=== PATIENT | female | born 1990 | race Hispanic/Latino ===

== ENCOUNTER 2018-07-15 08:18 | Emergency (ER) | payer OTHER ==
--- OUTSIDE RECORDS SUMMARY | 2018-07-15 08:21 | XMS REPORT ---
:1990 [facility] Address [address] [place] [address] Care Team Providers Name Role Phone EDWARD THAKKAR Unavailable Unavailable Problems This patient has no known problems. Allergies, Adverse Reactions, Alerts This patient has no known allergies or adverse reactions. Medications This patient has no known medications. Encounters Start End Encounter Admission Attending Care Care Encounter Date/Time Date/Time Type Type Clinicians Facility Department ID 2017-12-02 2017-12-02 Emergency E BRAYAN THAKKAR [facility] [id number] 11:36:00 12:06:00 EDWARD
[2018-07-15] MEDS ORDERED: NA CHLORIDE 0.9% 1,000 ML ONE (09:06)
[2018-07-15 09:32] LABS: Absolute Lymphocytes (CBC) 1.1 K/uL (0.7-4.9); Absolute Monocytes 0.4 K/uL (0.1-1.3); Absolute Neutrophil 2.2 K/uL (1.8-8.0); Basophils % 0.2 % (0-1.3); Eosinophils % 1.2 % (0-4.4); Hematocrit 37.5 % (36.0-45.0); Lymphocytes % 28.2 % (15.3-44.8); MCH 24.1 pg (27.0-35.0); MCV 72.9 fL (80-100); MPV 7.9 fL (7.6-11.3); Monocytes % 11.7 % (3.3-12.3); RBC Red Blood Cell Count 5.15 M/uL (3.86-4.86)
[2018-07-15 09:47] LABS: ALT/SGPT 55 U/L (12-78); AST/SGOT 36 U/L (15-37); Albumin 3.7 g/dL (3.4-5.0); Alkaline Phosphatase 78 U/L (45-117); BUN Blood Urea Nitrogen 13 mg/dL (7-18); Bicarbonate 24 mmol/L (21-32); Bilirubin Direct < 0.1 mg/dL (0-0.2); Bilirubin Total 0.2 mg/dL (0.2-1.0); Glucose Level 102 mg/dL (74-106); Lipase 117 U/L (73-393); Potassium 3.8 mmol/L (3.5-5.1); Protein, Total 8.5 g/dL (6.4-8.2); Sodium Level 139 mmol/L (136-145)
[2018-07-15 10:15] LABS: Urine Blood NEGATIVE (NEG); Urine Glucose NEGATIVE (NEG); Urine Protein NEGATIVE (NEG); Urine Specific Gravity 1.025 (1.005-1.030); Urine pH 5.5 (5.0-7.0)
--- NOTE | 2018-07-15 10:36 | RAD REPORT ---
EXAM DESCRIPTION: CT - Abdomen Pelvis W Contrast - 07/15/2018 10:13 am CLINICAL HISTORY: Abdominal pain, prior cholecystectomy, prior ectopic COMPARISON: None. TECHNIQUE: Biphasic, helical CT imaging of the abdomen and pelvis was performed following 100 ml non -ionic IV contrast. Oral contrast was given. All CT scans are performed using dose optimization technique as appropriate and may include automated exposure control or mA/KV adjustment according to patient size. FINDINGS: No suspicious findings in the lung bases. The liver, spleen, and pancreas show no suspicious findings. Cholecystectomy clips are present. No bi liary tree dilatation. Symmetric renal function is seen with no hydronephrosis or suspicious renal mass. No pyelonephritis o r acute renal parenchymal process. Contracted urinary bladder shows no suspicious finding. No uterine or ovarian suspicious finding. There is a 2.3 centimeter left ovarian or paraovarian cyst and a probable 15 millimeter right ovarian cyst. Trace free fluid in the cul-de-sac is within physiol ogic limits. No gastric dilatation or gastric wall thickening. No dilated small bowel loops. Colon is not dilated. There is no appendicitis. Patient has numerous central mesenteric lymph nodes. There is a mild congestion or edema of the mesen teric fat. No abnormal aortic lymphadenopathy. There are few nonspecific aortoiliac chain lymph nodes . No free air or pneumatosis. No hernia, mass or bulky lymphadenopathy. No adrenal abnormality. No suspicious bony findings. IMPRESSION: Moderately prominent mesenteric adenitis pattern. No appendicitis or emergent finding.
--- NOTE | 2018-07-15 10:39 | ER ---
Nurse's Notes [facility] Name: Lesly Carlin Age: 27 yrs Sex: Female : 1990 Arrival Date: 07/15/2018 Time: 08:22 Bed 20 Private MD: None, None Diagnosis: Nonspecific mesenteric lymphadenitis Presentation: 07/15 08:45 Presenting complaint: Patient states: has had mid abd pain since Friday, also has iw diarrhea and nausea, vomited once, son was diagnosed with stomach flu recently. Transition of care: patient was not received from another setting of care. Onset of symptoms was July 15, 2018. 08:45 Method Of Arrival: Ambulatory iw 08:45 Acuity: DI 3 iw 08:48 Risk Assessment: Do you want to hurt yourself or someone else? Patient reports no tw2 desire to harm self or others. Initial Sepsis Screen: Does the patient meet any 2 criteria? No. Patient's initial sepsis screen is negative. Does the patient have a suspected source of infection? No. Patient's initial sepsis screen is negative. Care prior to arrival: None. 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 tw2 Historical: - Allergies: 08:57 Morphine; iw - PMHx: 08:57 Anxiety; PTSD; Anemia; iw - PSHx: 08:57 Cholecystectomy; ectopic ; iw - Immunization history:: Adult Immunizations up to date. - Ebola Screening: : Patient denies travel to an Ebola-affected area in the 21 days before illness onset. - Social history:: Smoking status: Patient/guardian denies using tobacco. Screenin:48 Abuse screen: Denies threats or abuse. Nutritional screening: No deficits noted. tw2 Tuberculosis screening: No symptoms or risk factors identified. Fall Risk None identified. Assessment: 09:17 General: Appears in no apparent distress. obese, well groomed, Behavior is calm, tw2 cooperative, appropriate for age. Pain: Complains of pain in abdomen. Neuro: Level of Consciousness is awake, alert, obeys commands, Oriented to person, place, time, situation. Cardiovascular: Denies chest pain, shortness of breath, Heart tones S1 S2 Patient's skin is warm and dry. Respiratory: Airway is patent Respiratory effort is even, unlabored, Respiratory pattern is regular, symmetrical, Breath sounds are clear bilaterally. GI: Abdomen is round non-distended, Bowel sounds present X 4 quads. Abd is soft X 4 quads Reports diarrhea, nausea, vomiting. : No signs and/or symptoms were reported regarding the genitourinary system. EENT: No signs and/or symptoms were reported regarding the EENT system. Derm: No signs and/or symptoms reported regarding the dermatologic system. Skin is intact, is healthy with good turgor, Skin temperature is warm. Musculoskeletal: Range of motion: intact in all extremities. 10:10 Reassessment: Patient appears in no apparent distress at this time. No changes from tw2 previously documented assessment. Patient and/or family updated on plan of care and expected duration. Pain level reassessed. Patient is alert, oriented x 3, equal unlabored respirations, skin warm/dry/pink. 10:42 Reassessment: Patient appears in no apparent distress at this time. No changes from tw2 previously documented assessment. Patient and/or family updated on plan of care and expected duration. Pain level reassessed. Patient is alert, oriented x 3, equal unlabored respirations, skin warm/dry/pink. Vital Signs: 08:55 BP 125 / 72; Pulse 71; Resp 16; Temp 98.1(O); Pulse Ox 98% on R/A; Weight 120.2 kg; iw Height 5 ft. 9 in. (175.26 cm); 09:55 BP 91 / 52; Pulse 58; Resp 17; Pulse Ox 97% on R/A; tw2 10:09 BP 91 / 44; Pulse 61; Resp 17; Pulse Ox 98% on R/A; tw2 10:42 BP 90 / 64; Pulse 52; Resp 17; Pulse Ox 100% on R/A; tw2 08:55 Body Mass Index 39.13 (120.20 kg, 175.26 cm) iw ED Course: 08:22 Patient arrived in ED. mr 08:23 None, None is Private Physician. mr 08:24 Daniel Loera PA is PHCP. jr8 08:24 Saleem Gates MD is Attending Physician. jr8 08:46 Beth Avilez, DEVENDRA is Primary Nurse. tw2 08:48 Arm band placed on. tw2 08:48 Bed in low position. Call light in reach. Pulse ox on. NIBP on. tw2 08:55 Triage completed. iw 09:17 Missed attempt(s): 22 gauge in right antecubital area. Bleeding controlled, band aid tw2 applied, catheter tip intact. Inserted saline lock: 22 gauge in right antecubital area, using aseptic technique. Blood collected. 10:14 CT Abd/Pelvis - W/Contrast In Process Unspecified. EDND 10:19 CT completed. Patient tolerated procedure well. Patient moved to TN via wheelchair. Patient moved back from TN. 10:46 No provider procedures requiring assistance completed. IV discontinued, intact, tw2 bleeding controlled, No redness/swelling at site. Pressure dressing applied. Administered Medications: 09:16 Drug: NS 0.9% 1000 ml Route: IV; Rate: 1000 ml; Site: right antecubital; tw2 10:41 Follow up: IV Status: Completed infusion; IV Intake: 1000ml tw2 Intake: 10:41 IV: 1000ml; Total: 1000ml. tw2 Outcome: 10:38 Discharge ordered by . arya 10:46 Discharged to home ambulatory. tw2 10:46 Condition: stable 10:46 Discharge instructions given to patient, Instructed on discharge instructions, follow up and referral plans. no drinking with medication, no driving heavy equipment, medication usage, Demonstrated understanding of instructions, follow-up care, medications, Prescriptions given X 2. 10:47 Patient left the ED. tw2 Signatures: Dispatcher [employer] EDND Zulema Balderas Susan sj Williams, Irene, RN DEVENDRA Daniel Loera PA PA jr8 Wise, Tara, RN RN tw2
--- NOTE | 2018-07-15 10:39 | EDPHYS ---
Physician Documentation [facility] Name: Lesly Carlin Age: 27 yrs Sex: Female : 1990 Arrival Date: 07/15/2018 Time: 08: Bed 20 Private MD: None, None ED Physician Saleem Gates HPI: 07/15 08:58 This 27 yrs old Female presents to ER via Ambulatory with complaints of jr8 Abdominal Pain. 08:58 The patient presents with abdominal pain in the upper abdomen. Onset: The jr8 symptoms/episode began/occurred acutely, 1 week(s) ago. The symptoms do not radiate. Associated signs and symptoms: Pertinent positives: nausea, vomiting, and diarrhea. The symptoms are described as crampy. Modifying factors: The symptoms are alleviated by nothing, the symptoms are aggravated by nothing. Severity of pain: At its worst the pain was moderate in the emergency department the pain is unchanged. The patient has not experienced similar symptoms in the past. The patient has not recently seen a physician. 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 tw2 Historical: - Allergies: 08:57 Morphine; iw - PMHx: 08:57 Anxiety; PTSD; Anemia; iw - PSHx: 08:57 Cholecystectomy; ectopic ; iw - Immunization history:: Adult Immunizations up to date. - Ebola Screening: : Patient denies travel to an Ebola-affected area in the 21 days before illness onset. - Social history:: Smoking status: Patient/guardian denies using tobacco. ROS: 08:58 Eyes: Negative for injury, pain, redness, and discharge, ENT: Negative for injury, jr8 pain, and discharge, Neck: Negative for injury, pain, and swelling, Cardiovascular: Negative for chest pain, palpitations, and edema, Respiratory: Negative for shortness of breath, cough, wheezing, and pleuritic chest pain, Back: Negative for injury and pain, MS/Extremity: Negative for injury and deformity, Skin: Negative for injury, rash, and discoloration, Neuro: Negative for headache, weakness, numbness, tingling, and seizure. 08:58 Abdomen/GI: Positive for abdominal pain, nausea, vomiting, and diarrhea, Negative for abdominal cramps, abdominal distension, anorexia, dysphagia, hematemesis, black/tarry stool, rectal pain, rectal bleeding, bowel incontinence, flatulence. Exam: 08:58 Eyes: Pupils equal round and reactive to light, extra-ocular motions intact. Lids and jr8 lashes normal. Conjunctiva and sclera are non-icteric and not injected. Cornea within normal limits. Periorbital areas with no swelling, redness, or edema. ENT: Nares patent. No nasal discharge, no septal abnormalities noted. Tympanic membranes are normal and external auditory canals are clear. Oropharynx with no redness, swelling, or masses, exudates, or evidence of obstruction, uvula midline. Mucous membranes moist. Neck: Trachea midline, no thyromegaly or masses palpated, and no cervical lymphadenopathy. Supple, full range of motion without nuchal rigidity, or vertebral point tenderness. No Meningismus. Cardiovascular: Regular rate and rhythm with a normal S1 and S2. No gallops, murmurs, or rubs. Normal PMI, no JVD. No pulse deficits. Respiratory: Lungs have equal breath sounds bilaterally, clear to auscultation and percussion. No rales, rhonchi or wheezes noted. No increased work of breathing, no retractions or nasal flaring. Back: No spinal tenderness. No costovertebral tenderness. Full range of motion. Skin: Warm, dry with normal turgor. Normal color with no rashes, no lesions, and no evidence of cellulitis. MS/ Extremity: Pulses equal, no cyanosis. Neurovascular intact. Full, normal range of motion. Neuro: Awake and alert, GCS 15, oriented to person, place, time, and situation. Cranial nerves II-XII grossly intact. Motor strength 5/5 in all extremities. Sensory grossly intact. Cerebellar exam normal. Normal gait. 08:58 Abdomen/GI: Inspection: obese Bowel sounds: active, all quadrants, Palpation: soft, in all quadrants, mild abdominal tenderness, in the right upper quadrant, upper mid abdomen, mass, is not appreciated, rebound tenderness, is not appreciated, voluntary guarding, is not appreciated, involuntary guarding, is not appreciated, no appreciated organomegaly, Indicators: McBurney's point is not tender, Paz's sign is negative, Rovsing's sign is negative, Liver: tenderness, is not appreciated. Vital Signs: 08:55 BP 125 / 72; Pulse 71; Resp 16; Temp 98.1(O); Pulse Ox 98% on R/A; Weight 120.2 kg; iw Height 5 ft. 9 in. (175.26 cm); 09:55 BP 91 / 52; Pulse 58; Resp 17; Pulse Ox 97% on R/A; tw2 10:09 BP 91 / 44; Pulse 61; Resp 17; Pulse Ox 98% on R/A; tw2 10:42 BP 90 / 64; Pulse 52; Resp 17; Pulse Ox 100% on R/A; tw2 08:55 Body Mass Index 39.13 (120.20 kg, 175.26 cm) iw MDM: 08:47 Patient medically screened. jr8 10:38 Data reviewed: vital signs, nurses notes, lab test result(s), radiologic studies, CT jr8 scan, and as a result, I will discharge patient. Data interpreted: Pulse oximetry: on room air is 98 %. Interpretation: normal. Counseling: I had a detailed discussion with the patient and/or guardian regarding: the historical points, exam findings, and any diagnostic results supporting the discharge/admit diagnosis, lab results, radiology results, the need for outpatient follow up, a family practitioner, to return to the emergency department if symptoms worsen or persist or if there are any questions or concerns that arise at home. Response to treatment: the patient's symptoms have mildly improved after treatment, patient is well hydrated. 07/15 08:57 Order name: Basic Metabolic Panel; Complete Time: 07/15 08:57 Order name: CBC with Diff; Complete Time: :07/15 08:57 Order name: Creatinine for Radiology; Complete Time: 07/15 08:57 Order name: Hepatic Function; Complete Time: :07/15 08:57 Order name: Lipase; Complete Time: :07/15 09:23 Order name: Urine Dipstick--Ancillary (enter results); Complete Time: 10:25 07/15 08:57 Order name: Urine Test (obtain specimen); Complete Time: 09:16 07/15 08:57 Order name: IV Saline Lock; Complete Time: 09:17 07/15 08:57 Order name: Labs collected and sent; Complete Time: :07/15 08:57 Order name: Urine Dipstick-Ancillary (obtain specimen); Complete Time: 09:17 jr8 07/15 09:23 Order name: Urine --Ancillary (enter results); Complete Time: 10:25 bd 07/15 09:53 Order name: CT Abd/Pelvis - W/Contrast; Complete Time: 10:38 8 Administered Medications: 09:16 Drug: NS 0.9% 1000 ml Route: IV; Rate: 1000 ml; Site: right antecubital; tw2 10:41 Follow up: IV Status: Completed infusion; IV Intake: 1000ml tw2 Disposition: 12:39 Co-signature as Attending Physician, Saleem Gates MD. rn Disposition: 07/15/18 10:38 Discharged to Home. Impression: Nonspecific mesenteric lymphadenitis. - Condition is Stable. - Discharge Instructions: Abdominal Pain, Adult, Lymphadenopathy. - Prescriptions for Bentyl 20 mg Oral Tablet - take 1 tablet by ORAL route every 6 hours As needed; 20 tablet. Zofran 4 mg Oral Tablet - take 1 tablet by ORAL route every 12 hours As needed; 20 tablet. - Medication Reconciliation Form, Thank You Letter, Antibiotic Education, Prescription Opioid Use, Work release form form. - Follow up: Private Physician; When: As needed; Reason: Recheck today's complaints, Continuance of care, Re-evaluation by your physician. - Problem is new. - Symptoms have improved. Signatures: Dispatcher [employer] An Ocampo, RN Saleem Miranda MD MD rn Roszak, Josh, PA PA jr8 Beth Avilez RN RN tw2 Corrections: (The following items were deleted from the chart) 10:47 10:38 07/15/2018 10:38 Discharged to Home. Impression: Nonspecific mesenteric tw2 lymphadenitis. Condition is Stable. Forms are Medication Reconciliation Form, Thank You Letter, Antibiotic Education, Prescription Opioid Use. Follow up: Private Physician; When: As needed; Reason: Recheck today's complaints, Continuance of care, Re-evaluation by your physician. Problem is new. Symptoms have improved. jr8
== END 2018-07-15 10:47 | disposition home or self-care (01) ==
LOC: ER 08:18
DX: I88.0 Nonspecific mesenteric lymphadenitis (principal); Z88.5 Allergy status to narcotic agent
CPT/HCPCS: 36415; 74177; 80048; 80076; 81003; 81025; 83690; 85025; 96360; 99284; J7030; Q9967

== ENCOUNTER 2018-12-04 20:17 | Emergency (ER) | payer OTHER, SELFPAY ==
--- OUTSIDE RECORDS SUMMARY | 2018-12-04 20:20 | XMS REPORT ---
:1990 [facility] Address [address] [place] [address] [address] [place] [address] Care Team Providers Name Role Phone EDWARD THAKKAR Unavailable Unavailable Problems This patient has no known problems. Allergies, Adverse Reactions, Alerts This patient has no known allergies or adverse reactions. Medications This patient has no known medications. Encounters Start End Encounter Admission Attending Care Care Encounter Date/Time Date/Time Type Type Clinicians Facility Department ID 2017-12-02 2017-12-02 Emergency E BRAYAN THAKKAR [facility] [id number] 11:36:00 12:06:00 EDWARD
--- NOTE | 2018-12-04 21:41 | RAD REPORT ---
EXAM DESCRIPTION: CT - Head Brain Wo Cont - 12/04/2018 9:34 pm CLINICAL HISTORY: NUMBNESS Headache, drowsiness COMPARISON: No comparisons TECHNIQUE: All CT scans are performed using dose optimization technique as appropriate and may inclu de automated exposure control or mA/KV adjustment according to patient size. FINDINGS: No intracranial hemorrhage, hydrocephalus or extra-axial fluid collection.No areas of brai n edema or evidence of midline shift. Mild mucoperiosteal thickening is seen affecting the ethmoid air cells and sphenoid sinus. The calvar ium is intact. IMPRESSION: No acute intracranial abnormality. Mild paranasal sinus thickening.
[2018-12-04 21:57] LABS: Absolute Lymphocytes (CBC) 0.2 K/uL (0.7-4.9); Absolute Monocytes 0.5 K/uL (0.1-1.3); Basophils % 0.4 % (0-1.3); Hematocrit 33.5 % (36.0-45.0); Lymphocytes % 5.1 % (15.3-44.8); MPV 7.3 fL (7.6-11.3); RBC Red Blood Cell Count 4.58 M/uL (3.86-4.86)
[2018-12-04 22:08] LABS: Protime INR 1.1
[2018-12-04 22:16] LABS: ALT/SGPT 23 U/L (12-78); AST/SGOT 13 U/L (15-37); Albumin 3.6 g/dL (3.4-5.0); Alkaline Phosphatase 66 U/L (45-117); BUN Blood Urea Nitrogen 16 mg/dL (7-18); Bicarbonate 26 mmol/L (21-32); Bilirubin Direct < 0.1 mg/dL (0-0.2); Bilirubin Total 0.3 mg/dL (0.2-1.0); Glucose Level 87 mg/dL (74-106); NT PRO-BNP 55 pg/mL (<125); Potassium 3.6 mmol/L (3.5-5.1); Protein, Total 7.7 g/dL (6.4-8.2); Sodium Level 141 mmol/L (136-145); Troponin (Emerg Dept Use Only) < 0.02 ng/mL (0.0-0.045)
[2018-12-05] MEDS ORDERED: WATER FOR INJ,STERILE 10 ML ONE (01:05)
[2018-12-05] MEDS ORDERED: CEFTRIAXONE 1000 MG/VIAL ONE (01:05)
--- NOTE | 2018-12-05 01:23 | ER ---
Nurse's Notes [facility] Name: Lesly Cisneros Age: 28 yrs Sex: Female : 1990 Arrival Date: 12/04/2018 Time: 20:20 Bed 15 Private MD: Diagnosis: Acute sinusitis Presentation: 12/04 20:40 Presenting complaint: Patient states: I have been having fever and chills and have had jb4 nausea and vomiting. I have had numbness in the past but this is different, this time it is in my face. 20:40 Transition of care: patient was not received from another setting of care. Onset of jb4 symptoms was December 04, 2018. Risk Assessment: Do you want to hurt yourself or someone else? Patient reports no desire to harm self or others. Initial Sepsis Screen: Does the patient meet any 2 criteria? Does the patient have a suspected source of infection? No. Patient's initial sepsis screen is negative. Care prior to arrival: None. 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 - Social history:: Smoking status: Patient/guardian denies using tobacco. - Ebola Screening: : No symptoms or risks identified at this time. Screenin:40 Abuse screen: Denies threats or abuse. Nutritional screening: No deficits noted. jb4 Tuberculosis screening: No symptoms or risk factors identified. Fall Risk None identified. Assessment: 20:40 General: Appears in no apparent distress. comfortable, Behavior is calm, cooperative. jb4 Pain: Denies pain. Neuro: Level of Consciousness is awake, alert, obeys commands, Oriented to person, place, time, situation, Casing Cleaner are equal bilaterally Moves all extremities. Full function Gait is steady, Speech is normal, Facial symmetry appears normal, Pupils are PERRLA, Numbness in right cheek. Cardiovascular: Patient's skin is warm and dry. Respiratory: Airway is patent Respiratory effort is even, unlabored, Respiratory pattern is regular, symmetrical. GI: No signs and/or symptoms were reported involving the gastrointestinal system. : No signs and/or symptoms were reported regarding the genitourinary system. EENT: No signs and/or symptoms were reported regarding the EENT system. Derm: Skin is intact, Skin is pink, warm \T\ dry. Musculoskeletal: Circulation, motion, and sensation intact. 22:00 Reassessment: Patient appears in no apparent distress at this time. Patient and/or jb4 family updated on plan of care and expected duration. Pain level reassessed. Patient is alert, oriented x 3, equal unlabored respirations, skin warm/dry/pink. 23:15 Reassessment: Patient appears in no apparent distress at this time. Patient and/or aa1 family updated on plan of care and expected duration. Pain level reassessed. Patient is alert, oriented x 3, equal unlabored respirations, skin warm/dry/pink. 12/05 00:15 Reassessment: Patient appears in no apparent distress at this time. Patient and/or jb4 family updated on plan of care and expected duration. Pain level reassessed. Patient is alert, oriented x 3, equal unlabored respirations, skin warm/dry/pink. 01:15 Reassessment: Patient appears in no apparent distress at this time. Patient and/or jb4 family updated on plan of care and expected duration. Pain level reassessed. Patient is alert, oriented x 3, equal unlabored respirations, skin warm/dry/pink. 01:54 Reassessment: Patient appears in no apparent distress at this time. Patient and/or jb4 family updated on plan of care and expected duration. Pain level reassessed. Patient is alert, oriented x 3, equal unlabored respirations, skin warm/dry/pink. Discussed D/c,F/u with pt, denies questions or concerns. Vital Signs: 12/04 20:40 BP 147 / 74; Pulse 110; Resp 22; Temp 98.5; Pulse Ox 99% on R/A; Weight 113.4 kg (R); jb4 Height 5 ft. 9 in. (175.26 cm); 20:58 BP 121 / 83; Pulse 100; Resp 22; Pulse Ox 100% on R/A; mt 22:30 BP 122 / 70; Pulse 96; Resp 16; Pulse Ox 100% on R/A; aa1 23:45 BP 117 / 61; Pulse 89; Resp 18; Pulse Ox 99% on R/A; jb4 12/05 00:45 BP 116 / 51; Pulse 92; Resp 16; Pulse Ox 96% on R/A; jb4 01:45 BP 122 / 73; Pulse 101; Resp 16; Pulse Ox 100% on R/A; jb4 12/04 20:40 Body Mass Index 36.92 (113.40 kg, 175.26 cm) jb4 NIH Stroke Scale Scores: 12/04 20:40 NIHSS Score: 0 aa1 ED Course: 20:20 Patient arrived in ED. al2 20:40 Arm band placed on left wrist. jb4 20:40 Patient has correct armband on for positive identification. Bed in low position. Call [facility] light in reach. Side rails up X 1. threat monitoring analyst on. Pulse ox on. NIBP on. 20:46 Uli Healy, DEVENDRA is Primary Nurse. jb4 21:00 Klever Archer NP is PHCP. pm1 21:00 Carlos Ewing MD is Attending Physician. pm1 21:05 Triage completed. jb4 21:[address] vm2 21:35 CT Head Brain wo Cont In Process Unspecified. EDMS 21:41 XRAY Chest (1 view) In Process Unspecified. EDMS 12/05 00:09 Inserted saline lock: 20 gauge in right antecubital area, using aseptic technique. mt Blood collected. 01:53 Assist provider with bone marrow aspiration. Patient did not have IV access during this [facility] emergency room visit. Administered Medications: 00:54 CANCELLED (Physician Discretion): Rocephin 1 grams IV at calculated rate once; Given pm1 slow IV push per pharmacy instructions 01:03 Drug: Rocephin (cefTRIAXone) 1 grams Route: IM; Site: right gluteus; [facility] 01:56 Follow up: Response: No adverse reaction [facility] Outcome: 01:22 Discharge ordered by . pm1 01:53 Discharged to home ambulatory. jb4 01:53 Condition: stable 01:53 Discharge instructions given to patient, Instructed on discharge instructions, follow up and referral plans. medication usage, Demonstrated understanding of instructions, follow-up care, medications, Prescriptions given X 2. 01:56 Patient left the ED. jb4 NIH Stroke Scale - NIH Stroke Score Date: 12/04/2018 Time: 20:40 Total Score = 0 1a. Level of Consciousness (LOC) - 0(Alert) 1b. Level of Consciousness (LOC) (Year \T\ Age) - 0(Both) 1c. LOC Commands (Open \T\ Closes Eyes/Post Partum Nurse) - 0(Both) 2. Best Gaze (Lateral Gaze Paresis) - 0(Normal) 3. Visual Field Loss - 0(No visual loss) 4. Facial Palsy - 0(Normal) 5a. Left Arm: Motor (10-second hold) - 0(No drift) 5b. Right Arm: Motor (10-second hold) - 0(No drift) 6a. Left Leg: Motor (5-second hold - always test supine) - 0(No drift) 6b. Right Leg: Motor (5-second hold - always test supine) - 0(No drift) 7. Limb Ataxia (finger/nose \T\ heel/ramos - test with eyes open) - 0(Absent) 8. Sensory Loss (pinprick arms/legs/face) - 0(Normal) 9. Best Language: Aphasia (description/naming/reading) - 0(No aphasia) 10. Dysarthria (speech clarity - read or repeat words) - 0(Normal) 11. Extinction and Inattention (visual/tactile/auditory/spatial/personal) - 0(No abnormality) Initials: aa1 Signatures: Dispatcher [employer] EDWaleska Kang RN RN aa1 Klever Archer, TREVON TANK BUILDER AND ERECTOR [email or web address] Uli Healy RN RN jb4 Kelly White2 Maite Gary mt, Venita guerrero2
--- NOTE | 2018-12-05 01:23 | EDPHYS ---
Physician Documentation [facility] Name: Lesly Cisneros Age: 28 yrs Sex: Female : 1990 Arrival Date: 12/04/2018 Time: 20:20 Bed 15 Private MD: ED Physician Carlos Ewing HPI: 12/05 00:00 This 28 yrs old Female presents to ER via Ambulatory with complaints of Right pm1 sinus area numbness and Left sinus pain. 00:00 Onset: The symptoms/episode began/occurred 1 hour prior to arrival. Modifying factors: pm1 The symptoms are alleviated by nothing. the symptoms are aggravated by nothing. Associated signs and symptoms: Pertinent positives: fever, Pertinent negatives: cough, sore throat. Severity of symptoms:. The patient has not experienced similar symptoms in the past. The patient has not recently seen a physician. 00:00 Associated signs and symptoms: Pertinent positives: chills, nausea and vomiting. Has pm1 had numbness to bilateral hands and feet on and off for multiple years. 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 - Social history:: Smoking status: Patient/guardian denies using tobacco. - Ebola Screening: : No symptoms or risks identified at this time. ROS: 12/05 00:00 Constitutional: Negative for fever, chills, and weight loss, Eyes: Negative for injury, pm1 pain, redness, and discharge, ENT: Negative for injury, pain, and discharge, Neck: Negative for injury, pain, and swelling, Cardiovascular: Negative for chest pain, palpitations, and edema, Respiratory: Negative for shortness of breath, cough, wheezing, and pleuritic chest pain, Abdomen/GI: Negative for abdominal pain, nausea, vomiting, diarrhea, and constipation, Back: Negative for injury and pain, : Negative for injury, bleeding, discharge, and swelling, MS/Extremity: Negative for injury and deformity, Skin: Negative for injury, rash, and discoloration. Neuro: Positive for numbness to right bridge of nose and sinus. Tenderness to left bridge of nose and sinus. Exam: 00:00 Constitutional: This is a well developed, well nourished patient who is awake, alert, pm1 and in no acute distress. Eyes: Pupils equal round and reactive to light, extra-ocular motions intact. Lids and lashes normal. Conjunctiva and sclera are non-icteric and not injected. Cornea within normal limits. Periorbital areas with no swelling, redness, or edema. 00:00 ENT: Nares patent. No nasal discharge, no septal abnormalities noted. Tympanic membranes are normal and external auditory canals are clear. Oropharynx with no redness, swelling, or masses, exudates, or evidence of obstruction, uvula midline. Mucous membranes moist. Neck: Trachea midline, no thyromegaly or masses palpated, and no cervical lymphadenopathy. Supple, full range of motion without nuchal rigidity, or vertebral point tenderness. No Meningismus. Chest/axilla: Normal chest wall appearance and motion. Nontender with no deformity. No lesions are appreciated. Cardiovascular: Regular rate and rhythm with a normal S1 and S2. No gallops, murmurs, or rubs. Normal PMI, no JVD. No pulse deficits. Respiratory: Lungs have equal breath sounds bilaterally, clear to auscultation and percussion. No rales, rhonchi or wheezes noted. No increased work of breathing, no retractions or nasal flaring. Abdomen/GI: Soft, non-tender, with normal bowel sounds. No distension or tympany. No guarding or rebound. No evidence of tenderness throughout. Back: No spinal tenderness. No costovertebral tenderness. Full range of motion. Skin: Warm, dry with normal turgor. Normal color with no rashes, no lesions, and no evidence of cellulitis. MS/ Extremity: Pulses equal, no cyanosis. Neurovascular intact. Full, normal range of motion. 00:00 Head/face: Sinus tenderness, that is mild, is located over the right ethmoid sinus, left ethmoid sinus, right maxillary sinus and left maxillary sinus. 00:00 Neuro: Orientation: is normal, Mentation: is normal, Memory: is normal, Cranial nerves: CN II- XII are normal as tested, Cerebellar function: Romberg testing is negative, normal finger to nose testing, heel to ramos testing is normal, Motor: is normal, moves all fours, Sensation: is normal, no obvious gross deficits, Gait: is steady, at a normal pace, without difficulty. Vital Signs: 12/04 20:40 BP 147 / 74; Pulse 110; Resp 22; Temp 98.5; Pulse Ox 99% on R/A; Weight 113.4 kg (R); 4 Height 5 ft. 9 in. (175.26 cm); 20:58 BP 121 / 83; Pulse 100; Resp 22; Pulse Ox 100% on R/A; mt 22:30 BP 122 / 70; Pulse 96; Resp 16; Pulse Ox 100% on R/A; aa1 23:45 BP 117 / 61; Pulse 89; Resp 18; Pulse Ox 99% on R/A; [facility] 12/05 00:45 BP 116 / 51; Pulse 92; Resp 16; Pulse Ox 96% on R/A; [facility] 01:45 BP 122 / 73; Pulse 101; Resp 16; Pulse Ox 100% on R/A; [facility] 12/04 20:40 Body Mass Index 36.92 (113.40 kg, 175.26 cm) [facility] NIH Stroke Scale Scores: 12/04 20:40 NIHSS Score: 0 aa1 MDM: 21:07 Patient medically screened. [facility] 12/05 01:21 Data reviewed: vital signs. Data interpreted: Pulse oximetry: on room air is 99 %. pm1 Interpretation: normal. Counseling: I had a detailed discussion with the patient and/or guardian regarding: the historical points, exam findings, and any diagnostic results supporting the discharge/admit diagnosis, lab results, radiology results, the need for outpatient follow up, to return to the emergency department if symptoms worsen or persist or if there are any questions or concerns that arise at home. 12/04 21:08 Order name: Basic Metabolic Panel; Complete Time: 00:39 pm1 12/04 21:08 Order name: CBC with Diff; Complete Time: 00:39 pm1 12/04 21:08 Order name: LFT's; Complete Time: 00:39 pm1 12/04 21:08 Order name: Magnesium; Complete Time: 00:39 pm1 12/04 21:08 Order name: NT PRO-BNP; Complete Time: 00:39 pm1 12/04 21:08 Order name: PT-INR; Complete Time: 00:39 pm12/04 21:08 Order name: CT Head Brain wo Cont; Complete Time: 21:56 pm12/04 21:08 Order name: Troponin (emerg Dept Use Only); Complete Time: 00:39 pm12/04 21:08 Order name: XRAY Chest (1 view) 12/04 21:08 Order name: EKG; Complete Time: 21:09 pm12/04 21:08 Order name: Cardiac monitoring; Complete Time: 22:21 pm12/04 21:08 Order name: Flu; Complete Time: 00:39 pm12/04 21:08 Order name: EKG - Nurse/Tech; Complete Time: 22:21 pm12/04 21:08 Order name: IV Saline Lock; Complete Time: 22:21 pm12/04 21:08 Order name: Labs collected and sent; Complete Time: 21:55 pm12/04 21:08 Order name: O2 Per Protocol; Complete Time: 21:55 pm12/04 21:08 Order name: O2 Sat Monitoring; Complete Time: 21:55 pm1 Administered Medications: 00:54 CANCELLED (Physician Discretion): Rocephin 1 grams IV at calculated rate once; Given pm1 slow IV push per pharmacy instructions 01:03 Drug: Rocephin (cefTRIAXone) 1 grams Route: IM; Site: right gluteus; jb4 01:56 Follow up: Response: No adverse reaction jb4 Disposition: 12/05/18 01:22 Discharged to Home. Impression: Acute sinusitis. - Condition is Stable. - Discharge Instructions: Sinusitis, Adult. - Prescriptions for Amoxicillin 500 mg Oral Capsule - take 1 capsule by ORAL route every 8 hours for 10 days; 30 tablet. Zyrtec- D 5-120 mg Oral Tablet Sustained Release 12 hr - take 1 tablet by ORAL route every 12 hours As needed; 20 tablet. - Medication Reconciliation Form, Thank You Letter, Antibiotic Education form. - Follow up: Emergency Department; When: As needed; Reason: Worsening of condition. Follow up: Private Physician; When: 2 - 3 days; Reason: Recheck today's complaints, Continuance of care, Re-evaluation by your physician. - Problem is new. - Symptoms have improved. NIH Stroke Scale - NIH Stroke Score Date: 12/04/2018 Time: 20:40 Total Score = 0 1a. Level of Consciousness (LOC) - 0(Alert) 1b. Level of Consciousness (LOC) (Year \T\ Age) - 0(Both) 1c. LOC Commands (Open \T\ Closes Eyes/Tool Crib Attendant) - 0(Both) 2. Best Gaze (Lateral Gaze Paresis) - 0(Normal) 3. Visual Field Loss - 0(No visual loss) 4. Facial Palsy - 0(Normal) 5a. Left Arm: Motor (10-second hold) - 0(No drift) 5b. Right Arm: Motor (10-second hold) - 0(No drift) 6a. Left Leg: Motor (5-second hold - always test supine) - 0(No drift) 6b. Right Leg: Motor (5-second hold - always test supine) - 0(No drift) 7. Limb Ataxia (finger/nose \T\ heel/ramos - test with eyes open) - 0(Absent) 8. Sensory Loss (pinprick arms/legs/face) - 0(Normal) 9. Best Language: Aphasia (description/naming/reading) - 0(No aphasia) 10. Dysarthria (speech clarity - read or repeat words) - 0(Normal) 11. Extinction and Inattention (visual/tactile/auditory/spatial/personal) - 0(No abnormality) Initials: aa1 Addendum: 12/08/2018 06:53 Co-signature as Attending Physician, Carlos Ewing MD I agree with the [facility] assessment and plan of care. Signatures: Dispatcher [employer] EDCarlos Bowman MD MD [facility] Klever Archer NP KNIT TUBING DYER pm1 Uli Healy RN RN jb4 Corrections: (The following items were deleted from the chart) 12/05 00:54 00:40 Rocephin 1 grams IV at calculated rate once; Given slow IV push per pm1 pharmacy instructions ordered. pm1 01:56 01:22 12/05/2018 01:22 Discharged to Home. Impression: Acute sinusitis. jb4 Condition is Stable. Forms are Medication Reconciliation Form, Thank You Letter, Antibiotic Education, Prescription Opioid Use. Follow up: Emergency Department; When: As needed; Reason: Worsening of condition. Follow up: Private Physician; When: 2 - 3 days; Reason: Recheck today's complaints, Continuance of care, Re-evaluation by your physician. Problem is new. Symptoms have improved. pm1
--- NOTE | 2018-12-05 06:36 | EKG ---
Test Date: 2018-12-04 Test Time: 22:11:35 Rubber Belt Splicer: VADIM MEASUREMENT RESULTS: Intervals: Rate: 98 IN: 136 QRSD: 78 QT: 340 QTc: 434 [place]: P: 17 IN: 136 QRS: 41 T: 32 INTERPRETIVE STATEMENTS: Normal sinus rhythm with sinus arrhythmia Normal ECG No previous ECG available for comparison Electronically Signed On 12-05-18 06:36:06 NUTRITION REPRESENTATIVE by Darryl Adame
--- NOTE | 2018-12-05 08:35 | RAD REPORT ---
EXAM DESCRIPTION: RAD - Chest Single View - 12/04/2018 9:42 pm CLINICAL HISTORY: Fever and chills COMPARISON: None. TECHNIQUE: AP portable chest image was obtained 2141 hours . FINDINGS: No consolidations seen. Lung markings in the left base are slightly prominent; however, th ere is also motion. No convincing evidence for pneumonia at this time. Heart and vasculature are norm al. No measurable pleural effusion and no pneumothorax. No acute bony abnormality seen. No acute aort ic findings suspected. IMPRESSION: No acute cardiopulmonary process.
== END 2018-12-05 01:56 | disposition home or self-care (01) ==
LOC: ER 20:17
DX: J01.90 Acute sinusitis, unspecified (principal); Z88.5 Allergy status to narcotic agent; Z88.6 Allergy status to analgesic agent
CPT/HCPCS: 36415; 70450; 71045; 80048; 80076; 83735; 83880; 84484; 85025; 85610; 87804; 93005; 96372; 99285

== ENCOUNTER 2019-09-04 14:09 | Emergency (ER) | payer OTHER ==
[2019-09-04 15:25] LABS: Absolute Lymphocytes (CBC) 1.6 K/uL (0.7-4.9); Basophils % 0.7 % (0-1.3); Hematocrit 34.5 % (36.0-45.0); MPV 7.8 fL (7.6-11.3); RBC Red Blood Cell Count 4.79 M/uL (3.86-4.86)
[2019-09-04 15:40] LABS: Potassium 4.2 mmol/L (3.5-5.1)
--- NOTE | 2019-09-04 16:14 | RAD REPORT ---
EXAM DESCRIPTION: CT - Soft Tissue Neck W/Contr CLINICAL HISTORY: pain and swelling to dloor of mouth Pain and swelling COMPARISON: Chest Single View dated 12/04/[address] scans are performed using dose optimization technique as appropriate and may includ e automated exposure control or mA/KV adjustment according to patient size. FINDINGS: Multifocal paranasal sinus opacification is present including the ethmoid air cells, sphen oid sinus and both maxillary antra. No pathologic thickening in the nasopharynx although the adenoids are mildly thickened. No obstructing lesions affecting the fossa of Rosenmuller. Parapharyngeal fat triangles are symmetric. Both palatine tonsils appear mildly enlarged. There are numerous enlarged lymph nodes seen throughout the neck; including enlarged submandibular an d submental lymph nodes. Largest lymph node in the submandibular region measures 25 x 15 mm on the le ft. Submental lymphadenopathy measures 9 mm short axis. Level II bilateral lymphadenopathy is present largest on the left measuring 17 mm. Bilateral level III lymphadenopathy also noted, largest on the right measuring 8-9 mm in short axis. Multiple significant dental caries are present involving the maxillary molars. Small 2 mm periapical abscess is seen involving the left second maxillary molar. Salivary glands are symmetric. Vocal cords are symmetric. No prevertebral fluid or abscess. No evidence of vascular compromise. Thyroid gland is normal sized. IMPRESSION: Multiple enlarged lymph nodes are seen throughout the neck compatible with a nonspecific lymphadenitis. Recommend followup imaging in 3-6 months to ensure resolution. Poor dentition as described. Multifocal paranasal sinus disease.
--- NOTE | 2019-09-04 16:24 | ER ---
Nurse's Notes [facility] Name: Lesly Cisneros Age: 28 yrs Sex: Female : 1990 Arrival Date: 09/04/2019 Time: 14:11 Bed 18 Private MD: Unknown, Unknown Diagnosis: Acute lymphadenitis of face, head and neck;Nonspecific lymphadenitis, unspecified Presentation: 09/04 14:20 Presenting complaint: Patient states: I have ulcers in my mouth have had them in the la1 past and my pcp told me they would go away and usually they do in a few days but these have been there for 2 weeks and it is very painful. Transition of care: patient was not received from another setting of care. Onset of symptoms was September 04, 2019. Risk Assessment: Do you want to hurt yourself or someone else? Patient reports no desire to harm self or others. Initial Sepsis Screen: Does the patient meet any 2 criteria? No. Patient's initial sepsis screen is negative. Does the patient have a suspected source of infection? No. Patient's initial sepsis screen is negative. Care prior to arrival: None. 14:20 Method Of Arrival: Ambulatory la1 14:20 Acuity: DI 5 la1 14:46 Acuity: DI 3 iw Historical: - Allergies: 14:21 Morphine; la1 14:21 Tylenol-Codeine #3; la1 - PMHx: 14:21 Anemia; Anxiety; Diabetes - IDDM; PTSD; la1 - Immunization history:: Adult Immunizations up to date. - Social history:: Smoking status: Patient/guardian denies using tobacco. - Ebola Screening: : No symptoms or risks identified at this time. Screenin:22 Abuse screen: Denies threats or abuse. Nutritional screening: No deficits noted. la1 Tuberculosis screening: No symptoms or risk factors identified. Fall Risk None identified. Assessment: 14:22 Reassessment: Patient is alert, oriented x 3, equal unlabored respirations, skin la1 warm/dry/pink. General: Appears in no apparent distress. Behavior is calm. Pain: Complains of pain in mouth. EENT: Oral mucosa is moist. Multiple small ulcerations noted under toungue. 15:23 Reassessment: Patient appears in no apparent distress at this time. Patient and/or em family updated on plan of care and expected duration. Pain level reassessed. Patient is alert, oriented x 3, equal unlabored respirations, skin warm/dry/pink. 16:45 Reassessment: Patient appears in no apparent distress at this time. Patient and/or em family updated on plan of care and expected duration. Pain level reassessed. Patient is alert, oriented x 3, equal unlabored respirations, skin warm/dry/pink. Vital Signs: 14:21 BP 147 / 74; Pulse 62; Resp 16; Temp 97.6; Pulse Ox 100% on R/A; Weight 108.41 kg; la1 Height 5 ft. 9 in. (175.26 cm); 15:32 BP 116 / 83; Pulse 58; Resp 18; Pulse Ox 100% on R/A; Pain 4/10; em 14:21 Body Mass Index 35.29 (108.41 kg, 175.26 cm) la1 ED Course: 14:11 Patient arrived in ED. ag5 14:12 None, None is Private Physician. ag5 14:12 Unknown, Unknown is Private Physician. ag5 14:14 Victor Manuel Cochran MD is Attending Physician. kdr 14:21 Triage completed. la1 14:22 Arm band placed on right wrist. la1 14:22 Patient has correct armband on for positive identification. la1 14:23 Delonte Jones LVN is Primary Nurse. em 14:55 Inserted saline lock: 20 gauge in right antecubital area, using aseptic technique. em Blood collected. 14:55 Initial lab(s) drawn, by me, sent to lab. em 15:24 Radiology exam delayed due to lab results not completed at this time. (BUN/Creatinine). kw1 15:58 CT completed. Patient tolerated procedure well. Patient moved back from CT. bq 15:59 Soft Tissue Neck W/Contr In Process Unspecified. EDMS 16:44 No provider procedures requiring assistance completed. IV discontinued, intact, em bleeding controlled, No redness/swelling at site. Pressure dressing applied. Administered Medications: 16:40 Drug: SOLU-Medrol 125 mg Route: IVP; Site: right antecubital; iw 16:46 Follow up: Response: Medication administered at discharge. em 16:40 Drug: Augmentin 875 mg Route: PO; iw 16:46 Follow up: Response: Medication administered at discharge. em 16:40 Drug: Flagyl 500 mg Route: PO; iw 16:47 Follow up: Response: Medication administered at discharge. em Outcome: 16:23 Discharge ordered by . kdr 16:44 Discharged to home ambulatory. em 16:44 Condition: good 16:44 Discharge instructions given to patient, Instructed on discharge instructions, follow up and referral plans. medication usage, Demonstrated understanding of instructions, follow-up care, medications, Prescriptions given X 4. 16:48 Patient left the ED. em Signatures: Dispatcher [employer] EDMS Victor Manuel Cochran MD MD kdr Quilty, Betty bq Munoz, Edgar, PORTRAIT CONSULTANT PORTRAIT CONSULTANT em An Donato, RN RN Ant Blount RN RN la1 Kiana Connolly Ajare 5 Corrections: (The following items were deleted from the chart) 15:01 14:22 No provider procedures requiring assistance completed. la1 em 15:01 14:22 Patient did not have IV access during this emergency room visit. la1 em
--- NOTE | 2019-09-04 16:25 | EDPHYS ---
Physician Documentation [facility] Name: Lesly Cisneros Age: 28 yrs Sex: Female : 1990 Arrival Date: 09/04/2019 Time: 14:11 Bed 18 Private MD: Unknown, Unknown ED Physician Victor Manuel Cochran HPI: 09/04 14:48 This 28 yrs old Female presents to ER via Ambulatory with complaints of Mouth kdr Problem. 14:48 The patient presents with pain, swelling. The problem is located in the tongue. Onset: kdr The symptoms/episode began/occurred just prior to arrival, this morning, This has been an intermittent wax/wane problem that has become worse in the last three days. She has a mildly muffled voice and trismus., and improved. Duration: The symptoms are continuous, and are steadily getting worse, are intermittent, with no pattern. Modifying factors: The symptoms are alleviated by nothing. Associated signs and symptoms: Pertinent positives: fever, The patient states that she had a fever several days ago but none recently. Severity of symptoms: At their worst the symptoms were mild, moderate, in the emergency department the symptoms are unchanged. The patient has not experienced similar symptoms in the past. The patient has not recently seen a physician. Historical: - Allergies: 14:21 Morphine; la1 14:21 Tylenol-Codeine #3; la1 - PMHx: 14:21 Anemia; Anxiety; Diabetes - IDDM; PTSD; la1 - Immunization history:: Adult Immunizations up to date. - Social history:: Smoking status: Patient/guardian denies using tobacco. - Ebola Screening: : No symptoms or risks identified at this time. ROS: 14:48 Constitutional: Negative for fever, last two days but had a fever previously - no kdr chills, and weight loss, Eyes: Negative for injury, pain, redness, and discharge, Cardiovascular: Negative for chest pain, palpitations, and edema, Respiratory: Negative for shortness of breath, cough, wheezing, and pleuritic chest pain, Abdomen/GI: Negative for abdominal pain, nausea, vomiting, diarrhea, and constipation, Back: Negative for injury and pain, : Negative for injury, bleeding, discharge, and swelling, MS/Extremity: Negative for injury and deformity, Skin: Negative for injury, rash, and discoloration, Neuro: Negative for headache, weakness, numbness, tingling, and seizure activity. Psych: Negative for depression, anxiety, suicide ideation, homicidal ideation, and hallucinations, Allergy/Immunology: Negative for hives, rash, and allergies, Endocrine: Negative for neck swelling, polydipsia, polyuria, polyphagia, and marked weight changes, Hematologic/Lymphatic: Negative for swollen nodes, abnormal bleeding, and unusual bruising. Exam: 14:48 Constitutional: This is a well developed, well nourished patient who is awake, alert, kdr and in no acute distress. Head/Face: Normocephalic, atraumatic. Eyes: Pupils equal round and reactive to light, extra-ocular motions intact. Lids and lashes normal. Conjunctiva and sclera are non-icteric and not injected. Cornea within normal limits. Periorbital areas with no swelling, redness, or edema. Chest/axilla: Normal chest wall appearance and motion. Nontender with no deformity. No lesions are appreciated. 14:48 ENT: Mouth: The patient has a mildly muffled voice and mild trismus. Vital Signs: 14:21 BP 147 / 74; Pulse 62; Resp 16; Temp 97.6; Pulse Ox 100% on R/A; Weight 108.41 kg; la1 Height 5 ft. 9 in. (175.26 cm); 15:32 BP 116 / 83; Pulse 58; Resp 18; Pulse Ox 100% on R/A; Pain 4/10; em 14:21 Body Mass Index 35.29 (108.41 kg, 175.26 cm) la1 MDM: 14:48 Data reviewed: vital signs, nurses notes, lab test result(s), radiologic studies. kdr Counseling: I had a detailed discussion with the patient and/or guardian regarding: the historical points, exam findings, and any diagnostic results supporting the discharge/admit diagnosis, lab results, radiology results, the need for outpatient follow up. 16:23 Patient medically screened. kdr 09/04 14:44 Order name: CBC with Diff; Complete Time: 15:44 kdr 09/04 14:44 Order name: Chem 7; Complete Time: 15:44 kdr 09/04 14:59 Order name: Soft Tissue Neck W/Contr; Complete Time: 16:20 EDMS Administered Medications: 16:40 Drug: SOLU-Medrol 125 mg Route: IVP; Site: right antecubital; iw 16:46 Follow up: Response: Medication administered at discharge. em 16:40 Drug: Augmentin 875 mg Route: PO; iw 16:46 Follow up: Response: Medication administered at discharge. em 16:40 Drug: Flagyl 500 mg Route: PO; iw 16:47 Follow up: Response: Medication administered at discharge. em Disposition: 09/04/19 16:23 Discharged to Home. Impression: Acute lymphadenitis of face, head and neck, Nonspecific lymphadenitis, unspecified. - Condition is Stable. - Discharge Instructions: Lymphadenopathy. - Prescriptions for Augmentin 875- 125 mg Oral Tablet - take 1 tablet by ORAL route every 12 hours for 10 days; 20 tablet. Flagyl 500 mg Oral Tablet - take 1 tablet by ORAL route every 6 hours for 10 days; 40 tablet. Medrol (Barrett) 4 mg Oral Tablets, Dose Pack - take 1 tablet by ORAL route as directed - follow package instructions; 1 packet. Tramadol 50 mg Oral Tablet - take 1 tablet by ORAL route every 8 hours As needed as needed; 12 tablet. - Medication Reconciliation Form, Thank You Letter, Antibiotic Education, Prescription Opioid Use form. - Follow up: Private Physician; When: 2 - 3 days; Reason: If symptoms return, Further diagnostic work-up, Recheck today's complaints, Continuance of care, Re-evaluation by your physician. - Problem is new. - Symptoms have improved. - Notes: You will need to obtain a repeat CT scan of your neck and lower face in the next three (3) - to six (6) months. There were many enlarged lymphnodes in your neck and jaw. Should you have any trouble breathing you should return to the nearest Emergency Department immediately. Signatures: Dispatcher [employer] EDMS Victor Manuel Cochran MD MD [facility] Delonte Jones, PATROL SERGEANT [employer]IFF'S OFFICE PATROL SERGEANT [employer] An Donato, DEVENDRA RN iw Ant Blount RN RN la1 Corrections: (The following items were deleted from the chart) 15:11 15:06 Soft Tissue Neck W/Contr+CT.RAD.BRZ ordered. EDNM EDMS 15:21 15:15 Group A Streptococcus Rapid Sc+BA.LAB.BRZ ordered. EDNM EDMS 16:48 16:23 09/04/2019 16:23 Discharged to Home. Impression: Acute lymphadenitis of face, em head and neck; Nonspecific lymphadenitis, unspecified. Condition is Stable. Forms are Medication Reconciliation Form, Thank You Letter, Antibiotic Education, Prescription Opioid Use. Follow up: Private Physician; When: 2 - 3 days; Reason: If symptoms return, Further diagnostic work-up, Recheck today's complaints, Continuance of care, Re-evaluation by your physician. Problem is new. Symptoms have improved. kdr
[2019-09-04] MEDS ORDERED: AMOX/K CLAV 875 MG TAB ONE (16:31)
[2019-09-04] MEDS ORDERED: METHYLPREDNISOLONE 125 MG INJ ONE (16:31)
[2019-09-04] MEDS ORDERED: metroNIDAZOLE 500 MG TABLET ONE (16:31)
[2019-09-04 17:34] VITALS: TEMP 97.6; O2SAT 100
[2019-09-04 17:35] VITALS: BP 116/83
== END 2019-09-04 16:48 | disposition home or self-care (01) ==
LOC: ER 14:09
DX: L04.0 Acute lymphadenitis of face, head and neck (principal); Z88.6 Allergy status to analgesic agent; Z88.5 Allergy status to narcotic agent
CPT/HCPCS: 85025; 80048; 36415; 70491; 96374; 99284; Q9967; J2930

== ENCOUNTER 2020-05-18 19:53 | Emergency (ER) | payer SELFPAY ==
--- OUTSIDE RECORDS SUMMARY | 2020-05-18 19:55 | XMS REPORT | Continuity of Care Document ---
:1990 Author Organization [facility] t Address [address] [place] [address] Care Team Providers Name Role Phone Marcia THAKKAR Attending Clinician Unavailable BIJAN A Admitting Clinician Unavailable Problems This patient has no known problems. Allergies, Adverse Reactions, Alerts This patient has no known allergies or adverse reactions. Medications This patient has no known medications. Procedures This patient has no known procedures. Encounters Start End Encounter Admission Attending Care Care Encounter Source Date/Time Date/Time Type Type Clinicians Facility Department ID 2017-12-02 2017-12-02 Emergency E BIJAN [facility] [id number] [facility] 11:36:00 12:06:00 [facility] Results This patient has no known results.
--- NOTE | 2020-05-18 20:59 | EDPHYS ---
Physician Documentation [facility] Name: Lesly Cisneros Age: 29 yrs Sex: Female : 1990 Arrival Date: 05/18/2020 Time: 19:55 Bed 8 Private MD: ED Physician Fabricio Diaz HPI: 05/18 20:56 This 29 yrs old Female presents to ER via Ambulatory with complaints of Fever, kb Vomiting. 20:56 The patient or guardian reports cough, that is intermittent, described as moderate, kb with no sputum, flu symptoms, low-grade fever, myalgias. Onset: The symptoms/episode began/occurred 1 week(s) ago. Severity of symptoms: At their worst the symptoms were moderate, in the emergency department the symptoms are unchanged. Modifying factors: The symptoms are alleviated by nothing, the symptoms are aggravated by nothing. Associated signs and symptoms: Pertinent positives: diarrhea, fever, vomiting. The patient has not experienced similar symptoms in the past. The patient has not recently seen a physician. Pt reports cough for a week, fever and vomiting for a few days, diarrhea started today. Found out 's coworker is COVID positive so she came to get tested. Historical: - Allergies: 20:01 Morphine; ll1 20:01 Tylenol-Codeine #3; ll1 - PMHx: 20:01 PTSD; Diabetes - IDDM; Anxiety; Anemia; ll1 - Immunization history:: Flu vaccine is not up to date. - Social history:: Smoking status: Reported history of juuling and/or vaping. Patient/guardian denies using alcohol, street drugs. ROS: 20:55 ENT: Negative for injury, pain, and discharge, Neck: Negative for injury, pain, and kb swelling, Cardiovascular: Negative for chest pain, palpitations, and edema, Back: Negative for injury and pain, MS/Extremity: Negative for injury and deformity, Skin: Negative for injury, rash, and discoloration, Neuro: Negative for headache, weakness, numbness, tingling, and seizure. 20:55 Constitutional: Positive for body aches, fever, malaise. 20:55 Respiratory: Positive for cough, Negative for dyspnea on exertion, hemoptysis, orthopnea, pleurisy, shortness of breath, sputum production, wheezing. 20:55 Abdomen/GI: Positive for nausea, vomiting, and diarrhea, Negative for abdominal pain. Exam: 20:55 Constitutional: This is a well developed, well nourished patient who is awake, alert, kb and in no acute distress. Head/Face: Normocephalic, atraumatic. Chest/axilla: Normal chest wall appearance and motion. Nontender with no deformity. No lesions are appreciated. Cardiovascular: Regular rate and rhythm with a normal S1 and S2. No gallops, murmurs, or rubs. Normal PMI, no JVD. No pulse deficits. Respiratory: Lungs have equal breath sounds bilaterally, clear to auscultation and percussion. No rales, rhonchi or wheezes noted. No increased work of breathing, no retractions or nasal flaring. Abdomen/GI: Soft, non-tender, with normal bowel sounds. No distension or tympany. No guarding or rebound. No evidence of tenderness throughout. Skin: Warm, dry with normal turgor. Normal color with no rashes, no lesions, and no evidence of cellulitis. MS/ Extremity: Pulses equal, no cyanosis. Neurovascular intact. Full, normal range of motion. Neuro: Awake and alert, GCS 15, oriented to person, place, time, and situation. Cranial nerves II-XII grossly intact. Motor strength 5/5 in all extremities. Sensory grossly intact. Cerebellar exam normal. Normal gait. Vital Signs: 19:59 BP 138 / 74; Pulse 74; Resp 18; Temp 98.5; Pulse Ox 99% ; Pain 6/10; ll1 21:00 BP 125 / 65; Pulse 70; Resp 17; Temp 97.9; Pulse Ox 99% ; rr5 MDM: 20:03 Patient medically screened. kb 20:55 Data reviewed: vital signs, nurses notes. Data interpreted: Pulse oximetry: on room air kb is 99 %. Interpretation: normal. Counseling: I had a detailed discussion with the patient and/or guardian regarding: the historical points, exam findings, and any diagnostic results supporting the discharge/admit diagnosis, the need for outpatient follow up, a family practitioner, to return to the emergency department if symptoms worsen or persist or if there are any questions or concerns that arise at home. ED course: Pt tolerating PO intake. Vital signs stable. . 05/18 20:11 Order name: COVID-19; Complete Time: 08:47 kb 05/18 20:04 Order name: PO challenge; Complete Time: 20:38 kb Administered Medications: No medications were administered Disposition: 05/19 03:53 Co-signature as Attending Physician, Fabricio Diaz MD I agree with the assessment and 4 plan of care. Disposition: 05/18/20 20:58 Discharged to Home. Impression: Viral infection, unspecified. - Condition is Stable. - Discharge Instructions: Viral Respiratory Infection, COVID-19. - Prescriptions for Zofran 4 mg Oral Tablet - take 1 tablet by ORAL route every 6 hours As needed; 20 tablet. - Medication Reconciliation Form, Thank You Letter, Antibiotic Education, Prescription Opioid Use, Work release form form. - Follow up: Emergency Department; When: As needed; Reason: Worsening of condition. Follow up: Private Physician; When: 2 - 3 days; Reason: Recheck today's complaints, Continuance of care, Re-evaluation by your physician. Addendum: 05/21/2020 09:50 Addendum: Called twice today to notify of COVID results, no answer, left voicemail to r n call back. . 11:25 Addendum: Contacted pt at 1135, notified of positive COVID test, answered questions, r n told health department will contact them with further instructions, patient feeling better. . Signatures: Dispatcher [employer] EDBarbara Hernandez, AUTOMOBILE TAILLIGHT ASSEMBLER-C AUTOMOBILE TAILLIGHT ASSEMBLER-Ckb Saleem Gates MD MD rn Wadley, Terrence, MD MD tw4 Dawit Malin RN RN rr5 Maggie Blair RN RN ll1 Corrections: (The following items were deleted from the chart) 05/18 21:10 20:58 05/18/2020 20:58 Discharged to Home. Impression: Viral infection, unspecified. rr5 Condition is Stable. Forms are Medication Reconciliation Form, Thank You Letter, Antibiotic Education, Prescription Opioid Use. Follow up: Emergency Department; When: As needed; Reason: Worsening of condition. Follow up: Private Physician; When: 2 - 3 days; Reason: Recheck today's complaints, Continuance of care, Re-evaluation by your physician. kb
--- NOTE | 2020-05-18 20:59 | ER ---
Nurse's Notes [facility] Name: Lesly Cisneros Age: 29 yrs Sex: Female : 1990 Arrival Date: 05/18/2020 Time: 19:55 Bed 8 Private MD: Diagnosis: Viral infection, unspecified Presentation: 05/18 19:59 Chief complaint: Patient states: Cough off/on for 1 month. N/V for 3 days. Diarrhea and ll1 fever started today. Husbands co-worker tested positive for [place], she would like to be tested also. Coronavirus screen: Surgical mask placed on patient. Patient moved to private room, placed in contact and droplet isolation with eye protection until further assessment. Patient reports a cough. Patient reports shortness of breath or difficulty breathing. Patient denies measured and/or subjective temperature greater than 100.4F prior to today's visit. Patient denies travel on a cruise ship or to a country the [facility] currently lists as an affected area. Patient reports contact with known and/or suspected case of COVID-19. Ebola Screen: Patient denies travel to an Ebola-affected area in the 21 days before illness onset. Initial Sepsis Screen: Does the patient meet any 2 criteria? No. Patient's initial sepsis screen is negative. Risk Assessment: Do you want to hurt yourself or someone else? Patient reports no desire to harm self or others. Onset of symptoms was May 15, 2020. 19:59 Method Of Arrival: Ambulatory ll1 19:59 Acuity: DI 3 ll1 20:45 Initial Sepsis Screen: Does the patient have a suspected source of infection? Yes: rv Productive cough/pneumonia. Historical: - Allergies: 20:01 Morphine; ll1 20:01 Tylenol-Codeine #3; ll1 - PMHx: 20:01 PTSD; Diabetes - IDDM; Anxiety; Anemia; ll1 - Immunization history:: Flu vaccine is not up to date. - Social history:: Smoking status: Reported history of juuling and/or vaping. Patient/guardian denies using alcohol, street drugs. Screenin:44 Abuse screen: Denies threats or abuse. Denies injuries from another. Nutritional rv screening: No deficits noted. Tuberculosis screening: No symptoms or risk factors identified. Fall Risk None identified. Assessment: 20:30 General: Appears comfortable, Behavior is calm, cooperative. rv 20:30 Pain: Denies pain. Neuro: Level of Consciousness is awake, alert, obeys commands, rv Oriented to person, place, time, situation. Cardiovascular: Patient's skin is warm and dry. Respiratory: Airway is patent Respiratory effort is even, unlabored, Respiratory pattern is regular, symmetrical, Breath sounds are clear bilaterally. GI: Abdomen is round non-distended, Reports diarrhea, nausea, vomiting, since last night. Derm: Skin is intact. Musculoskeletal: Reports muscle aches. 20:45 Reassessment: patient tolerated PO challenge. rv 21:05 Reassessment: Patient appears in no apparent distress at this time. Patient is alert, rr5 oriented x 3, equal unlabored respirations, skin warm/dry/pink. discharge instruction given and explained without complaints made. Vital Signs: 19:59 BP 138 / 74; Pulse 74; Resp 18; Temp 98.5; Pulse Ox 99% ; Pain 6/10; ll1 21:00 BP 125 / 65; Pulse 70; Resp 17; Temp 97.9; Pulse Ox 99% ; rr5 ED Course: 19:55 Patient arrived in ED. cl3 19:56 Barbara Hoover FNP-C is [facility]. kb 19:56 Fabricio Diaz MD is Attending Physician. kb 20:01 Triage completed. ll1 20:01 Arm band placed on Patient placed in an exam room, on a stretcher. ll1 20:02 Caleb Judd, RN is Primary Nurse. rv 20:44 Patient has correct armband on for positive identification. Pulse ox on. NIBP on. rv 20:44 No provider procedures requiring assistance completed. Patient did not have IV access rv during this emergency room visit. 05/19 14:48 Health Dept notified/ PUI # [id number] / Meryl from lab notified. eb Administered Medications: No medications were administered Outcome: 05/18 20:58 Discharge ordered by . kb 21:09 Discharged to home ambulatory. rr5 21:09 Condition: stable 21:09 Discharge instructions given to patient, Instructed on discharge instructions, follow up and referral plans. medication usage, Demonstrated understanding of instructions, follow-up care, medications, Prescriptions given X 1. 21:10 Patient left the ED. rr5 Addendum: 05/21/2020 08:49 Addendum: Other Dr. Gates attempted to contact pt regarding COVID-19 swab results. d m5 09:17 Addendum: Other Dr. Gates attempted to contact pt regarding COVID-19 swab results. d m5 11:26 Addendum: Other Dr. Gates spoke with patient regarding positve COVID-19 swab results. d m5 Signatures: Barbara Hoover, CABLE TELEVISION LINE TECHNICIAN-C CABLE TELEVISION LINE TECHNICIAN-Leanne Jama, RN RN dm5 Elvi Caal Ronaldo, RN RN rv Dawit Malin, RN RN rr5 Minda Blair cl3 Maggie Blair RN RN ll1
[2020-05-18 21:15] VITALS: BP 138/74; TEMP 98.5; O2SAT 99
== END 2020-05-18 21:10 | disposition home or self-care (01) ==
LOC: ER 19:53
DX: U07.1 COVID-19 (principal); B34.9 Viral infection, unspecified; Z88.5 Allergy status to narcotic agent
CPT/HCPCS: 99283; U0001

== ENCOUNTER 2020-06-18 17:09 | Emergency (ER) | payer SELFPAY, OTHER ==
--- OUTSIDE RECORDS SUMMARY | 2020-06-18 17:12 | XMS REPORT | Continuity of Care Document ---
:1990 Author Organization [facility] t Address [address] [place] [address] Care Team Providers Name Role Phone Marcia [...] Department ID 2017-12-02 2017-12-02 Emergency E BIJAN [facility] [id number] [facility] 11:36:00 12:06:00 [facility] Results This patient has no known results.
--- NOTE | 2020-06-18 17:42 | EDPHYS ---
Physician Documentation [facility] Name: Lesly Cisneros Age: 29 yrs Sex: Female : 1990 Arrival Date: 06/18/2020 Time: 17:11 Bed 15 Private MD: ED Physician Carlos Ewing HPI: 06/18 17:39 This 29 yrs old Female presents to ER via Ambulatory with complaints of jmm Breathing Difficulty, COVID +. 17:39 The patient has shortness of breath with light activity. Onset: The symptoms/episode jmm began/occurred gradually, 1 month(s) ago. Duration: The symptoms are continuous. The patient's shortness of breath is aggravated by light activity. Associated signs and symptoms: Pertinent positives: non-productive cough, fever. This is a 29 year old female with a history of anemia, DM, that presents to the ED with complaints of cough, fever, shortness of breath. Diagnosed with COVID -19 approx 1 month ago. Patient concerned due to ongoing symptoms. . 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 - Social history:: Smoking status: Reported history of juuling and/or vaping. ROS: 17:39 Abdomen/GI: Negative for abdominal pain, nausea, vomiting, diarrhea, and constipation. jmm 17:39 Constitutional: Positive for fever. 17:39 Respiratory: Positive for cough, shortness of breath. 17:39 All other systems are negative. Exam: 17:39 Constitutional: This is a well developed, well nourished patient who is awake, alert, jmm and in no acute distress. Head/Face: atraumatic. Eyes: EOMI, no conjunctival erythema appreciated ENT: Moist Mucus Membranes Neck: Trachea midline, Supple Chest/axilla: Normal chest wall appearance and motion. Cardiovascular: Regular rate and rhythm. No edema appreciated Respiratory: Normal respirations, no respiratory distress appreciated Abdomen/GI: Non distended, soft Back: Normal ROM Skin: General appearance color normal MS/ Extremity: Moves all extremities, no obvious deformities appreciated, no edema noted to the lower extremities Neuro: Awake and alert, normal gait Psych: Behavior is normal, Mood is normal, Patient is cooperative and pleasant Vital Signs: 17:18 BP 138 / 83; Pulse 88; Resp 16; Temp 98.2; Pulse Ox 99% on R/A; Weight 113.4 kg; Height hb 5 ft. 9 in. (175.26 cm); Pain 5/10; 17:39 Pulse 67; Resp 18; Pulse Ox 98% on R/A; ks7 17:18 Body Mass Index 36.92 (113.40 kg, 175.26 cm) hb MDM: 17:29 Patient medically screened. [facility] 17:39 Data reviewed: vital signs, nurses notes. Counseling: I had a detailed discussion with dominique the patient and/or guardian regarding: the historical points, exam findings, and any diagnostic results supporting the discharge/admit diagnosis, the need for outpatient follow up, to return to the emergency department if symptoms worsen or persist or if there are any questions or concerns that arise at home. ED course: Patient is alert and non toxic in appearance in the ED. SaO2 99%. VS WNL. Patient is given strict return precautions. Patient understood and agrees with the plan of care. . Administered Medications: 17:47 Drug: Decadron 10 mg Route: IM; Site: left deltoid; ca1 17:53 Follow up: Response: No adverse reaction ca1 Disposition: 06/19 05:34 Co-signature as Attending Physician, Carlos Ewing MD I agree with the assessment and isabel plan of care. Disposition: 06/18/20 17:41 Discharged to Home. Impression: Acute upper respiratory infection, unspecified. - Condition is Stable. - Discharge Instructions: COVID-19. - Medication Reconciliation Form, Thank You Letter, Antibiotic Education, Prescription Opioid Use form. - Follow up: Private Physician; When: 2 - 3 days; Reason: Recheck today's complaints, Continuance of care, Re-evaluation by your physician. - Notes: Please take 2500 IU of Vitamin D, 15 to 40 mg of zinc daily. Please return to the ED if you develop worsening symptoms. Signatures: Carlos Ewing MD MD cha Mickail, Joel, PA PA Erin Baptiste RN RN AcobAlice RN RN ca1 Corrections: (The following items were deleted from the chart) 06/18 17:53 17:41 06/18/2020 17:41 Discharged to Home. Impression: Acute upper respiratory ca1 infection, unspecified. Condition is Stable. Forms are Medication Reconciliation Form, Thank You Letter, Antibiotic Education, Prescription Opioid Use. Follow up: Private Physician; When: 2 - 3 days; Reason: Recheck today's complaints, Continuance of care, Re-evaluation by your physician. dominique
--- NOTE | 2020-06-18 17:42 | ER ---
Nurse's Notes [facility] Name: Lesly Cisneros Age: 29 yrs Sex: Female : 1990 Arrival Date: 06/18/2020 Time: 17:11 Bed 15 Private MD: Diagnosis: Acute upper respiratory infection, unspecified Presentation: 06/18 17:18 Chief complaint: Tested COVID + in April, still reports cough, SOB, N/V, fatigue, hb headache, chills, and diffuse abdominal pain. Reports worsening SOB over last few days. Coronavirus screen: Patient reports shortness of breath or difficulty breathing. Patient reports a measured and/or subjective temperature greater than 100.4F. Patient denies travel on a cruise ship or to a country [facility] currently lists as an affected area. Patient reports contact with known and/or suspected case of COVID-19. Patient instructed to continue to wear a mask when interacting with others. Patient moved to private room, placed in contact and droplet isolation with eye protection until further assessment. Ebola Screen: No symptoms or risks identified at this time. Initial Sepsis Screen: Does the patient meet any 2 criteria? No. Patient's initial sepsis screen is negative. Does the patient have a suspected source of infection? No. Patient's initial sepsis screen is negative. Risk Assessment: Do you want to hurt yourself or someone else? Patient reports no desire to harm self or others. Onset of symptoms was April 2020. 17:18 Method Of Arrival: Ambulatory hb 17:18 Acuity: DI 3 hb Triage Assessment: 17:39 General: Appears in no apparent distress. obese, Behavior is cooperative. Pain: Denies ks7 pain. Respiratory: Reports shortness of breath on exertion cough that is non-productive, Breath sounds are clear bilaterally. in left posterior upper lobe and right posterior upper lobe Breath sounds are diminished bilaterally. in left posterior lower lobe and right posterior lower lobe Onset: The symptoms/episode began/occurred 3 weeks, the patient has moderate shortness of breath. 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 - Social history:: Smoking status: Reported history of juuling and/or vaping. Screenin:42 Abuse screen: Denies threats or abuse. Denies injuries from another. Nutritional ks7 screening: No deficits noted. Tuberculosis screening: No symptoms or risk factors identified. Fall Risk None identified. Assessment: 17:42 Cardiovascular: Rhythm is regular. Respiratory: Airway is patent Respiratory effort is ks7 unlabored, shallow. Vital Signs: 17:18 BP 138 / 83; Pulse 88; Resp 16; Temp 98.2; Pulse Ox 99% on R/A; Weight 113.4 kg; Height hb 5 ft. 9 in. (175.26 cm); Pain 5/10; 17:39 Pulse 67; Resp 18; Pulse Ox 98% on R/A; ks7 17:18 Body Mass Index 36.92 (113.40 kg, 175.26 cm) hb ED Course: 17:11 Patient arrived in ED. ag5 17:20 Triage completed. hb 17:21 Arm band placed on. hb 17:22 Alice Terry, RN is Primary Nurse. ca1 17:23 Seb Hernandez PA is PHCP. [facility] 17:23 Carlos Ewing MD is Attending Physician. [facility] 17:42 Patient has correct armband on for positive identification. Bed in low position. Call ks7 light in reach. Side rails up X 1. 17:42 No provider procedures requiring assistance completed. Patient did not have IV access ks7 during this emergency room visit. Administered Medications: 17:47 Drug: Decadron 10 mg Route: IM; Site: left deltoid; ca1 17:53 Follow up: Response: No adverse reaction ca1 Outcome: 17:41 Discharge ordered by . [facility] 17:48 Discharged to home ambulatory. ca1 17:48 Condition: stable 17:48 Discharge instructions given to patient, Instructed on discharge instructions, follow up and referral plans. Demonstrated understanding of instructions, follow-up care. 17:53 Patient left the ED. ca1 Signatures: Seb Hernandez PA PA jmm Baxter, Heather, RN RN Alice Terry RN RN ca1 Greg Cooney ag5 Malina Michaud RN RN ks7
[2020-06-18] MEDS ORDERED: dexAMETHasone 10 MG/ML VIAL ONE (17:55)
[2020-06-18 17:57] VITALS: BP 138/83; TEMP 98.2
[2020-06-18 17:58] VITALS: O2SAT 98
== END 2020-06-18 17:53 | disposition home or self-care (01) ==
LOC: ER 17:09
DX: J06.9 Acute upper respiratory infection, unspecified (principal); Z88.5 Allergy status to narcotic agent; Z88.6 Allergy status to analgesic agent; Z72.0 Tobacco use
CPT/HCPCS: 96372; 99283; J1100

== ENCOUNTER 2021-03-17 23:23 | Emergency (ER) | payer OTHER, SELFPAY ==
--- OUTSIDE RECORDS SUMMARY | 2021-03-17 23:25 | XMS REPORT | Continuity of Care Document ---
:1990 Author Organization [facility] t Address [address] [place] [address] Care Team Providers Name Role Phone Brook Patricia MD Attending Clinician Doctor Unassigned, Name Attending Clinician Unavailable BIJAN, Marcia Attending Clinician Unavailable Marcia THAKKAR Admitting Clinician Unavailable Problems This patient has no known problems. Allergies, Adverse Reactions, Alerts This patient has no known allergies or adverse reactions. Medications This patient has no known medications. Procedures This patient has no known procedures. Encounters Start End Encounter Admission Attending Care Care Encounter Source Date/Time Date/Time Type Type Clinicians Facility Department ID 2021-03-02 2021-03-02 [facility] Delilah Patricia [facility] [id number] 09:00:00 23:59:00 Encounter Brook Waller [id number] [place] [id number] [place] [id number] 2021-03-02 2021-03-02 Orders Doctor ASTUDILLO [id number] 00:00:00 00:00:00 Only UnassignedCEDRIC [id number] Young [facility] [id number] 2018-07-01 2018-07-01 [id number] Access 00:00:00 00:00:00 H, PROVIDER Ryan alaniz 2018-04-02 2018-04-02 [facility] [id number] Access 00:00:00 00:00:00 H, PROVIDER Ryan alaniz 2018-04-01 2018-04-01 [facility] [id number] Access 00:00:00 00:00:00 H, PROVIDER Ryan alaniz 2017-12-02 2017-12-02 Emergency E BIJAN [facility] [id number] [facility] 11:36:00 12:06:00 [facility] Results This patient has no known results.
[2021-03-18 02:29] LABS: ALT/SGPT 18 U/L (12-78); AST/SGOT 9 U/L (15-37); Albumin 3.6 g/dL (3.4-5.0); Alkaline Phosphatase 80 U/L (45-117); BUN Blood Urea Nitrogen 18 mg/dL (7-18); Bicarbonate 29 mmol/L (21-32); Bilirubin Direct < 0.1 mg/dL (0-0.2); Bilirubin Total 0.3 mg/dL (0.2-1.0); Glucose Level 90 mg/dL (74-106); Lipase 118 U/L (73-393); Potassium 3.7 mmol/L (3.5-5.1); Protein, Total 7.7 g/dL (6.4-8.2); Sodium Level 143 mmol/L (136-145)
[2021-03-18 02:41] LABS: Absolute Lymphocytes (CBC) 2.4 K/uL (0.7-4.9); Basophils % 0.9 % (0-1.3); Hematocrit 35.6 % (36.0-45.0); Lymphocytes % 36.4 % (15.3-44.8); MPV 7.6 fL (7.6-11.3); RBC Red Blood Cell Count 4.93 M/uL (3.86-4.86)
[2021-03-18 04:21] LABS: Urine Blood 1+ (Negative); Urine Glucose Negative (Negative); Urine Protein Negative (Negative); Urine Specific Gravity >=1.030 (1.005-1.030)
[2021-03-18 04:24] LABS: Urine Specific Gravity/Preg >1.030 (1.005-1.030)
--- NOTE | 2021-03-18 06:32 | EDPHYS ---
Physician Documentation [facility] Name: Lesly Cisneros Age: 30 yrs Sex: Female : 1990 Arrival Date: 03/17/2021 Time: : Bed 5 Private MD: ED Physician Sushil Talamantes HPI: 03/18 04:42 This 30 yrs old Female presents to ER via Ambulatory with complaints of Rectal mh7 Bleeding. 04:42 The patient presents with abdominal pain that is diffuse. Onset: The symptoms/episode mh7 began/occurred 2 day(s) ago. The symptoms do not radiate. Associated signs and symptoms: Pertinent positives: blood in stools. 04:43 Associated signs and symptoms: Pertinent negatives: nausea, vomiting, and diarrhea, mh7 nausea and vomiting, anorexia, chest pain, constipation, diarrhea, dysuria, fever, headache, hematuria, nausea, palpitations, shortness of breath, vaginal discharge, vomiting, vomiting blood. The symptoms are described as intermittent, vague, waxing/waning. Modifying factors: The symptoms are alleviated by nothing, the symptoms are aggravated by nothing. Severity of pain: At its worst the pain was moderate 2 day(s) ago, in the emergency department the pain has improved markedly. The patient has experienced similar episodes in the past, multiple times. 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 - Social history:: Smoking status: Reported history of juuling and/or vaping. ROS: 04:43 Constitutional: Negative for fever, chills, and weight loss, Eyes: Negative for injury, mh7 pain, redness, and discharge, ENT: Negative for injury, pain, and discharge, Neck: Negative for injury, pain, and swelling, Cardiovascular: Negative for chest pain, palpitations, and edema, Respiratory: Negative for shortness of breath, cough, wheezing, and pleuritic chest pain, Back: Negative for injury and pain, : Negative for injury, bleeding, discharge, and swelling, MS/Extremity: Negative for injury and deformity, Skin: Negative for injury, rash, and discoloration, Neuro: Negative for headache, weakness, numbness, tingling, and seizure, Psych: Negative for depression, anxiety, suicide ideation, homicidal ideation, and hallucinations, Allergy/Immunology: Negative for hives, rash, and allergies, Endocrine: Negative for neck swelling, polydipsia, polyuria, polyphagia, and marked weight changes, Hematologic/Lymphatic: Negative for swollen nodes, abnormal bleeding, and unusual bruising. Exam: 04:43 Constitutional: This is a well developed, well nourished patient who is awake, alert, mh7 and in no acute distress. Head/Face: Normocephalic, atraumatic. Eyes: Pupils equal round and reactive to light, extra-ocular motions intact. Lids and lashes normal. Conjunctiva and sclera are non-icteric and not injected. Cornea within normal limits. Periorbital areas with no swelling, redness, or edema. Neck: Trachea midline, no thyromegaly or masses palpated, and no cervical lymphadenopathy. Supple, full range of motion without nuchal rigidity, or vertebral point tenderness. No Meningismus. Chest/axilla: Normal chest wall appearance and motion. Nontender with no deformity. No lesions are appreciated. Cardiovascular: Regular rate and rhythm with a normal S1 and S2. No gallops, murmurs, or rubs. Normal PMI, no JVD. No pulse deficits. Respiratory: Lungs have equal breath sounds bilaterally, clear to auscultation and percussion. No rales, rhonchi or wheezes noted. No increased work of breathing, no retractions or nasal flaring. 04:43 Back: No spinal tenderness. No costovertebral tenderness. Full range of motion. Skin: Warm, dry with normal turgor. Normal color with no rashes, no lesions, and no evidence of cellulitis. MS/ Extremity: Pulses equal, no cyanosis. Neurovascular intact. Full, normal range of motion. Neuro: Awake and alert, GCS 15, oriented to person, place, time, and situation. Cranial nerves II-XII grossly intact. Motor strength 5/5 in all extremities. Sensory grossly intact. Cerebellar exam normal. Normal gait. Psych: Awake, alert, with orientation to person, place and time. Behavior, mood, and affect are within normal limits. 04:43 Abdomen/GI: Inspection: obese Bowel sounds: normal, in all quadrants, Palpation: moderate abdominal tenderness, in all quadrants, mass, is not appreciated, rebound tenderness, is not appreciated, voluntary guarding, is not appreciated, involuntary guarding, is not appreciated, no appreciated organomegaly, Rectal exam: rectal tone normal, Stool: brown, guaiac negative, hemorrhoid(s), are not appreciated, mass, is not appreciated, swelling, is not appreciated, tenderness, is not appreciated, fecal impaction, is not appreciated, the exam is chaperoned by the nurse, Indicators: McBurney's point is not tender, Paz's sign is negative, Rovsing's sign is negative, Obturator sign is negative, Psoas sign is negative, Liver: no appreciated palpable abnormalities, Hernia: not appreciated. Vital Signs: 00:01 BP 138 / 84; Pulse 65; Resp 16 S; Temp 98.6(O); Pulse Ox 99% on R/A; Weight 113.85 kg bb (R); Height 5 ft. 9 in. (175.26 cm) (R); Pain 0/10; 02:02 BP 104 / 70; Pulse 72; Resp 18; Pulse Ox 99% on R/A; wh 03:16 BP 111 / 73; Pulse 70; Resp 18; Pulse Ox 98% on R/A; mg2 06:00 BP 116 / 74; Pulse 70; Resp 18; Pulse Ox 99% on R/A; wh 00:01 Body Mass Index 37.07 (113.85 kg, 175.26 cm) bb MDM: 06:28 Differential diagnosis: bowel obstruction, diverticulitis, gastroesophageal reflux mh7 disease, GI Bleed, non-specific abd pain, Ureterolithiasis, urinary tract infection. Data reviewed: vital signs, nurses notes, lab test result(s), CBC, electrolytes, urinalysis, radiologic studies, CT scan. Data interpreted: Pulse oximetry: on room air is 98 %. Interpretation: normal. 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 Response to treatment: the patient's symptoms have markedly improved after treatment. 06:31 Patient medically screened. [facility] 03/18 01:51 Order name: Basic Metabolic Panel 03/18 01:51 Order name: CBC with Diff 03/18 01:51 Order name: Hepatic Function 03/18 01:51 Order name: Lipase 03/18 01:52 Order name: Basic Metabolic Panel; Complete Time: 03:32 EDND 03/18 01:52 Order name: CBC with Automated Diff; Complete Time: 03:32 EDND 03/18 01:51 Order name: IV Saline Lock; Complete Time: 02:02 03/18 01:51 Order name: Labs collected and sent; Complete Time: 02:02 03/18 01:52 Order name: Liver (Hepatic) Function; Complete Time: 03:32 EDND 03/18 01:52 Order name: Lipase; Complete Time: 03:32 EDND 03/18 04:08 Order name: CT Abd/Pelvis - IV Contrast Only [facility] 03/18 04:20 Order name: Urine Dipstick-Ancillary; Complete Time: 05:46 EDND 03/18 04:22 Order name: Urine --Ancillary (enter results) [facility] 03/18 04:22 Order name: Urine --Ancillary; Complete Time: 05:46 EDND 03/18 04:06 Order name: Urine Dipstick-Ancillary (obtain specimen); Complete Time: 04:20 [facility] 03/18 04:06 Order name: Urine Test (obtain specimen); Complete Time: 04:20 [facility] Administered Medications: No medications were administered Point of Care Testing: Guaiac: 04:20 Stool Guaiac: Positive; Stool Hemoccult Control: Pass; mg2 Disposition: 03/18/21 06:31 Discharged to Home. Impression: Generalized abdominal pain - Chronic, Rectal Bleeding. - Condition is Stable. - Discharge Instructions: Abdominal Pain, Adult, [id number]-[id number], Rectal Bleeding, Kfxi-uk-Anko. - Medication Reconciliation Form, Thank You Letter, Antibiotic Education, Prescription Opioid Use form. - Follow up: Private Physician; When: 1 - 2 days; Reason: Worsening of condition, Recheck today's complaints, Continuance of care, Re-evaluation by your physician. Follow up: Delilah Patricia MD; When: 1 - 2 days; Reason: Worsening of condition, Recheck today's complaints, Continuance of care, Re-evaluation by your physician. - Problem is new. - Symptoms have improved. Signatures: Dispatcher [employer] Josette Lezama RN RN Ricardo Mix RN RN Sushil Talamantes MD MD mh7 Corrections: (The following items were deleted from the chart) 06:46 06:31 03/18/2021 06:31 Discharged to Home. Impression: Generalized abdominal pain - wh Chronic; Rectal Bleeding. Condition is Stable. Forms are Medication Reconciliation Form, Thank You Letter, Antibiotic Education, Prescription Opioid Use. Follow up: Private Physician; When: 1 - 2 days; Reason: Worsening of condition, Recheck today's complaints, Continuance of care, Re-evaluation by your physician. Follow up: Delilah Patricia; When: 1 - 2 days; Reason: Worsening of condition, Recheck today's complaints, Continuance of care, Re-evaluation by your physician. Problem is new. Symptoms have improved. mh7
--- NOTE | 2021-03-18 06:32 | ER ---
Nurse's Notes [facility] Name: Lesly Cisneros Age: 30 yrs Sex: Female : 1990 Arrival Date: 03/17/2021 Time: 23:25 Bed 5 Private MD: Diagnosis: Generalized abdominal pain-Chronic;Rectal Bleeding Presentation: 03/18 00:01 Chief complaint: Patient states: she is having a rectal bleed since yesterday only has bb bleeding in the toilet. Coronavirus screen: At this time, the client does not indicate any symptoms associated with coronavirus-19. Ebola Screen: No symptoms or risks identified at this time. Initial Sepsis Screen: Does the patient meet any 2 criteria? No. Patient's initial sepsis screen is negative. Does the patient have a suspected source of infection? No. Patient's initial sepsis screen is negative. Risk Assessment: Do you want to hurt yourself or someone else? Patient reports no desire to harm self or others. Onset of symptoms was March 16, 2021. 00:01 Method Of Arrival: Ambulatory bb 00:01 Acuity: DI 3 bb Triage Assessment: 00:03 General: Appears in no apparent distress. Behavior is calm, cooperative. Pain: Denies bb pain. Neuro: Level of Consciousness is awake, alert, obeys commands, Oriented to person, place, time, situation. Cardiovascular: No deficits noted. Respiratory: Respiratory effort is even, unlabored, Respiratory pattern is regular. GI: No signs and/or symptoms were reported involving the gastrointestinal system. Derm: Skin is pink, warm \T\ dry. Musculoskeletal: Circulation, motion, and sensation intact. 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 - Social history:: Smoking status: Reported history of juuling and/or vaping. Screenin:02 Abuse screen: Denies threats or abuse. Denies injuries from another. Nutritional wh screening: No deficits noted. Tuberculosis screening: No symptoms or risk factors identified. Fall Risk None identified. Assessment: 02:01 General: Appears in no apparent distress. Behavior is calm, cooperative, appropriate wh for age. Neuro: Level of Consciousness is awake, alert, obeys commands, Oriented to person, place, time, situation, Appropriate for age. Cardiovascular: Capillary refill < 3 seconds. Respiratory: Airway is patent Respiratory effort is even, unlabored, Respiratory pattern is regular, symmetrical. GI: Abdomen is non-distended, Reports rectal bleeding. : No signs and/or symptoms were reported regarding the genitourinary system. EENT: No signs and/or symptoms were reported regarding the EENT system. Derm: Skin is intact, is healthy with good turgor, Skin is pink, warm \T\ dry. normal. Musculoskeletal: Circulation, motion, and sensation intact. 03:39 Reassessment: Patient appears in no apparent distress at this time. No changes from previously documented assessment. Patient and/or family updated on plan of care and expected duration. Pain level reassessed. Patient is alert, oriented x 3, equal unlabored respirations, skin warm/dry/pink. 05:00 Reassessment: Patient appears in no apparent distress at this time. Patient and/or family updated on plan of care and expected duration. Pain level reassessed. Patient is alert, oriented x 3, equal unlabored respirations, skin warm/dry/pink. 06:30 Reassessment: Patient appears in no apparent distress at this time. Patient and/or family updated on plan of care and expected duration. Pain level reassessed. Patient is alert, oriented x 3, equal unlabored respirations, skin warm/dry/pink. Vital Signs: 00:01 BP 138 / 84; Pulse 65; Resp 16 S; Temp 98.6(O); Pulse Ox 99% on R/A; Weight 113.85 kg bb (R); Height 5 ft. 9 in. (175.26 cm) (R); Pain 0/10; 02:02 BP 104 / 70; Pulse 72; Resp 18; Pulse Ox 99% on R/A; wh 03:16 BP 111 / 73; Pulse 70; Resp 18; Pulse Ox 98% on R/A; mg2 06:00 BP 116 / 74; Pulse 70; Resp 18; Pulse Ox 99% on R/A; wh 00:01 Body Mass Index 37.07 (113.85 kg, 175.26 cm) bb ED Course: 03/17 23:25 Patient arrived in ED. bp1 03/18 00:03 Triage completed. bb 00:03 Arm band placed on Patient placed in waiting room, Patient notified of wait time. bb 02:00 Ricardo Sagastume, RN is Primary Nurse. 02:01 Inserted saline lock: 20 gauge in right antecubital area, using aseptic technique. Blood collected. 02:02 Patient has correct armband on for positive identification. Bed in low position. Call light in reach. Side rails up X 1. Pulse ox on. NIBP on. 02:30 Sushil Talamantes MD is Attending Physician. mh7 04:20 Served as a family practice nurse practitioner during rectal exam. mg2 04:45 CT Abd/Pelvis - IV Contrast Only In Process Unspecified. EDMS 06:30 Delilah Patricia MD is Referral Physician. [facility] 06:46 IV discontinued, intact, bleeding controlled, No redness/swelling at site. Administered Medications: No medications were administered Point of Care Testing: Guaiac: 04:20 Stool Guaiac: Positive; Stool Hemoccult Control: Pass; mg2 Outcome: 06:31 Discharge ordered by . [facility] 06:46 Discharged to home ambulatory. 06:46 Condition: stable 06:46 Discharge instructions given to patient, Instructed on discharge instructions, follow up and referral plans. POC Demonstrated understanding of instructions, follow-up care, POC 06:46 Patient left the ED. Signatures: Dispatcher [employer] EDMS Josette Kingsley RN RN bb Habalo, Winsy, RN RN Joselo Greene RN RN [facility] Sushil Talamantes MD MD [facility]
[2021-03-18 06:54] VITALS: TEMP 98.6
[2021-03-18 06:58] VITALS: BP 116/74; O2SAT 99
--- NOTE | 2021-03-18 12:06 | RAD REPORT ---
EXAM DESCRIPTION: CT - Abdomen Pelvis W Contrast - 03/18/2021 6:13 am CLINICAL HISTORY: The patient is 30 years old and is Female; rectal bleeding;Abd pain TECHNIQUE: Axial computed tomography images of the abdomen and pelvis with intravenous contrast. S agittal and coronal reformatted images were created and reviewed. This CT exam was performed using one or more of the following dose reduction techniques: automated exposure control, adjustment of t he mA and/or kV according to patient size, and/or use of iterative reconstruction technique. COMPARISON: No relevant prior studies available. FINDINGS: Lung bases: 2 cm subpleural lesion in the right lower lobe. ABDOMEN: Liver: Unremarkable. No mass. Gallbladder and bile ducts: Gallbladder is surgically absent. No ductal dilation. Pancreas: Unremarkable. No mass. No ductal dilation. Spleen: Spleen is borderline enlarged. Adrenals: Unremarkable. No mass. Kidneys and ureters: Unremarkable. No solid mass. No hydronephrosis. Stomach and bowel: Stool within the rectum. No obstruction. No mucosal thickening. PELVIS: Appendix: No findings to suggest acute appendicitis. Bladder: The bladder is decompressed. Reproductive: Unremarkable as visualized. ABDOMEN and PELVIS: Intraperitoneal space: Small amount of free fluid in the pelvis which may be physiologic. No free air. Bones/joints: No acute fracture. No dislocation. Soft tissues: Unremarkable. Vasculature: Unremarkable. No abdominal aortic aneurysm. Lymph nodes: There are scattered non-enlarged mesenteric lymph nodes. There is mild mesenteric st randing/edema. IMPRESSION: 1. 2 cm subpleural lesion in the right lower lobe. Finding is nonspecific, but the d ifferential includes infectious, inflammatory or posttraumatic, and neoplastic etiologies. 2. Gallbladder is surgically absent. 3. There are scattered non-enlarged mesenteric lymph nodes. There is mild mesenteric stranding/brunilda a. 4. Small amount of free fluid in the pelvis which may be physiologic. Electronically signed by: Gage Murrieta MD 03/18/2021 5:29 AM CDT Due to temporary technical issues with the PACS/Fluency reporting system, reports are being signed by the in house radiologists without review as a courtesy to insure prompt reporting. The interpreting radiologist is fully responsible for the content of the report
== END 2021-03-18 06:46 | disposition home or self-care (01) ==
LOC: ER 23:23
DX: R10.84 Generalized abdominal pain (principal); Z88.5 Allergy status to narcotic agent
CPT/HCPCS: 36415; 74177; 80048; 80076; 81003; 81025; 83690; 85025; 99284

== ENCOUNTER 2021-10-19 12:39 | Emergency (ER) | payer BC, OTHER, SELFPAY ==
--- OUTSIDE RECORDS SUMMARY | 2021-10-19 12:42 | XMS REPORT | Continuity of Care Document ---
:1990 Author Organization [facility] t Address [address] [place] [address] Care Team Providers Name Role Phone Joseph MEDICAL LEADER Primary Care Physician DIAMOND Attending Clinician Unavailable Only, Db Test Attending Clinician Unavailable Diamond MEDICAL LEADER Attending Clinician Brook Eldridge MD Attending Clinician Brook ELDRIDGE Attending Clinician Unavailable Doctor Unassigned, Name Attending Clinician Unavailable [facility] Attending Clinician Unavailable POLI Attending Clinician [phone] Marcia THAKKAR Attending Clinician Unavailable Marcia THAKKAR Admitting Clinician Unavailable Payers Payer Name Policy Type Policy Number Effective Date Expiration Date S [facility] - [id number] 2020 00:00:00 OUT OF STATE Problems This patient has no known problems. Allergies, Adverse Reactions, Alerts Allergy Allergy Status Severity Reaction(s) Onset Inactive Treating Comm ents Source Name Type Date Date Clinician NO KNOWN Drug Active Univers ALLERGIE Class [facility] [place] Social History Social Habit Start Date Stop Date Quantity Comments Source Exposure to SARS-CoV-2 Not sure [facility] [place] [facility] [place] Sex Assigned At Female [facility] Smoking Status Start Date Stop Date Source Unknown if ever smoked Access He alth Medications Ordered Filled Start Stop Current Ordering Indication Dosage Frequency Signature Comments Components Source Medication Medication Date Date Medication? Clinician (SIG) Name Name barium 2020- No [id number] 680g 680 g, Univ ers sulfate 4-09 04-09 Oral, ity of (LIQUID E-Z 20:30: 16:15 ONCE, 1 Te sisi OLIVERA) 60 % 00 :00 dose, Fri Med ical (w/v) oral 03/02/21 at [facility] suspension 1530, 680 g Routine ferrous No take 1 Access sulfate 325 5-10 tablet Health mg (65 mg 00:00: (325 mg) iron) 00 by oral tablet route once daily diclofenac No take 1 Acces s sodium 50 5-09 tablet by Healt h mg 00:00: Oral route tablet,jenaro 00 1 time per yed release day PRN pain fluoxetine No take 1 Acces s 20 mg -09 capsule by Health capsule 00:00: Oral route 00 1 time per day Vital Signs Vital Name Observation Time Observation Value Comments Source Body height 2018-04-01 13:06:00 66.00 [in_us] [facility] Patient Body Weight 2018-04-01 13:06:00 259.40 [lb_av] [facility] Systolic 2018-04-01 13:06:00 121 mm[Hg] [facility] Diastolic 2018-04-01 13:06:00 53 mm[Hg] [facility] Heart Beat 2018-04-01 13:06:00 72 /min [facility] ealt Body Temperature 2018-04-01 13:06:00 98.60 [degF] [facility] Respiratory Rate 2018-04-01 13:06:00 18 /min [facility] Body mass index 2018-04-01 13:06:00 41.90 kg/m2 [facility] [place] [facility] Procedures Procedure Date / Time Performed Performing Clinician Laura HAWIKNS SMALL BOWEL SERIES 2021-03-02 20:22:35 Delilah Eldridge [facility] ASSIGNMENT OF BENEFITS 2021-03-02 14:58:10 Doctor Unassigned, No [facility] Encounters Start End Encounter Admission Attending Care Care Encounter Source Date/Time Date/Time Type Type Clinicians Facility Department ID 2021-07-28 2021-07-28 Outpatient [facility] [id number] Univers 15:25:00 15:25:00 [id number] [facility] 2021-07-28 2021-07-28 Outpatient R DIAMOND [facility] [id number] Univers 15:25:00 15:25:00 NAZ ity o f [facility] 2021-07-28 2021-07-28 Laboratory Only, Ang Db Test [facility] [id number] Univers 15:09:49 15:24:49 Only Naz Brito [facility] [id number] ity of [place] [id number] Lanre as Asif?Blea [id number] [address] [facility] 2021-03-02 2021-03-02 [facility] [id number] 09:00:00 23:59:00 Encounter M [place] [id number] [place] [id number] [place] [id number] 2021-03-02 2021-03-02 [facility] [id number] Univers 09:00:00 23:59:00 Encounter M [place] [id number] ity of [place] [id number] [facility] [address] [place] 2021-03-02 2021-03-02 Outpatient R [facility] [id number] Univers 00:00:00 00:00:00 ity of [facility] 2021-03-02 2021-03-02 Orders Doctor ASTUDILLO [id number] 00:00:00 00:00:00 Only Unassigned, CEDRIC [id number] [place] [facility] [id number] [id number] 2021-03-02 2021-03-02 Orders Doctor BAUDILIO [id number] Univers 00:00:00 00:00:00 Only Unassigned, CEDRIC [id number] ity of [place] [facility] 4.2.7.2.686 [place] as [id number] [facility] [address] [place] 2018-07-01 2018-07-01 Outpatient [facility] [id number] Access 00:00:00 00:00:00 H, PROVIDER Ryan alaniz 2018-07-01 2018-07-01 Outpatient [facility] [id number] Access 00:00:00 00:00:00 H, PROVIDER juan [id number] Health [id number] 2018-04-02 2018-04-02 Outpatient [facility] [id number] Access 00:00:00 00:00:00 H, PROVIDER Ryan alaniz 2018-04-02 2018-04-02 Outpatient [facility] [id number] Access 00:00:00 00:00:00 H, PROVIDER juan [id number] Health [id number] 2018-04-02 2018-04-02 Outpatient SARITA ASHTON [facility] [id number] Access 00:00:00 00:00:00 [id number] 2018-04-02 2018-04-02 Outpatient SARITA ASHTON [facility] [id number] Access 00:00:00 00:00:00 [id number] Health [id number] 2018-04-01 Outpatient [facility] [id number] Access 00:00:00 00:00:00 H, PROVIDER Ryan alaniz 2018-04-01 2018-04-01 Outpatient SARITA ASHTON [facility] [id number] Access 00:00:00 00:00:00 [id number] Health [id number] 2018-04-01 2018-04-01 Outpatient [facility] [id number] Access 00:00:00 00:00:00 H, PROVIDER [id number] [facility] [id number] 2017-12-02 2017-12-02 Emergency E BIJAN, [facility] [id number] [facility] 11:36:00 12:06:00 [facility] Results Test Description Test Time Test Results Result Source Comments Comments [place] SMALL BOWEL Unremarkable small U niversity of SERIES 9 [facility]ell [facility] 20:43:42 follow-through.FL Branch SMALL BOWEL SERIES HISTORY: 30 years-old woman with diarrhea, unspecified type COMPARISON: None available TECHNIQUE AND FINDINGS: The office support associate image of the abdomen demonstrates moderate stool burden withinascending and transverse colon. Cholecystectomy clips in the right upperquadrant. Barium was administered for the patient to ingest. Fluoroscopy and serialfilms were obtained as the barium traversed the small bowel into the cecumand ascending colon. Normal transition time at about 4 hours. No mucosal orfunctional abnormalities were observed. No dilatation or stricture. [facility], Radiant Results Inft - 03/02/2021 3:44 PM CDTFL SMALL BOWEL SERIESHISTORY: 30 years-old woman with diarrhea, unspecified type COMPARISON: None availableTECHNIQUE AND FINDINGS:The office support associate image of the abdomen demonstrates moderate stool burden withinascending and transverse colon. Cholecystectomy clips in the right upperquadrant.Barium was administered for the patient to ingest. Fluoroscopy and serialfilms were obtained as the barium traversed the small bowel into the cecumand ascending colon. Normal transition time at about 4 hours. No mucosal orfunctional abnormalities were observed. No dilatation or stricture.IMPRESSIONUn remarkable small bowell follow-through.
[2021-10-19 13:39] LABS: Urine Blood Negative (Negative); Urine Glucose Negative (Negative); Urine Protein Negative (Negative); Urine Specific Gravity 1.025 (1.005-1.030)
[2021-10-19 14:24] LABS: Urine Specific Gravity/Preg 1.025 (1.005-1.030)
[2021-10-19] MEDS ORDERED: ONDANSETRON 4 MG/2 ML VIAL ONE (15:40)
[2021-10-19] MEDS ORDERED: KETOROLAC 30 MG/ML INJ ONE (15:40)
[2021-10-19] MEDS ORDERED: NA CHLORIDE 0.9% 1,000 ML ONE (15:40)
[2021-10-19 16:03] LABS: Basophils % 0.6 % (0-1.3); Hematocrit 35.6 % (36.0-45.0); Lymphocytes % 24.9 % (15.3-44.8); MPV 7.3 fL (7.6-11.3); RBC Red Blood Cell Count 4.94 M/uL (3.86-4.86)
--- NOTE | 2021-10-19 16:12 | RAD REPORT ---
EXAM DESCRIPTION: CT - Abdomen Pelvis W Contrast - 10/19/2021 3:53 pm CLINICAL HISTORY: Abdominal pain COMPARISON: February 2021 TECHNIQUE: Computed axial tomography of the abdomen pelvis was obtained. 100 cc Isovue-300 was admin istered intravenously. Oral contrast was not requested which limits evaluation of bowel. All CT scans are performed using dose optimization technique as appropriate and may include automated exposure control or mA/KV adjustment according to patient size. FINDINGS: Cholecystectomy. The liver, spleen, pancreas, adrenal and kidneys appear unremarkable. There is no evidence of diverticulitis. A normal appendix Tiny umbilical hernia IMPRESSION: No acute abnormality is displayed.
[2021-10-19 16:24] LABS: ALT/SGPT 21 U/L (12-78); AST/SGOT 9 U/L (15-37); Albumin 3.3 g/dL (3.4-5.0); Alkaline Phosphatase 80 U/L (45-117); BUN Blood Urea Nitrogen 15 mg/dL (7-18); Bicarbonate 26 mmol/L (21-32); Bilirubin Direct < 0.1 mg/dL (0-0.2); Bilirubin Total 0.2 mg/dL (0.2-1.0); Glucose Level 97 mg/dL (74-106); Lipase 128 U/L (73-393); Potassium 4.3 mmol/L (3.5-5.1); Protein, Total 7.7 g/dL (6.4-8.2); Sodium Level 141 mmol/L (136-145); Troponin (Emerg Dept Use Only) < 0.02 ng/mL (0.0-0.045)
--- NOTE | 2021-10-19 17:13 | ER ---
Nurse's Notes [facility] Name: Lesly Cisneros Age: 30 yrs Sex: Female : 1990 Arrival Date: 10/19/2021 Time: 12:40 Bed 17 Private MD: Diagnosis: Upper abdominal pain, unspecified Presentation: 10/19 13:18 Chief complaint: Patient states: abd pain that began yesterday. Pt states that abd pain ss comes and goes and on the way up here her chest started to hurt. Coronavirus screen: Client denies travel out of the [place] in the last 14 days. Ebola Screen: Patient denies exposure to infectious person. Patient denies travel to an Ebola-affected area in the 21 days before illness onset. Initial Sepsis Screen: Does the patient meet any 2 criteria? No. Patient's initial sepsis screen is negative. Does the patient have a suspected source of infection? No. Patient's initial sepsis screen is negative. Risk Assessment: Do you want to hurt yourself or someone else? Patient reports no desire to harm self or others. Onset of symptoms was October 18, 2021. 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 - Social history:: Smoking status: Patient denies any tobacco usage or history of. Assessment: 13:24 Reassessment: EKG reviewed by AMAN Block during triage. Vital Signs: 13:18 BP 127 / 82; Pulse 67; Resp 15; Temp 97.1(TE); Pulse Ox 96% on R/A; Weight 113.4 kg; ss Height 5 ft. 9 in. (175.26 cm); Pain 8/10; 16:54 BP 105 / 58; Pulse 66; Resp 16; Pulse Ox 99% on R/A; mh5 13:18 Body Mass Index 36.92 (113.40 kg, 175.26 cm) ED Course: 12:40 Patient arrived in ED. 5 13:20 Triage completed. ss 13:20 Arm band placed on right wrist. ss 14:42 [facility] Hoover [facility]-C [facility]. kb 14:43 Victor Manuel Cochran MD is Attending Physician. kb 15:28 EKG done, by ED staff, reviewed by Victor Manuel Cochran MD. 5 15:53 CT Abd/Pelvis - IV Contrast Only In Process Unspecified. EDMS 16:55 Patient has correct armband on for positive identification. Bed in low position. Call [facility] light in reach. Side rails up X 1. Pulse ox on. NIBP on. Administered Medications: 13:18 CANCELLED (Inappropriate at this time): Ondansetron 4 mg PO once ss 15:47 Drug: NS 0.9% 1000 ml Route: IV; Rate: 1000 ml; Site: right antecubital; kb 15:47 Drug: Zofran (Ondansetron) 4 mg Route: IVP; Site: right antecubital; kb 15:47 Drug: Ketorolac 30 mg Route: IVP; Site: right antecubital; kb Outcome: 17:13 Discharge ordered by . kb 17:21 Patient left the ED. kb Signatures: Dispatcher [employer] EDMS Barbara Hoover FNP-C FNP-Ckb Smirch, Shelby, RN RN Zulema Bolivar [facility] Germaine Castro [facility]
--- NOTE | 2021-10-19 17:13 | EDPHYS ---
Physician Documentation [facility] Name: Lesly Cisneros Age: 30 yrs Sex: Female : 1990 Arrival Date: 10/19/2021 Time: 12:40 Bed 17 Private MD: ED Physician Victor Manuel Cochran HPI: 10/19 20:43 This 30 yrs old Female presents to ER via Ambulatory with complaints of Chest kb Pain, Abdominal Pain. 20:43 The patient presents with abdominal pain in the left upper quadrant. Onset: The kb symptoms/episode began/occurred this morning. The symptoms radiate to chest. Associated signs and symptoms: Pertinent positives: nausea, Pertinent negatives: fever, vomiting. The symptoms are described as constant. Modifying factors: The symptoms are alleviated by nothing, the symptoms are aggravated by nothing. Severity of pain: At its worst the pain was moderate in the emergency department the pain is unchanged. The patient has not experienced similar symptoms in the past. The patient has not recently seen a physician. 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 - Social history:: Smoking status: Patient denies any tobacco usage or history of. ROS: 20:43 Constitutional: Negative for fever, chills, and weight loss. kb 20:43 Abdomen/GI: Positive for abdominal pain, nausea, Negative for vomiting, diarrhea. 20:43 All other systems are negative. Exam: 20:43 Constitutional: This is a well developed, well nourished patient who is awake, alert, kb and in no acute distress. Head/Face: Normocephalic, atraumatic. ENT: Moist Mucous membranes Cardiovascular: Regular rate and rhythm with a normal S1 and S2. No gallops, murmurs, or rubs. No pulse deficits. Respiratory: Respirations even and unlabored. No increased work of breathing, no retractions or nasal flaring. Skin: Warm, dry with normal turgor. Normal color. MS/ Extremity: Pulses equal, no cyanosis. Neurovascular intact. Full, normal range of motion. Neuro: Awake and alert, GCS 15, oriented to person, place, time, and situation. Moves all extremities. Normal gait. Psych: Awake, alert, with orientation to person, place and time. Behavior, mood, and affect are within normal limits. 20:43 Abdomen/GI: Inspection: abdomen appears normal, Bowel sounds: normal, in all quadrants, Palpation: soft, in all quadrants, mild abdominal tenderness, in the right upper quadrant and left upper quadrant. Vital Signs: 13:18 BP 127 / 82; Pulse 67; Resp 15; Temp 97.1(TE); Pulse Ox 96% on R/A; Weight 113.4 kg; ss Height 5 ft. 9 in. (175.26 cm); Pain 8/10; 16:54 BP 105 / 58; Pulse 66; Resp 16; Pulse Ox 99% on R/A; mh5 13:18 Body Mass Index 36.92 (113.40 kg, 175.26 cm) ss MDM: 15:24 Patient medically screened. kb 17:13 Data reviewed: vital signs, nurses notes. Data interpreted: Pulse oximetry: on room air kb is 99 %. Interpretation: normal. Counseling: I had a detailed discussion with the patient and/or guardian regarding: the historical points, exam findings, and any diagnostic results supporting the discharge/admit diagnosis, lab results, radiology results, the need for outpatient follow up, a family practitioner, to return to the emergency department if symptoms worsen or persist or if there are any questions or concerns that arise at home. 10/19 13:39 Order name: Urine Dipstick-Ancillary; Complete Time: 14:43 EDMS 10/19 14:06 Order name: Urine --Ancillary (enter results) em1 10/19 14:06 Order name: Urine --Ancillary; Complete Time: 14:43 EDMS 10/19 15:28 Order name: Basic Metabolic Panel; Complete Time: 16:27 kb 10/19 15:28 Order name: CBC with Diff; Complete Time: 16:10 kb 10/19 15:28 Order name: Hepatic Function; Complete Time: 16:27 kb 10/19 13:20 Order name: EKG; Complete Time: 13:21 ss 10/19 15:28 Order name: Lipase; Complete Time: 16:27 kb 10/19 15:28 Order name: Troponin (emerg Dept Use Only); Complete Time: 16:27 kb 10/19 15:39 Order name: CT Abd/Pelvis - IV Contrast Only; Complete Time: 16:13 kb 10/19 13:20 Order name: EKG - Nurse/Tech; Complete Time: 13:23 ss 10/19 15:28 Order name: IV Saline Lock kb 10/19 15:28 Order name: Labs collected and sent; Complete Time: 16:55 kb Administered Medications: 13:18 CANCELLED (Inappropriate at this time): Ondansetron 4 mg PO once ss 15:47 Drug: NS 0.9% 1000 ml Route: IV; Rate: 1000 ml; Site: right antecubital; kb 15:47 Drug: Zofran (Ondansetron) 4 mg Route: IVP; Site: right antecubital; kb 15:47 Drug: Ketorolac 30 mg Route: IVP; Site: right antecubital; kb Disposition: 17:24 Co-signature as Attending Physician, Victor Manuel Cochran MD I agree with the assessment and kdr plan of care. Disposition Summary: 10/19/21 17:13 Discharge Ordered Location: Home kb Condition: Stable kb Diagnosis - Upper abdominal pain, unspecified kb Followup: kb - With: Emergency Department - When: As needed - Reason: Worsening of condition Followup: kb - With: Private Physician - When: 2 - 3 days - Reason: Recheck today's complaints, Continuance of care, Re-evaluation by your physician Discharge Instructions: - Discharge Summary Sheet kb - Abdominal Pain, Adult, [id number] kb Forms: - Medication Reconciliation Form kb - Thank You Letter kb - Antibiotic Education kb - Prescription Opioid Use kb Prescriptions: - Zofran 4 mg Oral Tablet - take 1 tablet by ORAL route every 6 hours As needed; 20 tablet; Refills: 0, kb Product Selection Permitted - dicyclomine 20 mg Oral Tablet - take 1 tablet by ORAL route 4 times per day As needed; 20 tablet; Refills: 0, kb Product Selection Permitted Signatures: Dispatcher [employer] EDBarbara Hernandez, Victor Manuel Chavez MD MD kdr Smirch, Shelby, RN RN ss Corrections: (The following items were deleted from the chart) 13:18 13:18 Ondansetron 4 mg PO once ordered. ss ss
[2021-10-19 17:32] VITALS: TEMP 97.1
[2021-10-19 17:37] VITALS: BP 105/58; O2SAT 99
== END 2021-10-19 17:21 | disposition home or self-care (01) ==
LOC: ER 12:39
DX: R10.12 Left upper quadrant pain (principal); Z88.5 Allergy status to narcotic agent; Z88.6 Allergy status to analgesic agent
CPT/HCPCS: 93005; 85025; 80048; 36415; 81025; 82565; 80076; 81003; 84484; 83690; 74177; 96375; 96374; 99284; Q9967; J7030; J2405

== ENCOUNTER 2025-01-04 16:03 | Emergency (ER) | payer OTHER ==
--- OUTSIDE RECORDS SUMMARY | 2025-01-04 16:11 | XMS REPORT | Continuity of Care Document ---
Author Name Unknown Address [address] [facility] [address] [place] [address] [facility] thconnect Address [address] [facility] [address] [place] [address] Care Team Providers Care Field Laboratory Operator Name Role Phone Pcp, Patient Does Not Have A Primary Care Physic jason KAYLI QUINTANILLA Attending Clinician Unav KAYLI Yin Attending Clinician Unav ailKayli Kaur MD Attending Clinician + MARTÍN RUIZ Attending Clinician Unav ailable Doctor Unassigned, [place] Attending Clinician U navailable Martín Christopher Attending Clinician Lab, Lcc Attending Clinician Unavailable Pob, Adc Lab Main Attending Clinician Unavailabl e [email or web address] Attending Clinician Unavaila ble RADIOLOGY Attending Clinician Unavailable Radiology Attending Clinician Unavailable NAZ FIELDS Attending Clinician Unavailabl e Only, Ang Db Test Attending Clinician Unavailabl e Naz Mayes Attending Clinician [phone] ROSALBA ELDRIDGE Attending Clinician Unavailable Rsoalba Eldridge MD Attending Clinician [facility], PROVIDER Attending Clinician Lili ASHTON, SON Attending Clinician [phone] EDWARD THAKKAR Attending Clinician Bri fine [email or web address] Admitting Clinician PAWAN Nicole Admitting Clinician ROSALBA Perkins Admitting Clinician Unavailable EDWARD THAKKAR Admitting Clinician Bri fine Payers Payer Name Policy Type Policy Number Effective Date Expirati on Date Source [facility] [id number] 2022 00:00:00 Problems Condition Name Condition Details Condition Category Status Onset Date Resolution Date Last Treatment Date Treating Clinician Comments Source Dysphagia, unspecifie d type Dysphagia, unspecifie d type Disease Active 02-12 00:00: 00 [facility] Esophagiti s Esophagiti s Disease Active 02-12 00:00: 00 [facility] Gastritis without bleeding, unspecifie d chronicity , unspecifie d gastritis type Gastritis without bleeding, unspecifie d chronicity , unspecifie d gastritis type Disease Active 02-12 00:00: 00 [facility] Erosive gastritis Erosive gastritis Disease Active 02-12 00:00: 00 [facility] Abdominal pain, epigastric Abdominal pain, epigastric Disease Active 02-12 00:00: 00 [facility] History of esophagiti s History of esophagiti s Disease Active 02-12 00:00: 00 [facility] NSAID long-term use NSAID long-term use Disease Active 12-31 00:00: 00 [facility] Diarrhea, unspecifie d type Diarrhea, unspecifie d type Disease Active 12-31 00:00: 00 [facility] Constipati on, unspecifie d constipati on type Constipati on, unspecifie d constipati on type Disease Active 12-31 00:00: 00 [facility] Generalize d abdominal pain Generalize d abdominal pain Disease Active 2- 00:00: 00 [facility] Rectal bleeding Rectal bleeding Disease Active 2- 00:00: 00 [facility] Fecal urgency Fecal urgency Disease Active 2- 00:00: 00 [facility] Oral ulcer Oral ulcer Disease Active 2- 00:00: 00 [facility] Rectal pain Rectal pain Disease Active 2- 00:00: 00 [facility] Nausea Nausea Disease Active 2 00:00: 00 [facility] NSAID long-term use NSAID long-term use Disease Active 12-31 00:00: 00 [facility] Allergies, Adverse Reactions, Alerts Allergy Name Allergy Type Status Severity Reaction(s) Onset Date Inactive Date Treating Clinician Comments Source morphine Propensi ty to adverse reaction to drug Active 2023-11 00:00: 00 [facility] Morphine and Related - CLASS Propensi ty to adverse reaction to drug Active 12-18 00:00: 00 [facility] Rankin Tylenol - Oral Propensi ty to adverse reaction to drug Active 12-16 00:00: 00 [facility] Rankin tylenol 3 (Not Checked) Propensi ty to adverse reaction to drug Inactiv e 04-12 00:00: 00 [facility] Rankin TYLENOL- CODEINE #2 DRUG Active Other-Cmnt 06-04 00:00: 00 [facility] Tylenol- Codeine #2 Propensi ty to adverse reaction s Active Other - See comments 06-04 00:00: 00 [facility] MORPHINE DRUG INGREDI Active Swelling 01-13 00:00: 00 [facility] Morphine Propensi ty to adverse reaction s Active Swelling 01-13 00:00: 00 [facility] NO KNOWN ALLERGIE S Drug Class Active [facility] Social History Social Habit Start Date Stop Date Quantity Comments Source [facility] to SARS-CoV-2 (event) Not sure [facility] Sex Assigned At Female [facility] Tobacco use and exposure 2024-02-13 00:00:00 2024-02-13 00:00:00 Smokeless tobacco non-user [facility] Alcohol intake 2024-02-13 00:00:00 2024-02-13 00:00:00 Ex-drinker (finding) [facility] History of Social function 2024-02-13 00:00:00 2024-02-13 00:00:00 [facility] Alcoholic beverage intake 2024-02-13 00:00:00 2024-02-13 00:00:00 Ex-drinker (finding) [facility] Smoking Status Start Date Stop Date Source Unknown if ever smoked [facility] Never smoked tobacco [facility] Medications Ordered Medication Name Filled Medication Name Start Date Stop Date Current Medication? Ordering Clinician Indication Dosage Frequency Signature (SIG) Comments Components Source azithromyci n 250 mg tablet 12-25 00:00: 00 Yes mg [facility] albuterol sulfate HFA 90 mcg/actuati on aerosol inhaler 12-25 00:00: 00 Yes 2mcg/ac tuation [facility] Rank[facility] Bromfed DM 2 mg-30 mg-10 mg/5 mL oral syrup 12-25 00:00: 00 Yes 10mg/5 mL Colby Dimas Chucho ondansetron (ZOFRAN-ODT ) disintegrat ing tablet 4 mg 2023-11 20:15: 00 10-10 19:51 :00 No 4mg 4 mg, Oral, ONCE, 1 dose, On 10/10/24 at 1415, Routine [facility] ondansetron 4 mg disintegrat ing tablet 2023-11 00:00: 00 Yes [id number] 4mg Take 1 tablet by mouth every 8 (eight) hours as needed for Nausea and Vomiting (N/V). [facility] metronidazo le 500 mg tablet 2023-11 0-04 00:00: 00 Yes 1mg [facility] Lidocaine Viscous 2 % mucosal solution - 00:00: 00 Yes 15% [facility] Rankin valacyclovi r 1 gram tablet 2024-0 9-07 00:00: 00 Yes 1gram [facility] Rankin naproxen 500 mg tablet - 00:00: 00 Yes 1mg [facility] Mucinex DM 30 mg-600 mg tablet,exte nded release 12 hr 07-16 00:00: 00 Yes 1mg [facility] Rankin prednisone 10 mg tablet 04-19 00:00: 00 Yes 1mg [facility] Rankin azithromyci n 250 mg tablet 04-19 00:00: 00 Yes mg [facility] Rankin vitamin D3-vitamin K2, MK4, 1,000-100 unit-mcg Tab 12-22 00:00: 00 Yes [facility] lidocaine HCl (LIDOCAINE 1 % 4.5 ML + SOD BICARB 0.5 ML) Soln injection 12-15 00:00: 00 Yes [facility] 24 MG PO ON DAY 1 THEN DECREASE BY 4 MG PER DAY PER DOSE PACK INSTRUCTION S 2022-11 00:00: 00 03-12 00:00 :00 No 4 [facility] Rankin SWISH, GARGLE, AND SPIT ONE TO TWO TEASPOONFUL S EVERY FOUR TO SIX HOURS NEEDED. SHAKE WELL BEFORE USING. 2022-11 00:00: 00 03-12 00:00 :00 No 2 [facility] LIDOCAINE VISCOUS 2% 5 ML DIRECTED Q8H SWISH AROUND IN MOUTH FOR 30 SECS AND SPIT 2022-1114 00:00: 00 03-12 00:00 :00 No 2 [facility] Rankin TAKE 1 CAPSULE 3 TIMES DAILY UNTIL GONE. 06-25 00:00: 00 03-12 00:00 :00 No 400 [facility] Rankin TAKE 1 TABLET TWICE DAILY WITH FOOD. 06-07 00:00: 00 03-12 00:00 :00 No [id number] [facility] Rankin TAKE 2 TABLETS DAILY THE FIRST 5 DAYS,THEN 1 TAB DAILY THE LAST 5 DAYS 06-07 00:00: 00 03-12 00:00 :00 No 20 [facility] Rankin APPLY SPARINGLY 4 TIMES DAY 06-07 00:00: 00 03-12 00:00 :00 No 1 Colby F Chucho APPLY SPARINGLY TO AFFECTED AREA(S) TWICE DAILY 06-07 00:00: 00 03-12 00:00 :00 No 2 Colby F Chucho TAKE 1 TABLET DAILY. 06-07 00:00: 00 03-12 00:00 :00 No 250 Colby F Chucho APPLY SPARINGLY 4 TIMES DAY 12-18 00:00: 00 03-12 00:00 :00 No 1 Colby F Chucho DISSOLVED ONE CAPSULE IN 180 ML OF WATER, RINSE WITH THIS SUSPENSION FOUR TIMES DAILY 12-18 00:00: 00 03-12 00:00 :00 No 250 Colby F Chucho TAKE 2 TABLETS DAILY. 12-07 00:00: 00 03-12 00:00 :00 No 20 Colby F Chucho TAKE 1 TABLET EVERY 12 HOURS DAILY. 12-07 00:00: 00 03-12 00:00 :00 No 875 Colby F Chucho &lt 7-05 00:00: 00 Yes Col[facility] F Chucho CYCLOBENZAP RINE HYDROCHLORI DE 10 MG TABS 7- 00:00: 00 03-12 00:00 :00 No Col[facility] F Chucho Dose Unknown 4-04 00:00: 00 Yes Col[facility] F Chucho Dose Unknown 4-04 00:00: 00 Yes Col[facility] F Chucho Dose Unknown 4-04 00:00: 00 Yes Col[facility] F Chucho Dose Unknown 0 4-04 00:00: 00 Yes Col[facility] F Chucho Dose Unknown 0 4-04 00:00: 00 Yes Col[facility] F Chucho Dose Unknown 0 4-04 00:00: 00 Yes Col[facility] F Chucho Dose Unknown 0 3-16 00:00: 00 Yes Col[facility] F Chucho Dose Unknown 0 3-16 00:00: 00 Yes Col[facility] F Chucho Dose Unknown 0 3-16 00:00: 00 Yes Col[facility] F Chucho Dose Unknown 0 3-16 00:00: 00 Yes Col[facility] F Chucho Dose Unknown 0 3-16 00:00: 00 Yes Col[facility] F Chucho Dose Unknown 2022-0 3-16 00:00: 00 Yes [facility] F Chucho Dose Unknown 2022-0 3-16 00:00: 00 Yes Col[facility] F Chucho Dose Unknown 2022-0 3-16 00:00: 00 Yes [facility] F Chucho Dose Unknown 2022-0 3-16 00:00: 00 Yes [facility] F Chucho Dose Unknown 2022-0 3-16 00:00: 00 Yes [facility] F Chucho Dose Unknown 2022-0 3-16 00:00: 00 Yes [facility] F Chucho Dose Unknown 2022-0 3-16 00:00: 00 Yes [facility] F Chucho Dose Unknown 2022-0 3-16 00:00: 00 Yes [facility] F Chucho Dose Unknown 2022-0 3-16 00:00: 00 Yes [facility] F Chucho Dose Unknown 2022-0 3-16 00:00: 00 Yes [facility] F Chucho Dose Unknown 2022-0 3-16 00:00: 00 Yes [facility] F Chucho Dose Unknown 2022-0 1-29 00:00: 00 Yes [facility] F Chucho Dose Unknown 2022-0 1-29 00:00: 00 Yes [facility] F Chucho Dose Unknown 2022-0 1-11 00:00: 00 Yes [facility] F Chucho Dose Unknown 2022-0 1-11 00:00: 00 Yes [facility] F Chucho Dose Unknown 2021-1 2-18 00:00: 00 Yes [facility] Flovent HFA 110 mcg/actuati on aerosol inhaler 1-0 9-24 00:00: 00 Yes 12mcg/a ctuatio n [facility] F Chucho Dose Unknown 2021-0 9-03 00:00: 00 Yes Col[facility] F Chucho Dose Unknown 2021-0 8-23 00:00: 00 Yes [facility] F Chucho Dose Unknown 2021-0 8-23 00:00: 00 Yes Col[facility] F Chucho Dose Unknown 2021-0 8-23 00:00: 00 Yes [facility] F Chucho Dose Unknown 2021-0 8-23 00:00: 00 Yes [facility] F Chucho Dose Unknown 2021-0 5-21 00:00: 00 Yes [facility] F Chucho Dose Unknown 2021-0 5-21 00:00: 00 Yes [facility] F Chucho Dose Unknown 2021-0 5-20 00:00: 00 Yes [facility] Rankin Dose Unknown 04-12 00:00: 00 Yes [facility] Rankin Dose Unknown 04-12 00:00: 00 Yes [facility] Dose Unknown 03-21 00:00: 00 Yes [facility] Dose Unknown 03-21 00:00: 00 Yes [facility] Rankin barium sulfate (LIQUID E-Z PAQUE) 60 % (w/v) oral suspension 680 g 03-02 20:30: 00 03-02 16:15 :00 No [id number] 680g 680 g, Oral, ONCE, 1 dose, 03/02/21 at 1530, [facility] prometh[facility] 25 mg tablet 02-16 00:00: 00 Yes 1mg [facility]in Dose Unknown 01-26 00:00: 00 Yes [facility] Rankin Singulair 10 mg tablet 01-24 00:00: 00 Yes 1mg [facility]in Dose Unknown 01-24 00:00: 00 Yes [facility] Rankin benzonatate 200 mg capsule 01-24 00:00: 00 Yes 1mg [facility] Rankin ProAir HFA 90 mcg/actuati on aerosol inhaler 06-12 00:00: 00 Yes 2mcg/ac tuation [facility] Rankin amoxicillin 125 mg chewable tablet 1- 00:00: 00 Yes 1mg [facility] Rankin ferrous sulfate 325 mg (65 mg iron) tablet 04-02 00:00: 00 No take 1 tablet (325 mg) by oral route once daily [facility] diclofenac sodium 50 mg tablet,jenaro yed release 04-01 00:00: 00 No take 1 tablet by Oral route 1 time per day PRN pain [facility] fluoxetine 20 mg capsule 04-01 00:00: 00 No take 1 capsule by Oral route 1 time per day [facility] Vital Signs Vital Name Observation Time Observation Value Comments S xavier Systolic blood pressure 2024-10-10 21:28:19 128 mm[Hg] [facility] Diastolic blood pressure 2024-10-10 21:28:19 82 mm[Hg] [facility] Heart rate 2024-10-10 21:28:19 68 /min [facility] Respiratory rate 2024-10-10 21:28:19 18 /min [facility] Oxygen saturation in Arterial blood by Pulse oximetry 2024-10-10 21:28:19 98 /min [facility] Body temperature 2024-10-10 18:15:00 36.78 Jerrica [facility] Body height 2024-10-10 18:15:00 165.1 cm [facility] Body weight 2024-10-10 18:15:00 122.471 kg [facility] BMI 2024-10-10 18:15:00 44.93 kg/m2 [facility] Systolic blood pressure 2024-02-13 14:53:00 125 mm[Hg] [facility] Diastolic blood pressure 2024-02-13 14:53:00 80 mm[Hg] [facility] Heart rate 2024-02-13 14:53:00 73 /min [facility] Body temperature 2024-02-13 14:53:00 36.11 Jerirca [facility] Respiratory rate 2024-02-13 14:53:00 20 /min [facility] Body height 2024-02-13 14:53:00 172.7 cm [facility] Body weight 2024-02-13 14:53:00 120.657 kg [facility] BMI 2024-02-13 14:53:00 40.45 kg/m2 [facility] Oxygen saturation in Arterial blood by Pulse oximetry 2024-02-13 14:53:00 97 /min [facility] Systolic blood pressure 2023-12-31 16:37:00 139 mm[Hg] [facility] Diastolic blood pressure 2023-12-31 16:37:00 80 mm[Hg] [facility] Heart rate 2023-12-31 16:37:00 58 /min [facility] Body temperature 2023-12-31 16:37:00 36.17 Jerrica [facility] Respiratory rate 2023-12-31 16:37:00 18 /min [facility] Body height 2023-12-31 16:37:00 167.6 cm [facility] Body weight 2023-12-31 16:37:00 119.069 kg [facility] BMI 2023-12-31 16:37:00 42.37 kg/m2 [facility] Oxygen saturation in Arterial blood by Pulse oximetry 2023-12-31 16:37:00 97 /min [facility] BP Systolic 2024-12-25 14:36:00 126 mm[Hg] [facility] BP Diastolic 2024-12-25 14:36:00 88 mm[Hg] [facility] Weight Measured 2024-12-25 14:36:00 260.00 pounds [facility] Height Measured 2024-12-25 14:36:00 68.00 inches [facility] Body Temperature 2024-12-25 14:36:00 98.60 degrees [facility] Heart Rate 2024-12-25 14:36:00 86.00 /min [facility] Respiratory Rate 2024-12-25 14:36:00 18.00 /min [facility] BP Systolic 2024 09:54:00 156 mm[Hg] [facility] BP Diastolic 2024 09:54:00 77 mm[Hg] [facility] Weight Measured 2024 09:54:00 268.60 pounds [facility] Rank[facility] Height Measured 2024 09:54:00 68.00 inches [facility] Body Temperature 2024 09:54:00 98.10 degrees [facility]in Heart Rate 2024 09:54:00 68.00 /min [facility] Respiratory Rate 2024 09:54:00 18.00 /min [facility] BP Systolic 2024-08-16 08:48:00 149 mm[Hg] Colbyheriberto Rankin BP Diastolic 2024-08-16 08:48:00 81 mm[Hg] [facility] Weight Measured 2024-08-16 08:48:00 272.20 pounds [facility] Rankin Height Measured 2024-08-16 08:48:00 68.00 inches Colby Rnakin Body Temperature 2024-08-16 08:48:00 98.20 degrees Colby F Chucho Heart Rate 2024-08-16 08:48:00 94.00 /min [facility] F Chucho Respiratory Rate 2024-08-16 08:48:00 16.00 /min [facility] F Chucho BP Systolic 2024-08-13 08:55:00 119 mm[Hg] [facility] F Chucho BP Diastolic 2024-08-13 08:55:00 81 mm[Hg] [facility] F Chucho Weight Measured 2024-08-13 08:55:00 274.00 pounds [facility] F Chucho Height Measured 2024-08-13 08:55:00 68.00 inches [facility] F Chucho Body Temperature 2024-08-13 08:55:00 98.20 degrees Colby F Chucho Heart Rate 2024-08-13 08:55:00 60.00 /min [facility] F Chucho Respiratory Rate 2024-08-13 08:55:00 16.00 /min [facility] F Chucho BP Systolic 2024-07-31 11:03:00 145 mm[Hg] [facility] F Chucho BP Diastolic 2024-07-31 11:03:00 88 mm[Hg] [facility] F Chucho Weight Measured 2024-07-31 11:03:00 270.00 pounds [facility] F Chucho Height Measured 2024-07-31 11:03:00 68.00 inches [facility] F Chucho Body Temperature 2024-07-31 11:03:00 98.00 degrees Col[facility] F Chucho Heart Rate 2024-07-31 11:03:00 73.00 /min [facility] F Chucho Respiratory Rate 2024-07-31 11:03:00 18.00 /min [facility] F [facility]ucho BP Systolic 2024-07-16 09:06:00 127 mm[Hg] [facility] F Chucho BP Diastolic 2024-07-16 09:06:00 83 mm[Hg] [facility] F Chucho Weight Measured 2024-07-16 09:06:00 267.00 pounds [facility] F Chucho Height Measured 2024-07-16 09:06:00 68.00 inches [facility] F Chucho Body Temperature 2024-07-16 09:06:00 98.30 degrees Colby F Chucho Heart Rate 2024-07-16 09:06:00 77.00 /min [facility] F Chucho Respiratory Rate 2024-07-16 09:06:00 18.00 /min [facility] F Chucho BP Systolic 2024-04-19 10:45:00 138 mm[Hg] [facility] F Chucho BP Diastolic 2024-04-19 10:45:00 80 mm[Hg] [facility] F Chucho Weight Measured 2024-04-19 10:45:00 267.20 pounds [facility] F Chucho Height Measured 2024-04-19 10:45:00 68.00 inches Colby F Chucho Body Temperature 2024-04-19 10:45:00 97.10 degrees Colby F Chucho Heart Rate 2024-04-19 10:45:00 65.00 /min [facility] F Chucho Respiratory Rate 2024-04-19 10:45:00 18.00 /min [facility] F Chucho BP Systolic 2023-12-25 16:53:00 Colby F Chucho BP Diastolic 2023-12-25 16:53:00 Colby F Chucho Weight Measured 2023-12-25 16:53:00 265.00 pounds [facility] F Chucho Height Measured 2023-12-25 16:53:00 68.00 inches [facility] F Chucho Body Temperature 2023-12-25 16:53:00 Colby F Chucho Heart Rate 2023-12-25 16:53:00 Colby F Chucho Respiratory Rate 2023-12-25 16:53:00 Colby F Chucho BP Systolic 2023-12-16 08:08:00 131 mm[Hg] [facility] F Chucho BP Diastolic 2023-12-16 08:08:00 75 mm[Hg] [facility] F Chucho Weight Measured 2023-12-16 08:08:00 267.60 pounds Colby F Chucho Height Measured 2023-12-16 08:08:00 66.70 inches [facility]by F Chucho Body Temperature 2023-12-16 08:08:00 Colby F Chucho Heart Rate 2023-12-16 08:08:00 78.00 /min [facility] F Chucho Respiratory Rate 2023-12-16 08:08:00 Colby F Chucho BP Systolic 2023-10-31 08:44:00 133 mm[Hg] [facility] F Chucho BP Diastolic 2023-10-31 08:44:00 80 mm[Hg] [facility] F Chucho Weight Measured 2023-10-31 08:44:00 258.60 pounds Colby F Chucho Height Measured 2023-10-31 08:44:00 66.70 inches [facility]by F Chucho Body Temperature 2023-10-31 08:44:00 98.20 degrees Colby F Chucho Heart Rate 2023-10-31 08:44:00 84.00 /min [facility] F Chucho Respiratory Rate 2023-10-31 08:44:00 Colby F Chucho BP Systolic 2023-10-07 09:27:00 129 mm[Hg] [facility] F Chucho BP Diastolic 2023-10-07 09:27:00 65 mm[Hg] [facility] F Chucho Weight Measured 2023-10-07 09:27:00 261.20 pounds [facility] F Chucho Height Measured 2023-10-07 09:27:00 66.70 inches [facility] F Chucho Body Temperature 2023-10-07 09:27:00 97.40 degrees Colby F Chucho Heart Rate 2023-10-07 09:27:00 66.00 /min [facility] F Chucho Respiratory Rate 2023-10-07 09:27:00 Colby F Chucho BP Systolic 2023-10-05 10:07:00 Colby F Chucho BP Diastolic 2023-10-05 10:07:00 Colby F Chucho Weight Measured 2023-10-05 10:07:00 Colby F Chucho Height Measured 2023-10-05 10:07:00 Colby F Chucho Body Temperature 2023-10-05 10:07:00 Colby F Chucho Heart Rate 2023-10-05 10:07:00 Colby F Chucho Respiratory Rate 2023-10-05 10:07:00 Colby F Chucho BP Systolic 2023-06-18 10:27:00 121 mm[Hg] [facility] F Chucho BP Diastolic 2023-06-18 10:27:00 86 mm[Hg] [facility] F Chucho Weight Measured 2023-06-18 10:27:00 258.20 pounds Colby F Chucho Height Measured 2023-06-18 10:27:00 66.70 inches Colby F Chucho Body Temperature 2023-06-18 10:27:00 98.20 degrees Colby F Chucho Heart Rate 2023-06-18 10:27:00 63.00 /min [facility] F Chucho Respiratory Rate 2023-06-18 10:27:00 16.00 /min [facility] F Chucho BP Systolic 2023-06-07 14:04:00 129 mm[Hg] [facility] F Chucho BP Diastolic 2023-06-07 14:04:00 83 mm[Hg] [facility] F Chucho Weight Measured 2023-06-07 14:04:00 257.60 pounds Colby F Chucho Height Measured 2023-06-07 14:04:00 66.70 inches Colby F Chucho Body Temperature 2023-06-07 14:04:00 98.20 degrees Colby F Chucho Heart Rate 2023-06-07 14:04:00 63.00 /min [facility] F Chucho Respiratory Rate 2023-06-07 14:04:00 19.00 /min [facility] F Chucho BP Systolic 2022-12-18 16:29:00 146 mm[Hg] [facility] F Chucho BP Diastolic 2022-12-18 16:29:00 84 mm[Hg] [facility] F Chucho Weight Measured 2022-12-18 16:29:00 256.20 pounds [facility] F Chucho Height Measured 2022-12-18 16:29:00 66.70 inches Colby F Chucho Body Temperature 2022-12-18 16:29:00 98.60 degrees Colby F Chucho Heart Rate 2022-12-18 16:29:00 85.00 /min [facility] F Chucho Respiratory Rate 2022-12-18 16:29:00 18.00 /min [facility] F Chucho BP Systolic 2022-12-13 17:38:00 115 mm[Hg] [facility] F Chucho BP Diastolic 2022-12-13 17:38:00 78 mm[Hg] [facility] F Chucho Weight Measured 2022-12-13 17:38:00 259.80 pounds [facility] F Chucho Height Measured 2022-12-13 17:38:00 66.70 inches [facility]by F Chucho Body Temperature 2022-12-13 17:38:00 98.60 degrees Colby F Chucho Heart Rate 2022-12-13 17:38:00 70.00 /min [facility] F Chucho Respiratory Rate 2022-12-13 17:38:00 18.00 /min [facility] F Chucho Body height 2018-04-01 13:06:00 66.00 [in_us] [facility] Patient Body Weight 2018-04-01 13:06:00 259.40 [lb_av] [facility] Systolic 2018-04-01 13:06:00 121 mm[Hg] [facility] Diastolic 2018-04-01 13:06:00 53 mm[Hg] [facility] Heart Beat 2018-04-01 13:06:00 72 /min [facility] Body Temperature 2018-04-01 13:06:00 98.60 [degF] [facility] Respiratory Rate 2018-04-01 13:06:00 18 /min [facility] Body mass index 2018-04-01 13:06:00 41.90 kg/m2 [facility] Procedures Procedure Date / Time Performed Performing Clinicia n Source RAPID STREP SCREEN FOR GROUP A 2024-10-10 19:50:00 Kayli Quintanilla [facility] INFLUENZA A/B RSV COVID NAAT 2024-10-10 19:50:00 Kayli Quintanilla [facility] EXTERNAL PROVIDER RECORDS 2024-01-12 06:01:00 Doctor Unassigned, [place] [facility] ASSIGNMENT OF BENEFITS 2023-12-31 22:47:02 Docto r Unassigned, [place] [facility] REFERRAL- REQUEST/RESPONSE 2023-10-31 06:01:00 Doctor Unassigned, [place] [facility] REFERRAL- REQUEST/RESPONSE 2022-01-07 06:01:00 Doctor Unassigned, [place] [facility] XR CHEST 2 VW 2021-11-12 14:34:00 Requisition, Paper U [facility] [place] SMALL BOWEL SERIES 2021-03-02 20:22:35 Rosalba Eldridge [facility] ASSIGNMENT OF BENEFITS 2021-03-02 14:58:10 Docto r Unassigned, [place] [facility] Encounters Start Date/Time End Date/Time Encounter Type Admission Type Attending Clinicians Care Facility Care Department Encounter ID Source 2024-12-25 14:30:09 2024-12-25 14:30:09 Outpatient [facility] [id number] Colby Cochran Chucho 2024-12-25 00:00:00 2024-12-25 00:00:00 Outpatient Visit [facility] [id number] [facility] Rankin 2024-12-15 07:56:05 2024-12-15 07:56:05 Outpatient [facility] [id number] Colby Rankin 2024-12-15 00:00:00 2024-12-15 00:00:00 Outpatient Visit [facility] [id number] Col[facility] Rankin 2024 09:48:12 2024 09:48:12 Outpatient [facility] [id number] Colby Rankin 2024 00:00:00 2024 00:00:00 Outpatient Visit [facility] [id number] Col[facility] Rankin 2024-10-10 12:16:00 2024-10-10 15:30:00 Emergency X KAYLI QUINTANILLA [facility] ERT [id number] [facility] 2024-10-10 12:16:00 2024-10-10 15:30:00 Emergency Kayli Quintanilla [facility] [id number] [facility] 2024-08-16 08:44:57 2024-08-16 08:44:57 Outpatient [facility] [id number] Colby Rankin 2024-08-13 08:46:00 2024-08-13 08:46:00 Outpatient [facility] [id number] Colby Rankin 2024-07-31 10:51:38 2024-07-31 10:51:38 Outpatient SFA SFA [id number] Col[facility] Rankin 2024-07-31 00:00:00 2024-07-31 00:00:00 Outpatient Visit SFA [id number] [facility] Rank[facility] 2024-07-16 09:00:03 2024-07-16 09:00:03 Outpatient SFA [facility] [id number] Colby Rankin 2024-07-16 00:00:00 2024-07-16 00:00:00 Outpatient Visit SFA [id number] [facility] Rank[facility] 2024-04-22 13:30:50 2024-04-22 13:30:50 Outpatient SFA SFA [id number] [facility] Rankin 2024-04-22 00:00:00 2024-04-22 00:00:00 Outpatient Visit SFA [id number] Colby Rankin 2024-04-19 10:34:55 2024-04-19 10:34:55 Outpatient S[facility] [id number] Colby Rankin 2024-04-19 00:00:00 2024-04-19 00:00:00 Outpatient Visit SFA [id number] Colby Rankin 2024-03-03 00:00:00 2024-04-03 18:05:54 Patient Secure Msg Doctor Unassigned, [place] [facility] .840.114 350.1.13.10 4.2.7.2.686 [id number] [facility] 2024-03-29 09:00:00 2024-03-29 09:00:00 Outpatient R [facility] [id number] [facility] 2024-03-12 00:00:00 2024-03-12 00:00:00 Telephone Martín Lemus [facility] [place] 840.114 350.1.13.10 4.2.7.2.686 [id number] [facility] 2024-02-13 11:45:00 2024-02-13 12:00:00 Graphics Specialist Visit Lab, c Bandar valentin [facility] 1.2840.114 350.1.13.10 4.2.7.2.686 [id number] [facility] 2024-02-13 10:15:00 2024-02-13 10:31:00 Office Visit MelinaAlexandria valentin [facility] 1.0.114 350.1.13.10 4.2.7.2.686 [id number] [facility] 2024-02-13 10:15:00 2024-02-13 10:31:00 Outpatient [facility] [id number] [facility] 2024-01-12 00:00:00 2024-01-12 00:00:00 Telephone BeaversAlexandria valentin [facility] [place] [facility] 1.840.114 350.1.13.10 4.2.7.2.686 [id number] [facility] 2024-01-12 00:00:00 2024-01-12 00:00:00 Orders Only Doctor Unassigned, [place] [facility] 1.840.114 350.1.13.10 4.2.7.2.686 [id number] [facility] 2023-12-31 16:30:00 2023-12-31 16:45:00 Graphics Specialist Visit Pob, Adc Lab Main MelinaAlexandria valentin [facility] 1.2840.114 350.1.13.10 4.2.7.2.686 [id number] [facility] 2023-12-31 11:30:00 2023-12-31 11:45:00 Graphics Specialist Visit Lab, [facility] MelinaAlexandria valentin [facility] 1.840.114 350.1.13.10 4.2.7.2.686 [id number] [facility] 2023-12-31 11:00:00 2023-12-31 11:15:48 Outpatient R [facility] [id number] [facility] 2023-12-31 11:00:00 2023-12-31 11:15:48 [facility] 1.2840.114 350.1.13.10 4.2.7.2.686 [id number] [facility] 2023-12-31 00:00:00 2023-12-31 00:00:00 Orders Only Doctor Unassigned, [place] [facility] 1.0.114 350.1.13.10 4.2.7.2.686 [id number] [facility] 2023-12-16 08:02:50 2023-12-16 08:02:50 Outpatient [facility] [id number] Colby Rankin 2023-11-03 00:00:00 2023-11-03 00:00:00 Telephone [facility] 1.840.114 350.1.13.10 4.2.7.2.686 [id number] [facility] 2023-10-31 08:38:01 2023-10-31 08:38:01 Outpatient [facility] [id number] Colby Rankin 2023-10-31 00:00:00 2023-10-31 00:00:00 Orders Only Doctor Unassigned, [place] [facility] 1.0.114 350.1.13.10 4.2.7.2.686 [id number] [facility] 2023-10-07 09:11:55 2023-10-07 09:11:55 Outpatient [facility] [place] [id number] Colby Rankin 2023-10-06 09:35:28 2023-10-06 09:35:28 Outpatient [facility] [id number] Colby Rankin 2023-09-23 00:00:00 2023-09-23 00:00:00 Outpatient GC_GCBZW_Ka diyala_S [facility] [id number] [facility] 2023-06-18 10:16:53 2023-06-18 10:16:53 Outpatient [place] [id number] Colby Rankin 2023-06-09 13:11:49 2023-06-09 13:11:49 Outpatient [place] [id number] Colby Rankin 2023-06-07 13:53:30 2023-06-07 13:53:30 Outpatient [place] [id number] Colby Cochran Chucho 2022-12-18 16:24:42 2022-12-18 16:24:42 Outpatient [place] [id number] Colby Cochran Chucho 2022-12-13 17:22:38 2022-12-13 17:22:38 Outpatient [place] [id number] Colby Cochran Chucho 2022-12-07 12:23:13 2022-12-07 12:23:13 Outpatient [place] [id number] Colby Rankin 2022-01-07 00:00:00 2022-01-07 00:00:00 Orders Only Doctor Unassigned, [place] [facility] 1.2.840.114 350.1.13.10 4.2.7.2.686 [id number] [facility] 2021-11-12 08:08:27 2021-11-12 23:59:00 Outpatient R RADIOLOGY [facility] [id number] [facility] 2021-11-12 08:08:27 2021-11-12 23:59:00 Hospital Encounter Radiology [facility] 1.2840.114 350.1.13.10 4.2.7.2.686 [id number] [facility] 2021-07-28 15:25:00 2021-07-28 15:25:00 Outpatient nEma [facility] [id number] [facility] 2021-07-28 15:09:49 2021-07-28 15:24:49 Laboratory Only Only, Ang Db Test Alisha, [facility] 1.20.114 350.1.13.10 4.2.7.2.686 [id number] [facility] 2021-03-02 09:59:20 2021-03-02 23:59:00 [id number] 2021-03-02 09:00:00 2021-03-02 23:59:00 Hospital Encounter Rosalba Eldridge [facility] 1.2840.114 350.1.13.10 4.2.7.2.686 [id number] [facility] 2021-03-02 09:00:00 2021-03-02 23:59:00 Hospital Encounter Rosalba Eldridge [facility] 1.2840.114 350.1.13.10 4.2.7.2.686 [id number] 2021-03-02 00:00:00 2021-03-02 00:00:00 [facility] [id number] 2021-03-02 00:00:00 2021-03-02 00:00:00 Orders Only Doctor Unassigned, [place] [facility] 1.0.114 350.1.13.10 4.2.7.2.686 [id number] [facility] 2021-03-02 00:00:00 2021-03-02 00:00:00 Orders Only Doctor Unassigned, [place] [facility] 1.2.840.114 350.1.13.10 4.2.7.2.686 [id number] 2018-07-01 00:00:00 2018-07-01 00:00:00 Outpatient ACCESSHEALT H, PROVIDER [facility] [id number] [facility] 2018-07-01 00:00:00 2018-07-01 00:00:00 Outpatient ACCESSHEALT H, PROVIDER [facility] [id number] [facility] 2018-04-02 00:00:00 2018-04-02 00:00:00 Outpatient ACCESSHEALT H, PROVIDER [facility] [id number] [facility] 2018-04-02 00:00:00 2018-04-02 00:00:00 Outpatient ACCESSHEALT H, PROVIDER [facility] [id number] [facility] 2018-04-02 00:00:00 2018-04-02 00:00:00 Outpatient SARITA ASHTON [facility] [id number] [facility] 2018-04-02 00:00:00 2018-04-02 00:00:00 Outpatient SARITA ASHTON [facility] [id number] [facility] 2018-04-01 00:00:00 2018-04-01 00:00:00 Outpatient ACCESSHEALT H, PROVIDER [facility] [id number] [facility] 2018-04-01 00:00:00 2018-04-01 00:00:00 Outpatient SARITA ASHTON [facility] [id number] [facility] 2018-04-01 00:00:00 2018-04-01 00:00:00 Outpatient ACCESSHEALT H, PROVIDER [facility] [id number] [facility] 2017-12-02 11:36:00 2017-12-02 12:06:00 Emergency E EDWARD THAKKAR [facility] [id number] [facility] Results Test Description Test Time Test Comments Results Result Co mments Source Colby Robles AUTOIMMUNE [id number] 00:00:00* Test Item Value Reference Range Interpretation Comme nts ANTI-NUCLEAR ANTIBODIES (laina t code = 3506) NEGATIVE ESHA PATTERN (REPORTED TITER) (test code = 01209) SEE BELOW HOMOGENEOUS (test code = 07620) NEGATIVE TITER SPECKLED (test code = 471417) NEGATIVE TITER DENSE FINE SPECKLED (test co de = 71338) NEGATIVE TITER CENTROMERE (test code = 561260) NEGATIVE TITER COARSE SPECKLED (test code = 859428) NEGATIVE TITER DISCRETE NUCLEAR DOTS (test code = 257099) NEGATIVE TITER NUCLEOLAR (test code = 763614) NEGATIVE TITER NUCLEAR MEMBRANE (test code = 089000) NEGATIVE TITER CYTO. RETICULAR (MARGARET) (test code = 670104) NEGATIVE COMMENTS (test code = 169284) NONE METHOD (test code = 98397) (NOTE) SJOGREN'S SS-A ANTIBODY (laina t code = 85853) <0.2 AI SJOGREN'S SS-B ANTIBODY (laina t code = 73585) <0.2 AI DUBON (Sm) ANTIBODY (test co de = 03737) <0.2 AI COMMUNITY SUPPORT ASSOCIATE ANTIBODY (test code = 81525) <0.2 AI SCL-70 ANTIBODY (test code = 4606) <0.2 AI Divya-1 ANTIBODY (test code = 4680) <0.2 AI CENTROMERE B ANTIBODY (test code = 4630) <0.2 AI RIBOSOMAL P ANTIBODY (test code = 10716) <0.2 AI CHROMATIN ANTIBODY (test cod e = 81193) <0.2 AI THYROID PEROXIDASE AB (test code = 07696) <9 IU/ML COMPLEMENT C3 (test code = 3509) 162 MG/DL COMPLEMENT C4 (test code = 3510) 28 MG/DL RHEUMATOID FACTOR, QUANT (te st code = 3502) <10 IU/ML dsDNA ANTIBODY (test code = 4287) 2.0 IU/ML CCP IgG (test code = 38466) <0.5 U/ML [facility] [id number] 00:00:00* Test Item Value Reference Range Interpretation Comme nts SEDIMENTATION RATE (test cod e = 1017) 25 MM/HOUR [facility]REACT[facility] [id number] 00:00:00* Test Item Value Reference Range Interpretation Comme nts C-REACTIVE PROTEIN (test cod e = 3513) 2.2 MG/DL [facility]eville[facility]PREH[facility] METABOLIC [id number] 00:00:00* Test Item Value Reference Range Interpretation Comme nts GLUCOSE (test code = 2217) 91 MG/DL BUN (test code = 2208) 12 MG/DL CREATININE (test code = 2214) 0.64 MG/DL eGFR (2020 CKD-EPI) (test code = 05163) 118 ML/MIN/1.73 CALC BUN/CREAT (test code = 2235) 19 RATIO SODIUM (test code = 2231) 139 MEQ/L POTASSIUM (test code = 2228) 4.3 MEQ/L CHLORIDE (test code = 2215) 102 MEQ/L CARBON DIOXIDE (test code = 2206) 24 MEQ/L CALCIUM (test code = 2209) 9.5 MG/DL PROTEIN, TOTAL (test code = 2229) 6.9 G/DL ALBUMIN (test code = 2201) 4.2 G/DL CALC GLOBULIN (test code = 2240) 2.7 G/DL CALC A/G RATIO (test code = 2234) 1.6 RATIO BILIRUBIN, TOTAL (test code = 2207) 0.2 MG/DL ALKALINE PHOSPHATASE (test code = 2204) 83 U/L AST (test code = 2218) 16 U/L ALT (test code = 2219) 22 U/L Colby RankinCBC W/AUTO [id number] 00:00:00* Test Item Value Reference Range Interpretation Comme nts WBC (test code = 1001) 6.1 K/UL RBC (test code = 1002) 4.56 M/UL HEMOGLOBIN (test code = 1003) 10.4 G/DL HEMATOCRIT (test code = 1004) 35.6 % MCV (test code = 1005) 78.1 fL MCH (test code = 1006) 22.8 PG MCHC (test code = 1007) 29.2 G/DL RDW (test code = 1038) 15.6 % NEUTROPHILS (test code = 1008) 49.7 % LYMPHOCYTES (test code = 1010) 40.1 % MONOCYTES (test code = 1011) 6.4 % EOSINOPHILS (test code = 1012) 3.0 % BASOPHILS (test code = 1013) 0.5 % IMMATURE GRANULOCYTES (test code = 1036) 0.3 % NUCLEATED RBCS (test code = 1065) 0.0 /100WBC'S PLATELET COUNT (test code = 1015) 240 K/UL ABSOLUTE NEUTROPHILS (test c ode = 1066) 3.01 K/UL ABSOLUTE LYMPHOCYTES (test c ode = 1067) 2.43 K/UL ABSOLUTE MONOCYTES (test cod e = 1068) 0.39 K/UL ABSOLUTE EOSINOPHILS (test c ode = 1040) 0.18 K/UL ABSOLUTE BASOPHILS (test cod e = 1069) 0.03 K/UL ABS IMMATURE GRANULOCYTES (t est code = 1020) 0.02 K/UL ABS NUCLEATED RBCS (test cod e = 40850) 0.00 K/UL Colby RankinVITAMIN D, 25 [id number] 00:00:00* Test Item Value Reference Range Interpretation Comme [facility] VITAMIN D, 25 OH (test code = 4958) 19 NG/ML Colby RankinVITAMIN [id number] 00:00:00* Test Item Value Reference Range Interpretation Comme claude VITAMIN B-12 (test code = 2840) 664 PG/ML Colby RankinSEDIMENTATION [id number] 00:00:00* Test Item Value Reference Range Interpretation Comme claude SEDIMENTATION RATE (test cod e = 1017) 25 MM/HOUR Colby RankinC-REACTIVE [id number] 00:00:00* Test Item Value Reference Range Interpretation Comme claude C-REACTIVE PROTEIN (test cod e = 3513) 2.2 MG/DL Colby RankinCOMPREHENSIVE METABOLIC [id number] 00:00:00* Test Item Value Reference Range Interpretation Comme nts GLUCOSE (test code = 2217) 91 MG/DL BUN (test code = 2208) 12 MG/DL CREATININE (test code = 2214) 0.64 MG/DL eGFR (2020 CKD-EPI) (test code = 09501) 118 ML/MIN/1.73 CALC BUN/CREAT (test code = 2235) 19 RATIO SODIUM (test code = 2231) 139 MEQ/L POTASSIUM (test code = 2228) 4.3 MEQ/L CHLORIDE (test code = 2215) 102 MEQ/L CARBON DIOXIDE (test code = 2206) 24 MEQ/L CALCIUM (test code = 2209) 9.5 MG/DL PROTEIN, TOTAL (test code = 2229) 6.9 G/DL ALBUMIN (test code = 2201) 4.2 G/DL CALC GLOBULIN (test code = 2240) 2.7 G/DL CALC A/G RATIO (test code = 2234) 1.6 RATIO BILIRUBIN, TOTAL (test code = 2207) 0.2 MG/DL ALKALINE PHOSPHATASE (test code = 2204) 83 U/L AST (test code = 2218) 16 U/L ALT (test code = 2219) 22 U/L Colby RankinCBC W/AUTO [id number] 00:00:00* Test Item Value Reference Range Interpretation Comme claude WBC (test code = 1001) 6.1 K/UL RBC (test code = 1002) 4.56 M/UL HEMOGLOBIN (test code = 1003) 10.4 G/DL HEMATOCRIT (test code = 1004) 35.6 % MCV (test code = 1005) 78.1 fL MCH (test code = 1006) 22.8 PG MCHC (test code = 1007) 29.2 G/DL RDW (test code = 1038) 15.6 % NEUTROPHILS (test code = 1008) 49.7 % LYMPHOCYTES (test code = 1010) 40.1 % MONOCYTES (test code = 1011) 6.4 % EOSINOPHILS (test code = 1012) 3.0 % BASOPHILS (test code = 1013) 0.5 % IMMATURE GRANULOCYTES (test code = 1036) 0.3 % NUCLEATED RBCS (test code = 1065) 0.0 /100WBC'S PLATELET COUNT (test code = 1015) 240 K/UL ABSOLUTE NEUTROPHILS (test c ode = 1066) 3.01 K/UL ABSOLUTE LYMPHOCYTES (test c ode = 1067) 2.43 K/UL ABSOLUTE MONOCYTES (test cod e = 1068) 0.39 K/UL ABSOLUTE EOSINOPHILS (test c ode = 1040) 0.18 K/UL ABSOLUTE BASOPHILS (test cod e = 1069) 0.03 K/UL ABS IMMATURE GRANULOCYTES (t est code = 1020) 0.02 K/UL ABS NUCLEATED RBCS (test cod e = 76249) 0.00 K/UL [facility] 25 [id number] 00:00:00* Test Item Value Reference Range Interpretation Comme [facility] VITAMIN D, 25 OH (test code = 4958) 19 NG/ML [facility] [id number] 00:00:00* Test Item Value Reference Range Interpretation Comme [facility] VITAMIN B-12 (test code = 2840) 664 PG/ML [facility]evilleVAGINAL PATHOGENS DNA [id number] 00:00:00* Test Item Value Reference Range Interpretation Comme [facility] BOUBACAR SPECIES (test code = 55853) NEGATIVE G. VAGINALIS (test code = 54093) POSITIVE T. VAGINALIS (test code = 43900) NEGATIVE Colby Dimas ChuchoPAP TEST, THINPREP, IMAGED + HPV HIGH RISK + GC AND CHLAMYDIA A [id number] 00:00:00* Test Item Value Reference Range Interpretation Comme nts SOURCE: (test code = 8001) Unspecified SLIDES: (test code = 8011) 1 LMP: (test code = 8021) NOT GIVEN SPECIMEN ADEQUACY: (test code = 39195) (NOTE) INTERPRETATION: (test code = 58553) NILM/NO EPITH. ABNORMALITY;SEE BELOW OPERATIONAL METEOROLOGIST: (test code = 8101) NICOLE Hopson (ASCP) LOCATION: (test code = 25122) (NOTE) CPT: (test code = 8140) 13213 HPV HIGH RISK INTERP (test code = 35230) NEGATIVE HPV 16 (test code = 97081) NEGATIVE HPV 18 (test code = 04813) NEGATIVE HPV, HR, OTHER GENOTYPES (test code = 08874) NEGATIVE GONORRHEA, NAAT, THINPREP (test code = 22298) NEGATIVE CHLAMYDIA, NAAT, THINPREP (test code = 77490) NEGATIVE PDFE (test code = PDFReport) PDF Colby Cochran AustinHIV 1/2 4TH GEN, RFLX [id number] 00:00:00* Test Item Value Reference Range Interpretation Comme nts HIV 1/2 4TH GEN, RFLX CONF ( test code = 3514) NON-REACTIVE Colby RankinHEPATITIS PROFILE (A,B,C)[id number] 00:00:00* Test Item Value Reference Range Interpretation Comme nts HEPATITIS A TOTAL AB (test c ode = 2725) NON-REACTIVE HEPATITIS B SURF AG (test co de = 2739) NON-REACTIVE HEP B CORE TOTAL AB (test co de = 2729) NON-REACTIVE HEPATITIS B SURFACE AB (test code = 2737) REACTIVE HEPATITIS C ANTIBODY (test c ode = 4675) NON-REACTIVE INTERPRETATION HEPATITIS A: (test code = 2552) (NOTE) INTERPRETATION HEPATITIS B: (test code = 02660) (NOTE) INTERPRETATION HEPATITIS C: (test code = 50725) (NOTE) Colby Cochran AustinRPR REFLEX TO T. PALLIDUM - [id number] 00:00:00* Test Item Value Reference Range Interpretation Comme nts RPR (test code = 14742) NON-REACTIVE RPR TITER (test code = 3500) NOT INDIC. TITER Colby RankinHERPES SIMPLEX AB, [id number] 00:00:00* Test Item Value Reference Range Interpretation Comme nts HERPES SIMPLEX AB, IgM (test code = 56291) 0.93 INDEX Colby RankinHERPES SIMPLEX 1/2 ANTIBODY, [id number] 00:00:00* Test Item Value Reference Range Interpretation Comme nts HERPES SIMPLEX 1 AB, IgG (te st code = 47486) 13.200 INDEX HERPES SIMPLEX 2 AB, IgG (te st code = 51939) 0.087 INDEX Colby Cochran AustinPAP TEST, THINPREP, IMAGED + HPV HIGH RISK + GC AND CHLAMYDIA A 2024-08-17 00:00:00* Test Item Value Reference Range Interpretation Comme nts SOURCE: (test code = 8001) Unspecified SLIDES: (test code = 8011) 1 LMP: (test code = 8021) NOT GIVEN SPECIMEN ADEQUACY: (test code = 20185) (NOTE) INTERPRETATION: (test code = 82965) NILM/NO EPITH. ABNORMALITY;SEE BELOW OPERATIONAL METEOROLOGIST: (test code = 8101) NICOLE Hopson (ASCP) LOCATION: (test code = 89142) (NOTE) CPT: (test code = 8140) 57881 HPV HIGH RISK INTERP (test code = 07796) NEGATIVE HPV 16 (test code = 81878) NEGATIVE HPV 18 (test code = 44364) NEGATIVE HPV, HR, OTHER GENOTYPES (test code = 89472) NEGATIVE GONORRHEA, NAAT, THINPREP (test code = 21149) NEGATIVE CHLAMYDIA, NAAT, THINPREP (test code = 89537) NEGATIVE PDFE (test code = PDFReport) PDF Colby Cochran AustinVAGINAL PATHOGENS DNA [id number] 00:00:00* Test Item Value Reference Range Interpretation Comme nts BOUBACAR SPECIES (test code = 74517) NEGATIVE G. VAGINALIS (test code = 62142) POSITIVE T. VAGINALIS (test code = 77500) NEGATIVE Colby Cochran AustinHIV 1/2 4TH GEN, RFLX [id number] 00:00:00* Test Item Value Reference Range Interpretation Comme nts HIV 1/2 4TH GEN, RFLX CONF ( test code = 3514) NON-REACTIVE Colby Cochran AustinHEPATITIS PROFILE (A,B,C)2024-08-17 00:00:00* Test Item Value Reference Range Interpretation Comme nts HEPATITIS A TOTAL AB (test c ode = 2725) NON-REACTIVE HEPATITIS B SURF AG (test co de = 2739) NON-REACTIVE HEP B CORE TOTAL AB (test co de = 2729) NON-REACTIVE HEPATITIS B SURFACE AB (test code = 2737) REACTIVE HEPATITIS C ANTIBODY (test c ode = 4675) NON-REACTIVE INTERPRETATION HEPATITIS A: (test code = 2552) (NOTE) INTERPRETATION HEPATITIS B: (test code = 54784) (NOTE) INTERPRETATION HEPATITIS C: (test code = 52447) (NOTE) Colby RankinRPR REFLEX TO T. PALLIDUM - [id number] 00:00:00* Test Item Value Reference Range Interpretation Comme nts RPR (test code = 87794) NON-REACTIVE RPR TITER (test code = 3500) NOT INDIC. TITER Colby RankinHERPES SIMPLEX AB, [id number] 00:00:00* Test Item Value Reference Range Interpretation Comme claude HERPES SIMPLEX AB, IgM (test code = 86470) 0.93 INDEX Colby RankinHERPES SIMPLEX 1/2 ANTIBODY, [id number] 00:00:00* Test Item Value Reference Range Interpretation Comme nts HERPES SIMPLEX 1 AB, IgG (te st code = 21120) 13.200 INDEX HERPES SIMPLEX 2 AB, IgG (te st code = 98222) 0.087 INDEX Colby Cochran AustinVAGINAL PATHOGENS DNA [id number] 00:00:00* Test Item Value Reference Range Interpretation Comme nts BOUBACAR SPECIES (test code = 93662) NEGATIVE G. VAGINALIS (test code = 99953) POSITIVE T. VAGINALIS (test code = 83202) NEGATIVE Colby RankinPAP TEST, THINPREP, IMAGED + HPV HIGH RISK + GC AND CHLAMYDIA A 2024-08-17 00:00:00* Test Item Value Reference Range Interpretation Comme nts SOURCE: (test code = 8001) Unspecified SLIDES: (test code = 8011) 1 LMP: (test code = 8021) NOT GIVEN SPECIMEN ADEQUACY: (test code = 70808) (NOTE) INTERPRETATION: (test code = 89925) NILM/NO EPITH. ABNORMALITY;SEE BELOW OPERATIONAL METEOROLOGIST: (test code = 8101) NICOLE Hopson (ASCP) LOCATION: (test code = 07323) (NOTE) CPT: (test code = 8140) 39040 HPV HIGH RISK INTERP (test code = 59718) NEGATIVE HPV 16 (test code = 13242) NEGATIVE HPV 18 (test code = 00495) NEGATIVE HPV, HR, OTHER GENOTYPES (test code = 60531) NEGATIVE GONORRHEA, NAAT, THINPREP (test code = 92928) NEGATIVE CHLAMYDIA, NAAT, THINPREP (test code = 90079) NEGATIVE PDFE (test code = PDFReport) PDF Col[facility] RankinHIV 1/2 4TH GEN, RFLX [id number] 00:00:00* Test Item Value Reference Range Interpretation Comme nts HIV 1/2 4TH GEN, RFLX CONF ( test code = 3514) NON-REACTIVE Colby RankinHEPATITIS PROFILE (A,B,C)2024-08-17 00:00:00* Test Item Value Reference Range Interpretation Comme nts HEPATITIS A TOTAL AB (test c ode = 2725) NON-REACTIVE HEPATITIS B SURF AG (test co de = 2739) NON-REACTIVE HEP B CORE TOTAL AB (test co de = 2729) NON-REACTIVE HEPATITIS B SURFACE AB (test code = 2737) REACTIVE HEPATITIS C ANTIBODY (test c ode = 4675) NON-REACTIVE INTERPRETATION HEPATITIS A: (test code = 2552) (NOTE) INTERPRETATION HEPATITIS B: (test code = 49039) (NOTE) INTERPRETATION HEPATITIS C: (test code = 69381) (NOTE) Colby RankinRPR REFLEX TO T. PALLIDUM - [id number] 00:00:00* Test Item Value Reference Range Interpretation Comme nts RPR (test code = 94649) NON-REACTIVE RPR TITER (test code = 3500) NOT INDIC. TITER Colby RankinHERPES SIMPLEX AB, [id number] 00:00:00* Test Item Value Reference Range Interpretation Comme nts HERPES SIMPLEX AB, IgM (test code = 85122) 0.93 INDEX Colby RankinHERPES SIMPLEX 1/2 ANTIBODY, [id number] 00:00:00* Test Item Value Reference Range Interpretation Comme nts HERPES SIMPLEX 1 AB, IgG (te st code = 04646) 13.200 INDEX HERPES SIMPLEX 2 AB, IgG (te st code = 18424) 0.087 INDEX Colby RankinCOMPREHENSIVE METABOLIC [id number] 00:00:00* Test Item Value Reference Range Interpretation Comme nts GLUCOSE (test code = 2217) 119 MG/DL BUN (test code = 2208) 14 MG/DL CREATININE (test code = 2214) 0.64 MG/DL eGFR (2020 CKD-EPI) (test code = 90558) 119 ML/MIN/1.73 CALC BUN/CREAT (test code = 2235) 22 RATIO SODIUM (test code = 2231) 140 MEQ/L POTASSIUM (test code = 2228) 4.6 MEQ/L CHLORIDE (test code = 2215) 106 MEQ/L CARBON DIOXIDE (test code = 2206) 23 MEQ/L CALCIUM (test code = 2209) 9.2 MG/DL PROTEIN, TOTAL (test code = 2229) 7.2 G/DL ALBUMIN (test code = 2201) 4.1 G/DL CALC GLOBULIN (test code = 2240) 3.1 G/DL CALC A/G RATIO (test code = 2234) 1.3 RATIO BILIRUBIN, TOTAL (test code = 2207) 0.3 MG/DL ALKALINE PHOSPHATASE (test code = 220) 69 U/L AST (test code = 2218) 15 U/L ALT (test code = 2219) 18 U/L Colby RankinVITAMIN D, 25 [id number] 00:00:00* Test Item Value Reference Range Interpretation Comme nts VITAMIN D, 25 OH (test code = 4958) 22 NG/ML Colby RankinLIPID [id number] 00:00:00* Test Item Value Reference Range Interpretation Comme nts CHOLESTEROL (test code = 2210) 142 MG/DL TRIGLYCERIDES (test code = 2232) 61 MG/DL HDL CHOLESTEROL (test code = 2220) 43 MG/DL CALC LDL CHOL (test code = 2237) 85 MG/DL RISK RATIO LDL/HDL (test cod e = 2238) 1.98 RATIO Colby RankinHEMOGLOBIN [id number] 00:00:00* Test Item Value Reference Range Interpretation Comme nts HEMOGLOBIN A1c (test code = 00152) 6.3 % Colby Cochran ChuchoCOMPREHENSIVE METABOLIC [id number] 00:00:00* Test Item Value Reference Range Interpretation Comme nts GLUCOSE (test code = 2217) 119 MG/DL BUN (test code = 2208) 14 MG/DL CREATININE (test code = 2214) 0.64 MG/DL eGFR (2020 CKD-EPI) (test code = 05675) 119 ML/MIN/1.73 CALC BUN/CREAT (test code = 2235) 22 RATIO SODIUM (test code = 2231) 140 MEQ/L POTASSIUM (test code = 2228) 4.6 MEQ/L CHLORIDE (test code = 2215) 106 MEQ/L CARBON DIOXIDE (test code = 2206) 23 MEQ/L CALCIUM (test code = 2209) 9.2 MG/DL PROTEIN, TOTAL (test code = 2229) 7.2 G/DL ALBUMIN (test code = 2201) 4.1 G/DL CALC GLOBULIN (test code = 2240) 3.1 G/DL CALC A/G RATIO (test code = 2234) 1.3 RATIO BILIRUBIN, TOTAL (test code = 2207) 0.3 MG/DL ALKALINE PHOSPHATASE (test code = 220) 69 U/L AST (test code = 221) 15 U/L ALT (test code = 2219) 18 U/L Colby RankinVITAMIN D, 25 [id number] 00:00:00* Test Item Value Reference Range Interpretation Comme [facility] VITAMIN D, 25 OH (test code = 4958) 22 NG/ML Colby RankinLIPID [id number] 00:00:00* Test Item Value Reference Range Interpretation Comme nts CHOLESTEROL (test code = 2210) 142 MG/DL TRIGLYCERIDES (test code = 2232) 61 MG/DL HDL CHOLESTEROL (test code = 2220) 43 MG/DL CALC LDL CHOL (test code = 2237) 85 MG/DL RISK RATIO LDL/HDL (test cod e = 2238) 1.98 RATIO Colby RankinHEMOGLOBIN [id number] 00:00:00* Test Item Value Reference Range Interpretation Comme nts HEMOGLOBIN A1c (test code = 59575) 6.3 % Colby RankinCOMPREHENSIVE METABOLIC [id number] 00:00:00* Test Item Value Reference Range Interpretation Comme nts GLUCOSE (test code = 2217) 119 MG/DL BUN (test code = 2208) 14 MG/DL CREATININE (test code = 2214) 0.64 MG/DL eGFR (2020 CKD-EPI) (test code = 01422) 119 ML/MIN/1.73 CALC BUN/CREAT (test code = 2235) 22 RATIO SODIUM (test code = 2231) 140 MEQ/L POTASSIUM (test code = 2228) 4.6 MEQ/L CHLORIDE (test code = 2215) 106 MEQ/L CARBON DIOXIDE (test code = 2206) 23 MEQ/L CALCIUM (test code = 2209) 9.2 MG/DL PROTEIN, TOTAL (test code = 2229) 7.2 G/DL ALBUMIN (test code = 2201) 4.1 G/DL CALC GLOBULIN (test code = 2240) 3.1 G/DL CALC A/G RATIO (test code = 2234) 1.3 RATIO BILIRUBIN, TOTAL (test code = 2207) 0.3 MG/DL ALKALINE PHOSPHATASE (test code = 2204) 69 U/L AST (test code = 2218) 15 U/L ALT (test code = 2219) 18 U/L Colby RankinVITAMIN D, 25 [id number] 00:00:00* Test Item Value Reference Range Interpretation Comme [facility] VITAMIN D, 25 OH (test code = 4958) 22 NG/ML Colby RankinLIPID [id number] 00:00:00* Test Item Value Reference Range Interpretation Comme nts CHOLESTEROL (test code = 2210) 142 MG/DL TRIGLYCERIDES (test code = 2232) 61 MG/DL HDL CHOLESTEROL (test code = 2220) 43 MG/DL CALC LDL CHOL (test code = 2237) 85 MG/DL RISK RATIO LDL/HDL (test cod e = 2238) 1.98 RATIO Colby RankinHEMOGLOBIN [id number] 00:00:00* Test Item Value Reference Range Interpretation Comme [facility] HEMOGLOBIN A1c (test code = 02217) 6.3 % Colby RankinCOMPREHENSIVE METABOLIC [id number] 00:00:00* Test Item Value Reference Range Interpretation Comme nts GLUCOSE (test code = 2217) 119 MG/DL BUN (test code = 2208) 14 MG/DL CREATININE (test code = 2214) 0.64 MG/DL eGFR (2020 CKD-EPI) (test code = 63019) 119 ML/MIN/1.73 CALC BUN/CREAT (test code = 2235) 22 RATIO SODIUM (test code = 2231) 140 MEQ/L POTASSIUM (test code = 2228) 4.6 MEQ/L CHLORIDE (test code = 2215) 106 MEQ/L CARBON DIOXIDE (test code = 2206) 23 MEQ/L CALCIUM (test code = 2209) 9.2 MG/DL PROTEIN, TOTAL (test code = 2229) 7.2 G/DL ALBUMIN (test code = 2201) 4.1 G/DL CALC GLOBULIN (test code = 2240) 3.1 G/DL CALC A/G RATIO (test code = 2234) 1.3 RATIO BILIRUBIN, TOTAL (test code = 2207) 0.3 MG/DL ALKALINE PHOSPHATASE (test code = 2204) 69 U/L AST (test code = 2218) 15 U/L ALT (test code = 2219) 18 U/L Colby RankinVITAMIN D, 25 [id number] 00:00:00* Test Item Value Reference Range Interpretation Comme [facility] VITAMIN D, 25 OH (test code = 4958) 22 NG/ML Colby RankinLIPID [id number] 00:00:00* Test Item Value Reference Range Interpretation Comme nts CHOLESTEROL (test code = 2210) 142 MG/DL TRIGLYCERIDES (test code = 2232) 61 MG/DL HDL CHOLESTEROL (test code = 2220) 43 MG/DL CALC LDL CHOL (test code = 2237) 85 MG/DL RISK RATIO LDL/HDL (test cod e = 2238) 1.98 RATIO Colby RankinHEMOGLOBIN [id number] 00:00:00* Test Item Value Reference Range Interpretation Comme [facility] HEMOGLOBIN A1c (test code = 35164) 6.3 % Colby RankinCOMPREHENSIVE METABOLIC [id number] 00:00:00* Test Item Value Reference Range Interpretation Comme nts GLUCOSE (test code = 2217) 119 MG/DL BUN (test code = 2208) 14 MG/DL CREATININE (test code = 2214) 0.64 MG/DL eGFR (2020 CKD-EPI) (test code = 37672) 119 ML/MIN/1.73 CALC BUN/CREAT (test code = 2235) 22 RATIO SODIUM (test code = 2231) 140 MEQ/L POTASSIUM (test code = 2228) 4.6 MEQ/L CHLORIDE (test code = 2215) 106 MEQ/L CARBON DIOXIDE (test code = 2206) 23 MEQ/L CALCIUM (test code = 2209) 9.2 MG/DL PROTEIN, TOTAL (test code = 2229) 7.2 G/DL ALBUMIN (test code = 2201) 4.1 G/DL CALC GLOBULIN (test code = 2240) 3.1 G/DL CALC A/G RATIO (test code = 2234) 1.3 RATIO BILIRUBIN, TOTAL (test code = 2207) 0.3 MG/DL ALKALINE PHOSPHATASE (test code = 2204) 69 U/L AST (test code = 2218) 15 U/L ALT (test code = 2219) 18 U/L Colby RankinVITAMIN D, 25 [id number] 00:00:00* Test Item Value Reference Range Interpretation Comme [facility] VITAMIN D, 25 OH (test code = 4958) 22 NG/ML Colby RankinLIPID [id number] 00:00:00* Test Item Value Reference Range Interpretation Comme nts CHOLESTEROL (test code = 2210) 142 MG/DL TRIGLYCERIDES (test code = 2232) 61 MG/DL HDL CHOLESTEROL (test code = 2220) 43 MG/DL CALC LDL CHOL (test code = 2237) 85 MG/DL RISK RATIO LDL/HDL (test cod e = 2238) 1.98 RATIO Colby RankinHEMOGLOBIN [id number] 00:00:00* Test Item Value Reference Range Interpretation Comme [facility] HEMOGLOBIN A1c (test code = 74856) 6.3 % Colby RankinCOMPREHENSIVE METABOLIC [id number] 00:00:00* Test Item Value Reference Range Interpretation Comme nts GLUCOSE (test code = 2217) 119 MG/DL BUN (test code = 2208) 14 MG/DL CREATININE (test code = 2214) 0.64 MG/DL eGFR (2020 CKD-EPI) (test code = 90224) 119 ML/MIN/1.73 CALC BUN/CREAT (test code = 2235) 22 RATIO SODIUM (test code = 2231) 140 MEQ/L POTASSIUM (test code = 2228) 4.6 MEQ/L CHLORIDE (test code = 2215) 106 MEQ/L CARBON DIOXIDE (test code = 2206) 23 MEQ/L CALCIUM (test code = 2209) 9.2 MG/DL PROTEIN, TOTAL (test code = 2229) 7.2 G/DL ALBUMIN (test code = 2201) 4.1 G/DL CALC GLOBULIN (test code = 2240) 3.1 G/DL CALC A/G RATIO (test code = 2234) 1.3 RATIO BILIRUBIN, TOTAL (test code = 2207) 0.3 MG/DL ALKALINE PHOSPHATASE (test code = 2204) 69 U/L AST (test code = 2218) 15 U/L ALT (test code = 2219) 18 U/L Colby RankinVITAMIN D, 25 [id number] 00:00:00* Test Item Value Reference Range Interpretation Comme [facility] VITAMIN D, 25 OH (test code = 4958) 22 NG/ML Colby RankinLIPID [id number] 00:00:00* Test Item Value Reference Range Interpretation Comme nts CHOLESTEROL (test code = 2210) 142 MG/DL TRIGLYCERIDES (test code = 2232) 61 MG/DL HDL CHOLESTEROL (test code = 2220) 43 MG/DL CALC LDL CHOL (test code = 2237) 85 MG/DL RISK RATIO LDL/HDL (test cod e = 2238) 1.98 RATIO Colby RankinHEMOGLOBIN [id number] 00:00:00* Test Item Value Reference Range Interpretation Comme [facility] HEMOGLOBIN A1c (test code = 13562) 6.3 % Colby RankinCOMPREHENSIVE METABOLIC [id number] 00:00:00* Test Item Value Reference Range Interpretation Comme nts GLUCOSE (test code = 2217) 119 MG/DL BUN (test code = 2208) 14 MG/DL CREATININE (test code = 2214) 0.64 MG/DL eGFR (2020 CKD-EPI) (test code = 96293) 119 ML/MIN/1.73 CALC BUN/CREAT (test code = 2235) 22 RATIO SODIUM (test code = 2231) 140 MEQ/L POTASSIUM (test code = 2228) 4.6 MEQ/L CHLORIDE (test code = 2215) 106 MEQ/L CARBON DIOXIDE (test code = 2206) 23 MEQ/L CALCIUM (test code = 2209) 9.2 MG/DL PROTEIN, TOTAL (test code = 2229) 7.2 G/DL ALBUMIN (test code = 2201) 4.1 G/DL CALC GLOBULIN (test code = 2240) 3.1 G/DL CALC A/G RATIO (test code = 2234) 1.3 RATIO BILIRUBIN, TOTAL (test code = 2207) 0.3 MG/DL ALKALINE PHOSPHATASE (test code = 2204) 69 U/L AST (test code = 2218) 15 U/L ALT (test code = 2219) 18 U/L Colby RankinVITAMIN D, 25 [id number] 00:00:00* Test Item Value Reference Range Interpretation Comme nts VITAMIN D, 25 OH (test code = 4958) 22 NG/ML Colby RankinLIPID [id number] 00:00:00* Test Item Value Reference Range Interpretation Comme nts CHOLESTEROL (test code = 2210) 142 MG/DL TRIGLYCERIDES (test code = 2232) 61 MG/DL HDL CHOLESTEROL (test code = 2220) 43 MG/DL CALC LDL CHOL (test code = 2237) 85 MG/DL RISK RATIO LDL/HDL (test cod e = 2238) 1.98 RATIO Colby RankinHEMOGLOBIN [id number] 00:00:00* Test Item Value Reference Range Interpretation Comme nts HEMOGLOBIN A1c (test code = 19368) 6.3 % Colby RankinS. CEREVISIAE IgG/[id number] 15:04:29* Test Item Value Reference Range Interpretation Comme nts S. CEREVISIAE IgG (test code = 25140) 22.5 Units <20.1 H S. CEREVISIAE IgA (test code = 86271) 4.9 Units <20.1 Anti-Sacchar omyces cerevisiae antibodies (ASCA) may be found in39-76% of patients with Crohn's disease (CD) and up to 15% ofpatients with ulcerative colitis (UC). Detection of both ASCA IgG andIgA antibodies in the same specimen is highly specific for CD. ASCAmay also be found in healthy individuals, and in individuals withBehcet's disease, celiac disease, autoimmune hepatitis, and primarybiliary cirrhosis. The ASCA antibody results should be used in conjunction with clinicalfindings, imaging studies, and/or biopsy findings prior to a finaldiagnosis of inflammatory bowel disease. Interpretive Information: S cerevisiae, IgG and IgA20.0 Units or less Kcskgjob77.1 - 24.9 Units Arpftncsi28.0 Units or greater Positive TESTING PERFORMED AT [facility] [address] [place] [address], [address], [place] [address] CLIA NO: [id number] S. CEREVISIAE IgG/[id number] 00:00:00* Test Item Value Reference Range Interpretation Comme nts S. CEREVISIAE IgG (test code = 02476) 22.5 Units S. CEREVISIAE IgA (test code = 54431) 4.9 Units Colby RankinS. CEREVISIAE IgG/[id number] 00:00:00* Test Item Value Reference Range Interpretation Comme nts S. CEREVISIAE IgG (test code = 21685) 22.5 Units S. CEREVISIAE IgA (test code = 71931) 4.9 Units Colby RankinS. CEREVISIAE IgG/[id number] 00:00:00* Test Item Value Reference Range Interpretation Comme nts S. CEREVISIAE IgG (test code = 48447) 22.5 Units S. CEREVISIAE IgA (test code = 43238) 4.9 Units Colby RankinS. CEREVISIAE IgG/[id number] 00:00:00* Test Item Value Reference Range Interpretation Comme nts S. CEREVISIAE IgG (test code = 03246) 22.5 Units S. CEREVISIAE IgA (test code = 62684) 4.9 Units Colby RankinS. CEREVISIAE IgG/[id number] 00:00:00* Test Item Value Reference Range Interpretation Comme nts S. CEREVISIAE IgG (test code = 28585) 22.5 Units S. CEREVISIAE IgA (test code = 41374) 4.9 Units Colby RankinS. CEREVISIAE IgG/[id number] 00:00:00* Test Item Value Reference Range Interpretation Comme nts S. CEREVISIAE IgG (test code = 37331) 22.5 Units S. CEREVISIAE IgA (test code = 01268) 4.9 Units Colby RankinS. CEREVISIAE IgG/[id number] 00:00:00* Test Item Value Reference Range Interpretation Comme nts S. CEREVISIAE IgG (test code = 71833) 22.5 Units S. CEREVISIAE IgA (test code = 23385) 4.9 Units Colby Robles AUTOIMMUNE [id number] 23:19:13* Test Item Value Reference Range Interpretation Comments ANTI-NUCLEAR ANTIBODIES (test code = 3506) NEGATIVE NEGATIVE ESHA PATTERN (REPORTED TITER) (test code = 37801) SEE BELOW HOMOGENEOUS (test code = 58376) NEGATIVE TITER NEGATIVE SPECKLED (test code = 813126) NEGATIVE TITER NEGATIVE DENSE FINE SPECKLED (test code = 70474) NEGATIVE TITER NEGATIVE CENTROMERE (test code = 733850) NEGATIVE TITER NEGATIVE COARSE SPECKLED (test code = 155293) NEGATIVE TITER NEGATIVE DISCRETE NUCLEAR DOTS (test code = 059488) NEGATIVE TITER NEGATIVE NUCLEOLAR (test code = 369272) NEGATIVE TITER NEGATIVE NUCLEAR MEMBRANE (test code = 362478) NEGATIVE TITER NEGATIVE CYTO. RETICULAR (MARGARET) (test code = 739682) NEGATIVE NEGATIVE COMMENTS (test code = 237455) NONE METHOD (test code = 21279) (NOTE) TESTING PERFORME D BY [email or web address] IFA PLATFORM.THE METHOD INCLUDES A SCREEN THRESHOLD OF 1:80, DIGITIZED AND COMPUTER ALGORITHM-ASSISTED INTERPRETATION OF TITERS AND DIGITAL PATTERNS, AND HEp-2 CELL LINE SUBSTRATE. ADDITIONAL UNUSUAL PATTERNS WILL BE GIVEN COMMENTS.FOR MORE INFORMATION, SEE [email or web address] SJOGREN'S SS-A ANTIBODY (test code = 48848) <0.2 AI <1.0 SJOGREN'S SS-B ANTIBODY (test code = 35808) <0.2 AI <1.0 DUBON (Sm) ANTIBODY (test code = 15741) <0.2 AI <1.0 COMMUNITY SUPPORT ASSOCIATE ANTIBODY (test code = 81001) <0.2 AI <1.0 SCL-70 ANTIBODY (test code = 4606) <0.2 AI <1.0 Divya-1 ANTIBODY (test code = 4680) <0.2 AI <1.0 CENTROMERE B ANTIBODY (test code = 4630) <0.2 AI <1.0 RIBOSOMAL P ANTIBODY (test code = 40165) <0.2 AI <1.0 CHROMATIN ANTIBODY (test code = 10475) <0.2 AI <1.0 THYROID PEROXIDASE AB (test code = 68911) 10 IU/ML See_Comment EFFECTIVE 2022, NEW REFERENCE RANGE CHANGE ASSOCIATEDWITH CHANGE IN METHODOLOGY.NEW METHODOLOGY IS [employer] ELECTROCHEMILUMESCENCE IMMUNOASSAY(ECLIA). FOR MORE INFORMATION, [email or web address] [Automated message] The system which generated this result transmitted reference range: <=34. The reference range was not used to interpret this result as normal/abnormal. COMPLEMENT C3 (test code = 3509) 152 MG/DL 90-180 COMPLEMENT C4 (test code = 3510) 23 MG/DL 10-40 RHEUMATOID FACTOR, QUANT (test code = 3502) <10 IU/ML <14 dsDNA ANTIBODY (test code = 4287) 1.0 IU/ML SEE BELOW NEGATIVE . . . . . . . . . . . . . . IU/ML <=4.9 INDETERMINATE. . . . . . . . . . . . IU/ML 5.0-9.0 POSITIVE . . . . . . . . . . . . . . IU/ML >=10.0 CCP IgG (test code = 62419) <0.5 U/ML <3.0 INTERPRETIVE INFORMATION INTERPRETATION RESULT NEGATIVE <3.0 U/ML POSITIVE >=3.0 U/ML FOLATE, [id number] 13:19:38* Test Item Value Reference Range Interpretation Comme nts HEMATOCRIT (test code = 1004) 35.4 % 34.0-45.0 FOLATE, RBC (test code = 2690) 1000 NG/ML 499-1504 INTERPRETI VE RANGES DEFICIENCY . . . . . . . . . . . . . . . NG/ML <=150 POSSIBLE DEFICIENCY. . . . . . . . . . . NG/ML 151-498 SUFFICIENT . . . . . . . . . . . . . . . NG/ML 499-1504 EXCESS . . . . . . . . . . . . . . . . . NG/ML >1504 UNLESS OTHERWISE INDICATED, ALL TESTING PERFORMED AT [facility] [address] [place] [address] ASSEMBLER PLASTIC BOAT: MANUEL STOCKTON M.D. CLIA NUMBER [id number] [facility] [place]. [id number] 06:31:30* Test Item Value Reference Range Interpretation Comme nts RPR RESULT (test code = 3501) NON-REACTIVE NON-REACTIVE RPR TITER (test code = 3500) NOT INDIC. TITER NOT INDIC. COMPREHENSIVE METABOLIC [id number] 06:18:54* Test Item Value Reference Range Interpretation Comme nts GLUCOSE (test code = 2217) 122 MG/DL 70-99 H BUN (test code = 2208) 24 MG/DL 6-20 H CREATININE (test code = 2214) 0.92 MG/DL 0.60-1.30 eGFR (2020 CKD-EPI) (test code = ) 84 ML/MIN/1.73 >60 CALC BUN/CREAT (test code = 2234) 26 RATIO 6-28 SODIUM (test code = 2230) 139 MEQ/L 133-146 POTASSIUM (test code = 2227) 4.2 MEQ/L 3.5-5.4 CHLORIDE (test code = 2214) 100 MEQ/L 95-107 CARBON DIOXIDE (test code = 2205) 24 MEQ/L 19-31 CALCIUM (test code = 2208) 9.9 MG/DL 8.5-10.5 PROTEIN, TOTAL (test code = 2228) 7.1 G/DL 6.1-8.3 ALBUMIN (test code = 2200) 4.6 G/DL 3.5-5.2 CALC GLOBULIN (test code = 2239) 2.5 G/DL 1.9-3.7 CALC A/G RATIO (test code = 2233) 1.8 RATIO 1.0-2.6 BILIRUBIN, TOTAL (test code = 2206) 0.3 MG/DL See_Comment [Automated me ssage] The system which generated this result transmitted reference range: <=1.2. The reference range was not used to interpret this result as normal/abnormal. ALKALINE PHOSPHATASE (test code = 2203) 63 U/L 40-114 AST (test code = 2217) 14 U/L 9-40 ALT (test code = 2218) 18 U/L 5-40 IRON BINDING CAPACITY AND IRON AND % [id number] 06:18:54* Test Item Value Reference Range Interpretation Comme nts IRON, SERUM (test code = 2221) 49 UG/DL 37-145 UNSATURATED IBC (test code = 62309) 363 UG/DL 112-347 H CALC TOTAL IBC (test code = 2076) 412 UG/DL 250-450 CALC % IRON SAT (test code = 2078) 12 % 20-50 L C-REACTIVE [id number] 06:17:31* Test Item Value Reference Range Interpretation Comme nts C-REACTIVE PROTEIN (test cod e = 3513) 1.1 MG/DL <0.5 H VITAMIN D, 25 [id number] 06:17:01* Test Item Value Reference Range Interpretation Comme nts VITAMIN D, 25 OH (test code = 4958) 16 NG/ML SEE BELOW L EFFECTIVE 07/2023, PLEASE NOTE NEW METHODOLOGY IS ELECTROCHEMILUMINESCENCE BINDING ASSAY. NOTE: 25-HYDROXYVITAMIN D ASSAY INCLUDES 25-HYDROXYVITAMIN D2 AND D3. INTERPRETIVE RANGES PEDIATRIC (<17 YEARS) . . . . . . . . . . . NG/ML 20-100ADULT: INSUFFICIENT . . . . . . . . . . . . . . NG/ML <20 SUBOPTIMAL . . . . . . . . . . . . . . . NG/ML 20-29 OPTIMAL . . . . . . . . . . . . . . . . . NG/ML 30-100 VITAMIN [id number] 05:03:07* Test Item Value Reference Range [facility]ation [facility] (test code = 2840) 762 PG/ML 200-950 HEPATITIS PANEL, [id number] 04:24:59* Test Item Value Reference Range Interpretation [facility] IgM (test code = 49190) NON-REACTIVE NON-REACTIVE HEPATITIS B CORE IgM (test code = 4644) NON-REACTIVE NON-REACTIVE HEPATITIS B SURF AG (test code = 2739) NON-REACTIVE NON-REACTIVE HEPATITIS C ANTIBODY (test code = 4675) NON-REACTIVE NON-REACTIVE INTERPRETATION HEPATITIS A: (test code = 2552) (NOTE) Hepatitis A serology shows no evidence of acute hepatitis A. INTERPRETATION HEPATITIS B: (test code = 20689) (NOTE) Hepatitis B serology shows no evidence of acute hepatitis B andno indication of exposure to hepatitis B virus in the previous renee eight months. INTERPRETATION HEPATITIS C: (test code = 14340) (NOTE) Hepatitis C serology shows no evidence of exposure to hepatitisC virus at this time. It can take up to 12 months after exposure tothe hepatitis C virus for antibodies to become detectable in the blood in certain patients. HIV 1/2 4TH GEN, RFLX [id number] 04:24:59* Test Item Value Reference Range Interpretation Comme [facility] HIV 1/2 4TH GEN, RFLX CONF ( test code = 3514) NON-REACTIVE NON-REACTIVE SEDIMENTATION [id number] 02:51:09* Test Item Value Reference Range Interpretation Comme nts SEDIMENTATION RATE (test cod e = 1017) 16 MM/HOUR 0-20 C-REACTIVE [id number] 00:00:00* Test Item Value Reference Range Interpretation Comme nts C-REACTIVE PROTEIN (test cod e = 3513) 1.1 MG/DL Colby Cochran AustinSEDIMENTATION [id number] 00:00:00* Test Item Value Reference Range Interpretation Comme nts SEDIMENTATION RATE (test cod e = 1017) 16 MM/HOUR Colby Cochran AustinCOMPREHENSIVE METABOLIC [id number] 00:00:00* Test Item Value Reference Range Interpretation Comme nts GLUCOSE (test code = 2217) 122 MG/DL BUN (test code = 2208) 24 MG/DL CREATININE (test code = 2214) 0.92 MG/DL eGFR (2020 CKD-EPI) (test co de = 76590) 84 ML/MIN/1.73 CALC BUN/CREAT (test code = 2235) 26 RATIO SODIUM (test code = 2231) 139 MEQ/L POTASSIUM (test code = 2228) 4.2 MEQ/L CHLORIDE (test code = 2215) 100 MEQ/L CARBON DIOXIDE (test code = 2206) 24 MEQ/L CALCIUM (test code = 2209) 9.9 MG/DL PROTEIN, TOTAL (test code = 2229) 7.1 G/DL ALBUMIN (test code = 2201) 4.6 G/DL CALC GLOBULIN (test code = 2240) 2.5 G/DL CALC A/G RATIO (test code = 2234) 1.8 RATIO BILIRUBIN, TOTAL (test code = 2207) 0.3 MG/DL ALKALINE PHOSPHATASE (test code = 2204) 63 U/L AST (test code = 2218) 14 U/L ALT (test code = 2219) 18 U/L Colby Cochran AustinHIV 1/2 4TH GEN, RFLX [id number] 00:00:00* Test Item Value Reference Range Interpretation Comme nts HIV 1/2 4TH GEN, RFLX CONF ( test code = 3514) NON-REACTIVE Colby RankinIRON BINDING CAPACITY AND IRON AND % [id number] 00:00:00* Test Item Value Reference Range Interpretation Comme nts IRON, SERUM (test code = 2222) 49 UG/DL UNSATURATED IBC (test code = 48813) 363 UG/DL CALC TOTAL IBC (test code = 207) 412 UG/DL CALC % IRON SAT (test code = 207) 12 % Colby RankinACUTE HEPATITIS [id number] 00:00:00* Test Item Value Reference Range Interpretation Comme nts HEPATITIS A IgM (test code = 60273) NON-REACTIVE HEPATITIS B CORE IgM (test c ode = 4644) NON-REACTIVE HEPATITIS B SURF AG (test co de = 2739) NON-REACTIVE HEPATITIS C ANTIBODY (test c ode = 4675) NON-REACTIVE INTERPRETATION HEPATITIS A: (test code = 2552) (NOTE) INTERPRETATION HEPATITIS B: (test code = 62541) (NOTE) INTERPRETATION HEPATITIS C: (test code = 08279) (NOTE) Colby Robles AUTOIMMUNE [id number] 00:00:00* Test Item Value Reference Range Interpretation Comme nts ANTI-NUCLEAR ANTIBODIES (laina t code = 3506) NEGATIVE ESHA PATTERN (REPORTED TITER) (test code = 21369) SEE BELOW HOMOGENEOUS (test code = 15082) NEGATIVE TITER SPECKLED (test code = 649657) NEGATIVE TITER DENSE FINE SPECKLED (test co de = 91165) NEGATIVE TITER CENTROMERE (test code = 489265) NEGATIVE TITER COARSE SPECKLED (test code = 631414) NEGATIVE TITER DISCRETE NUCLEAR DOTS (test code = 056966) NEGATIVE TITER NUCLEOLAR (test code = 425936) NEGATIVE TITER NUCLEAR MEMBRANE (test code = 340163) NEGATIVE TITER CYTO. RETICULAR (MARGARET) (test code = 553901) NEGATIVE COMMENTS (test code = 229198) NONE METHOD (test code = 09661) (NOTE) SJOGREN'S SS-A ANTIBODY (laina t code = 64638) <0.2 AI SJOGREN'S SS-B ANTIBODY (laina t code = 33343) <0.2 AI DUBON (Sm) ANTIBODY (test co de = 46801) <0.2 AI COMM[employer] ASS[employer]IATE ANTIBODY (test code = 39995) <0.2 AI SCL-70 ANTIBODY (test code = 7074) <0.2 AI Divya-1 ANTIBODY (test code = 3835) <0.2 AI CENTROMERE B ANTIBODY (test code = 4630) <0.2 AI RIBOSOMAL P ANTIBODY (test code = 27264) <0.2 AI CHROMATIN ANTIBODY (test cod e = 12676) <0.2 AI THYROID PEROXIDASE AB (test code = 55465) 10 IU/ML COMPLEMENT C3 (test code = 3509) 152 MG/DL COMPLEMENT C4 (test code = 3510) 23 MG/DL RHEUMATOID FACTOR, QUANT (te st code = 3502) <10 IU/ML dsDNA ANTIBODY (test code = 4287) 1.0 IU/ML CCP IgG (test code = 24694) <0.5 U/ML Colby [id number] 00:00:00* Test Item Value Reference Range Interpretation Comme nts RPR RESULT (test code = 3501) NON-REACTIVE RPR TITER (test code = 3500) NOT INDIC. TITER Colby RankinFOLATE, [id number] 00:00:00* Test Item Value Reference Range Interpretation Comme nts HEMATOCRIT (test code = 1004) 35.4 % FOLATE, RBC (test code = 2690) 1000 NG/ML Colby RankinVITAMIN D, 25 [id number] 00:00:00* Test Item Value Reference Range Interpretation Comme [facility] VITAMIN D, 25 OH (test code = 4958) 16 NG/ML Colby RankinVITAMIN [id number] 00:00:00* Test Item Value Reference Range Interpretation Comme [facility] VITAMIN B-12 (test code = 2840) 762 PG/ML Colby RankinC-REACTIVE [id number] 00:00:00* Test Item Value Reference Range Interpretation Comme [facility] C-REACTIVE PROTEIN (test cod e = 3513) 1.1 MG/DL Colby RankinSEDIMENTATION [id number] 00:00:00* Test Item Value Reference Range Interpretation Comme nts SEDIMENTATION RATE (test cod e = 1017) 16 MM/HOUR Colby RankinCOMPREHENSIVE METABOLIC [id number] 00:00:00* Test Item Value Reference Range Interpretation Comme nts GLUCOSE (test code = 2217) 122 MG/DL BUN (test code = 2208) 24 MG/DL CREATININE (test code = 2214) 0.92 MG/DL eGFR (2020 CKD-EPI) (test co de = 98498) 84 ML/MIN/1.73 CALC BUN/CREAT (test code = 2235) 26 RATIO SODIUM (test code = 2231) 139 MEQ/L POTASSIUM (test code = 2228) 4.2 MEQ/L CHLORIDE (test code = 2215) 100 MEQ/L CARBON DIOXIDE (test code = 2206) 24 MEQ/L CALCIUM (test code = 2209) 9.9 MG/DL PROTEIN, TOTAL (test code = 2229) 7.1 G/DL ALBUMIN (test code = 2201) 4.6 G/DL CALC GLOBULIN (test code = 2240) 2.5 G/DL CALC A/G RATIO (test code = 2234) 1.8 RATIO BILIRUBIN, TOTAL (test code = 2207) 0.3 MG/DL ALKALINE PHOSPHATASE (test code = 2204) 63 U/L AST (test code = 2218) 14 U/L ALT (test code = 2219) 18 U/L Colby RankinHIV 1/2 4TH GEN, RFLX [id number] 00:00:00* Test Item Value Reference Range Interpretation Comme nts HIV 1/2 4TH GEN, RFLX CONF ( test code = 3514) NON-REACTIVE Colby RankinIRON BINDING CAPACITY AND IRON AND % [id number] 00:00:00* Test Item Value Reference Range Interpretation Comme nts IRON, SERUM (test code = 222) 49 UG/DL UNSATURATED IBC (test code = 36739) 363 UG/DL CALC TOTAL IBC (test code = 2076) 412 UG/DL CALC % IRON SAT (test code = 2078) 12 % Colby RankinACUTE HEPATITIS [id number] 00:00:00* Test Item Value Reference Range Interpretation Comme nts HEPATITIS A IgM (test code = 82022) NON-REACTIVE HEPATITIS B CORE IgM (test c ode = 4644) NON-REACTIVE HEPATITIS B SURF AG (test co de = 6859) NON-REACTIVE HEPATITIS C ANTIBODY (test c ode = 4661) NON-REACTIVE INTERPRETATION HEPATITIS A: (test code = 2552) (NOTE) INTERPRETATION HEPATITIS B: (test code = 67071) (NOTE) INTERPRETATION HEPATITIS C: (test code = 23405) (NOTE) Colby RankinANA AUTOIMMUNE [id number] 00:00:00* Test Item Value Reference Range Interpretation Comme nts ANTI-NUCLEAR ANTIBODIES (laina t code = 3506) NEGATIVE ESHA PATTERN (REPORTED TITER) (test code = 27169) SEE BELOW HOMOGENEOUS (test code = 87072) NEGATIVE TITER SPECKLED (test code = 065522) NEGATIVE TITER DENSE FINE SPECKLED (test co de = 43439) NEGATIVE TITER CENTROMERE (test code = 134384) NEGATIVE TITER COARSE SPECKLED (test code = 402544) NEGATIVE TITER DISCRETE NUCLEAR DOTS (test code = 662587) NEGATIVE TITER NUCLEOLAR (test code = 097568) NEGATIVE TITER NUCLEAR MEMBRANE (test code = 774457) NEGATIVE TITER CYTO. RETICULAR (MARGARET) (test code = 646424) NEGATIVE COMMENTS (test code = 429832) NONE METHOD (test code = 17970) (NOTE) SJOGREN'S SS-A ANTIBODY (laina t code = 35781) <0.2 AI SJOGREN'S SS-B ANTIBODY (laina t code = 05403) <0.2 AI DUBON (Sm) ANTIBODY (test co de = 45797) <0.2 AI COMMUNITY SUPPORT ASSOCIATE ANTIBODY (test code = 73167) <0.2 AI SCL-70 ANTIBODY (test code = 4606) <0.2 AI Divya-1 ANTIBODY (test code = 4680) <0.2 AI CENTROMERE B ANTIBODY (test code = 4630) <0.2 AI RIBOSOMAL P ANTIBODY (test code = 31035) <0.2 AI CHROMATIN ANTIBODY (test cod e = 28559) <0.2 AI THYROID PEROXIDASE AB (test code = 88371) 10 IU/ML COMPLEMENT C3 (test code = 3509) 152 MG/DL COMPLEMENT C4 (test code = 3510) 23 MG/DL RHEUMATOID FACTOR, QUANT (te st code = 3502) <10 IU/ML dsDNA ANTIBODY (test code = 4287) 1.0 IU/ML CCP IgG (test code = 57566) <0.5 U/ML Colby Dimas [id number] 00:00:00* Test Item Value Reference Range Interpretation Comme nts RPR RESULT (test code = 3501) NON-REACTIVE RPR TITER (test code = 3500) NOT INDIC. TITER Colby RankinFOLATE, [id number] 00:00:00* Test Item Value Reference Range Interpretation Comme nts HEMATOCRIT (test code = 1004) 35.4 % FOLATE, RBC (test code = 2690) 1000 NG/ML Colby RankinVITAMIN D, 25 [id number] 00:00:00* Test Item Value Reference Range Interpretation Comme [facility] VITAMIN D, 25 OH (test code = 4958) 16 NG/ML Colby RankinVITAMIN [id number] 00:00:00* Test Item Value Reference Range Interpretation Comme [facility] VITAMIN B-12 (test code = 2840) 762 PG/ML Colby RankinC-REACTIVE [id number] 00:00:00* Test Item Value Reference Range Interpretation Comme [facility] C-REACTIVE PROTEIN (test cod e = 3513) 1.1 MG/DL Colby RnakinSEDIMENTATION [id number] 00:00:00* Test Item Value Reference Range Interpretation Comme [facility] SEDIMENTATION RATE (test cod e = 1017) 16 MM/HOUR Colby RankinCOMPREHENSIVE METABOLIC [id number] 00:00:00* Test Item Value Reference Range Interpretation Comme [facility] GLUCOSE (test code = 2217) 122 MG/DL BUN (test code = 2208) 24 MG/DL CREATININE (test code = 2214) 0.92 MG/DL eGFR (2020 CKD-EPI) (test co de = 55395) 84 ML/MIN/1.73 CALC BUN/CREAT (test code = 2235) 26 RATIO SODIUM (test code = 2231) 139 MEQ/L POTASSIUM (test code = 2228) 4.2 MEQ/L CHLORIDE (test code = 2215) 100 MEQ/L CARBON DIOXIDE (test code = 2206) 24 MEQ/L CALCIUM (test code = 2209) 9.9 MG/DL PROTEIN, TOTAL (test code = 2229) 7.1 G/DL ALBUMIN (test code = 2201) 4.6 G/DL CALC GLOBULIN (test code = 2240) 2.5 G/DL CALC A/G RATIO (test code = 2234) 1.8 RATIO BILIRUBIN, TOTAL (test code = 2207) 0.3 MG/DL ALKALINE PHOSPHATASE (test code = 2204) 63 U/L AST (test code = 2218) 14 U/L ALT (test code = 2219) 18 U/L Colby RankinHIV 1/2 4TH GEN, RFLX [id number] 00:00:00* Test Item Value Reference Range Interpretation Comme nts HIV 1/2 4TH GEN, RFLX CONF ( test code = 3514) NON-REACTIVE Colby RankinIRON BINDING CAPACITY AND IRON AND % [id number] 00:00:00* Test Item Value Reference Range Interpretation Comme nts IRON, SERUM (test code = 2222) 49 UG/DL UNSATURATED IBC (test code = 99120) 363 UG/DL CALC TOTAL IBC (test code = 2076) 412 UG/DL CALC % IRON SAT (test code = 207) 12 % Colby RankinACUTE HEPATITIS [id number] 00:00:00* Test Item Value Reference Range Interpretation Comme nts HEPATITIS A IgM (test code = 45426) NON-REACTIVE HEPATITIS B CORE IgM (test c ode = 4644) NON-REACTIVE HEPATITIS B SURF AG (test co de = 2739) NON-REACTIVE HEPATITIS C ANTIBODY (test c ode = 4675) NON-REACTIVE INTERPRETATION HEPATITIS A: (test code = 2552) (NOTE) INTERPRETATION HEPATITIS B: (test code = 75745) (NOTE) INTERPRETATION HEPATITIS C: (test code = 01591) (NOTE) Colby Robles AUTOIMMUNE [id number] 00:00:00* Test Item Value Reference Range Interpretation Comme nts ANTI-NUCLEAR ANTIBODIES (laina t code = 3506) NEGATIVE ESHA PATTERN (REPORTED TITER) (test code = 20363) SEE BELOW HOMOGENEOUS (test code = 37308) NEGATIVE TITER SPECKLED (test code = 948719) NEGATIVE TITER DENSE FINE SPECKLED (test co de = 36034) NEGATIVE TITER CENTROMERE (test code = 226252) NEGATIVE TITER COARSE SPECKLED (test code = 323503) NEGATIVE TITER DISCRETE NUCLEAR DOTS (test code = 302608) NEGATIVE TITER NUCLEOLAR (test code = 925704) NEGATIVE TITER NUCLEAR MEMBRANE (test code = 931322) NEGATIVE TITER CYTO. RETICULAR (MARGARET) (test code = 718705) NEGATIVE COMMENTS (test code = 344875) NONE METHOD (test code = 41814) (NOTE) SJOGREN'S SS-A ANTIBODY (laina t code = 72925) <0.2 AI SJOGREN'S SS-B ANTIBODY (laina t code = 21740) <0.2 AI DUBON (Sm) ANTIBODY (test co de = 43990) <0.2 AI COMMUNITY SUPPORT ASSOCIATE ANTIBODY (test code = 33192) <0.2 AI SCL-70 ANTIBODY (test code = 4606) <0.2 AI Divya-1 ANTIBODY (test code = 4680) <0.2 AI CENTROMERE B ANTIBODY (test code = 4630) <0.2 AI RIBOSOMAL P ANTIBODY (test code = 29810) <0.2 AI CHROMATIN ANTIBODY (test cod e = 87655) <0.2 AI THYROID PEROXIDASE AB (test code = 08629) 10 IU/ML COMPLEMENT C3 (test code = 3509) 152 MG/DL COMPLEMENT C4 (test code = 3510) 23 MG/DL RHEUMATOID FACTOR, QUANT (te st code = 3502) <10 IU/ML dsDNA ANTIBODY (test code = 4287) 1.0 IU/ML CCP IgG (test code = 53483) <0.5 U/ML Colby [id number] 00:00:00* Test Item Value Reference Range Interpretation Comme nts RPR RESULT (test code = 3501) NON-REACTIVE RPR TITER (test code = 3500) NOT INDIC. TITER Colby RankinFOLATE, [id number] 00:00:00* Test Item Value Reference Range Interpretation Comme nts HEMATOCRIT (test code = 1004) 35.4 % FOLATE, RBC (test code = 2690) 1000 NG/ML Colby RankinVITAMIN D, 25 [id number] 00:00:00* Test Item Value Reference Range Interpretation Comme [facility] VITAMIN D, 25 OH (test code = 4958) 16 NG/ML Colby RankinVITAMIN [id number] 00:00:00* Test Item Value Reference Range Interpretation Comme [facility] VITAMIN B-12 (test code = 2840) 762 PG/ML Colby RankinC-REACTIVE [id number] 00:00:00* Test Item Value Reference Range Interpretation Comme [facility] C-REACTIVE PROTEIN (test cod e = 3513) 1.1 MG/DL Colby RankinSEDIMENTATION [id number] 00:00:00* Test Item Value Reference Range Interpretation Comme nts SEDIMENTATION RATE (test cod e = 1017) 16 MM/HOUR Colby RankinCOMPREHENSIVE METABOLIC [id number] 00:00:00* Test Item Value Reference Range Interpretation Comme nts GLUCOSE (test code = 2217) 122 MG/DL BUN (test code = 2208) 24 MG/DL CREATININE (test code = 2214) 0.92 MG/DL eGFR (2020 CKD-EPI) (test co de = ) 84 ML/MIN/1.73 CALC BUN/CREAT (test code = 2235) 26 RATIO SODIUM (test code = 2231) 139 MEQ/L POTASSIUM (test code = 2228) 4.2 MEQ/L CHLORIDE (test code = 2215) 100 MEQ/L CARBON DIOXIDE (test code = 2206) 24 MEQ/L CALCIUM (test code = 2209) 9.9 MG/DL PROTEIN, TOTAL (test code = 222) 7.1 G/DL ALBUMIN (test code = 2201) 4.6 G/DL CALC GLOBULIN (test code = 2240) 2.5 G/DL CALC A/G RATIO (test code = 2234) 1.8 RATIO BILIRUBIN, TOTAL (test code = 2206) 0.3 MG/DL ALKALINE PHOSPHATASE (test code = 2203) 63 U/L AST (test code = 221) 14 U/L ALT (test code = 2219) 18 U/L Colby RankinHIV 1/2 4TH GEN, RFLX [id number] 00:00:00* Test Item Value Reference Range Interpretation Comme nts HIV 1/2 4TH GEN, RFLX CONF ( test code = 3514) NON-REACTIVE Colby RankinIRON BINDING CAPACITY AND IRON AND % [id number] 00:00:00* Test Item Value Reference Range Interpretation Comme nts IRON, SERUM (test code = 222) 49 UG/DL UNSATURATED IBC (test code = 26949) 363 UG/DL CALC TOTAL IBC (test code = 2076) 412 UG/DL CALC % IRON SAT (test code = 2078) 12 % Colby RankinACUTE HEPATITIS [id number] 00:00:00* Test Item Value Reference Range Interpretation Comme nts HEPATITIS A IgM (test code = 91073) NON-REACTIVE HEPATITIS B CORE IgM (test c ode = 4644) NON-REACTIVE HEPATITIS B SURF AG (test co de = 7824) NON-REACTIVE HEPATITIS C ANTIBODY (test c ode = 6839) NON-REACTIVE INTERPRETATION HEPATITIS A: (test code = 2552) (NOTE) INTERPRETATION HEPATITIS B: (test code = 15785) (NOTE) INTERPRETATION HEPATITIS C: (test code = 18274) (NOTE) Colby Robles AUTOIMMUNE [id number] 00:00:00* Test Item Value Reference Range Interpretation Comme nts ANTI-NUCLEAR ANTIBODIES (laina t code = 3506) NEGATIVE ESHA PATTERN (REPORTED TITER) (test code = 39527) SEE BELOW HOMOGENEOUS (test code = 85391) NEGATIVE TITER SPECKLED (test code = 396166) NEGATIVE TITER DENSE FINE SPECKLED (test co de = 98752) NEGATIVE TITER CENTROMERE (test code = 746171) NEGATIVE TITER COARSE SPECKLED (test code = 668362) NEGATIVE TITER DISCRETE NUCLEAR DOTS (test code = 601988) NEGATIVE TITER NUCLEOLAR (test code = 142676) NEGATIVE TITER NUCLEAR MEMBRANE (test code = 723158) NEGATIVE TITER CYTO. RETICULAR (MARGARET) (test code = 027431) NEGATIVE COMMENTS (test code = 244634) NONE METHOD (test code = 76532) (NOTE) SJOGREN'S SS-A ANTIBODY (laina t code = 86475) <0.2 AI SJOGREN'S SS-B ANTIBODY (laina t code = 44557) <0.2 AI DUBON (Sm) ANTIBODY (test co de = 09369) <0.2 AI COMMUNITY SUPPORT ASSOCIATE ANTIBODY (test code = 74630) <0.2 AI SCL-70 ANTIBODY (test code = 4606) <0.2 AI Divya-1 ANTIBODY (test code = 4680) <0.2 AI CENTROMERE B ANTIBODY (test code = 4630) <0.2 AI RIBOSOMAL P ANTIBODY (test code = 97940) <0.2 AI CHROMATIN ANTIBODY (test cod e = 28340) <0.2 AI THYROID PEROXIDASE AB (test code = 32324) 10 IU/ML COMPLEMENT C3 (test code = 3509) 152 MG/DL COMPLEMENT C4 (test code = 3510) 23 MG/DL RHEUMATOID FACTOR, QUANT (te st code = 3502) <10 IU/ML dsDNA ANTIBODY (test code = 4287) 1.0 IU/ML CCP IgG (test code = 58594) <0.5 U/ML Colby [id number] 00:00:00* Test Item Value Reference Range Interpretation Comme nts RPR RESULT (test code = 3501) NON-REACTIVE RPR TITER (test code = 3500) NOT INDIC. TITER Colby RankinFOLATE, [id number] 00:00:00* Test Item Value Reference Range Interpretation Comme [facility] HEMATOCRIT (test code = 1004) 35.4 % FOLATE, RBC (test code = 2690) 1000 NG/ML Colby RankinVITAMIN D, 25 [id number] 00:00:00* Test Item Value Reference Range Interpretation Comme [facility] VITAMIN D, 25 OH (test code = 4958) 16 NG/ML Colby RankinVITAMIN [id number] 00:00:00* Test Item Value Reference Range Interpretation Comme [facility] VITAMIN B-12 (test code = 2840) 762 PG/ML Colby RankinC-REACTIVE [id number] 00:00:00* Test Item Value Reference Range Interpretation Comme [facility] C-REACTIVE PROTEIN (test cod e = 3513) 1.1 MG/DL Colby RankinSEDIMENTATION [id number] 00:00:00* Test Item Value Reference Range Interpretation Comme nts SEDIMENTATION RATE (test cod e = 1017) 16 MM/HOUR Colby RankinCOMPREHENSIVE METABOLIC [id number] 00:00:00* Test Item Value Reference Range Interpretation Comme nts GLUCOSE (test code = 2217) 122 MG/DL BUN (test code = 2208) 24 MG/DL CREATININE (test code = 2214) 0.92 MG/DL eGFR (2020 CKD-EPI) (test co de = 41863) 84 ML/MIN/1.73 CALC BUN/CREAT (test code = 2235) 26 RATIO SODIUM (test code = 2231) 139 MEQ/L POTASSIUM (test code = 2228) 4.2 MEQ/L CHLORIDE (test code = 2215) 100 MEQ/L CARBON DIOXIDE (test code = 2206) 24 MEQ/L CALCIUM (test code = 2209) 9.9 MG/DL PROTEIN, TOTAL (test code = 2229) 7.1 G/DL ALBUMIN (test code = 2201) 4.6 G/DL CALC GLOBULIN (test code = 2240) 2.5 G/DL CALC A/G RATIO (test code = 2234) 1.8 RATIO BILIRUBIN, TOTAL (test code = 2207) 0.3 MG/DL ALKALINE PHOSPHATASE (test code = 2204) 63 U/L AST (test code = 2218) 14 U/L ALT (test code = 2219) 18 U/L Colby RankinHIV 1/2 4TH GEN, RFLX [id number] 00:00:00* Test Item Value Reference Range Interpretation Comme nts HIV 1/2 4TH GEN, RFLX CONF ( test code = 3514) NON-REACTIVE Colby RankinIRON BINDING CAPACITY AND IRON AND % [id number] 00:00:00* Test Item Value Reference Range Interpretation Comme nts IRON, SERUM (test code = 2222) 49 UG/DL UNSATURATED IBC (test code = 94524) 363 UG/DL CALC TOTAL IBC (test code = 2077) 412 UG/DL CALC % IRON SAT (test code = 2079) 12 % Colby RankinACUTE HEPATITIS [id number] 00:00:00* Test Item Value Reference Range Interpretation Comme nts HEPATITIS A IgM (test code = 45650) NON-REACTIVE HEPATITIS B CORE IgM (test c ode = 4644) NON-REACTIVE HEPATITIS B SURF AG (test co de = 2739) NON-REACTIVE HEPATITIS C ANTIBODY (test c ode = 4675) NON-REACTIVE INTERPRETATION HEPATITIS A: (test code = 2552) (NOTE) INTERPRETATION HEPATITIS B: (test code = 77662) (NOTE) INTERPRETATION HEPATITIS C: (test code = 21362) (NOTE) Colby Robles AUTOIMMUNE [id number] 00:00:00* Test Item Value Reference Range Interpretation Comme nts ANTI-NUCLEAR ANTIBODIES (laina t code = 3506) NEGATIVE ESHA PATTERN (REPORTED TITER) (test code = 26346) SEE BELOW HOMOGENEOUS (test code = 02068) NEGATIVE TITER SPECKLED (test code = 412853) NEGATIVE TITER DENSE FINE SPECKLED (test co de = 11618) NEGATIVE TITER CENTROMERE (test code = 116899) NEGATIVE TITER COARSE SPECKLED (test code = 453847) NEGATIVE TITER DISCRETE NUCLEAR DOTS (test code = 350496) NEGATIVE TITER NUCLEOLAR (test code = 963401) NEGATIVE TITER NUCLEAR MEMBRANE (test code = 180588) NEGATIVE TITER CYTO. RETICULAR (MARGARET) (test code = 944461) NEGATIVE COMMENTS (test code = 405136) NONE METHOD (test code = 47764) (NOTE) SJOGREN'S SS-A ANTIBODY (laina t code = 17058) <0.2 AI SJOGREN'S SS-B ANTIBODY (laina t code = 21879) <0.2 AI DUBON (Sm) ANTIBODY (test co de = 43639) <0.2 AI COMMUNITY SUPPORT ASSOCIATE ANTIBODY (test code = 04035) <0.2 AI SCL-70 ANTIBODY (test code = 4606) <0.2 AI Divya-1 ANTIBODY (test code = 4680) <0.2 AI CENTROMERE B ANTIBODY (test code = 4630) <0.2 AI RIBOSOMAL P ANTIBODY (test code = 28735) <0.2 AI CHROMATIN ANTIBODY (test cod e = 94804) <0.2 AI THYROID PEROXIDASE AB (test code = 77987) 10 IU/ML COMPLEMENT C3 (test code = 3509) 152 MG/DL COMPLEMENT C4 (test code = 3510) 23 MG/DL RHEUMATOID FACTOR, QUANT (te st code = 3502) <10 IU/ML dsDNA ANTIBODY (test code = 4287) 1.0 IU/ML CCP IgG (test code = 77748) <0.5 U/ML Colby [id number] 00:00:00* Test Item Value Reference Range Interpretation Comme nts RPR RESULT (test code = 3501) NON-REACTIVE RPR TITER (test code = 3500) NOT INDIC. TITER Colby RankinFOLATE, [id number] 00:00:00* Test Item Value Reference Range Interpretation Comme [facility] HEMATOCRIT (test code = 1004) 35.4 % FOLATE, RBC (test code = 2690) 1000 NG/ML Colby RankinVITAMIN D, 25 [id number] 00:00:00* Test Item Value Reference Range Interpretation Comme [facility] VITAMIN D, 25 OH (test code = 4958) 16 NG/ML Colby RankinVITAMIN [id number] 00:00:00* Test Item Value Reference Range Interpretation Comme [facility] VITAMIN B-12 (test code = 2840) 762 PG/ML Colby RankinC-REACTIVE [id number] 00:00:00* Test Item Value Reference Range Interpretation Comme [facility] C-REACTIVE PROTEIN (test cod e = 3513) 1.1 MG/DL Colby Cochran ChuchoSEDIMENTATION [id number] 00:00:00* Test Item Value Reference Range Interpretation Comme nts SEDIMENTATION RATE (test cod e = 1017) 16 MM/HOUR Colby RankinCOMPREHENSIVE METABOLIC [id number] 00:00:00* Test Item Value Reference Range Interpretation Comme nts GLUCOSE (test code = 2217) 122 MG/DL BUN (test code = 2208) 24 MG/DL CREATININE (test code = 2214) 0.92 MG/DL eGFR (2020 CKD-EPI) (test co de = 33899) 84 ML/MIN/1.73 CALC BUN/CREAT (test code = 2235) 26 RATIO SODIUM (test code = 2231) 139 MEQ/L POTASSIUM (test code = 2228) 4.2 MEQ/L CHLORIDE (test code = 2215) 100 MEQ/L CARBON DIOXIDE (test code = 2206) 24 MEQ/L CALCIUM (test code = 2209) 9.9 MG/DL PROTEIN, TOTAL (test code = 2229) 7.1 G/DL ALBUMIN (test code = 2201) 4.6 G/DL CALC GLOBULIN (test code = 2240) 2.5 G/DL CALC A/G RATIO (test code = 2234) 1.8 RATIO BILIRUBIN, TOTAL (test code = 2207) 0.3 MG/DL ALKALINE PHOSPHATASE (test code = 2204) 63 U/L AST (test code = 2218) 14 U/L ALT (test code = 2219) 18 U/L Colby RankinHIV 1/2 4TH GEN, RFLX [id number] 00:00:00* Test Item Value Reference Range Interpretation Comme nts HIV 1/2 4TH GEN, RFLX CONF ( test code = 3514) NON-REACTIVE Colby RankinIRON BINDING CAPACITY AND IRON AND % [id number] 00:00:00* Test Item Value Reference Range Interpretation Comme nts IRON, SERUM (test code = 222) 49 UG/DL UNSATURATED IBC (test code = 23263) 363 UG/DL CALC TOTAL IBC (test code = 7) 412 UG/DL CALC % IRON SAT (test code = 207) 12 % Colby RankinACUTE HEPATITIS [id number] 00:00:00* Test Item Value Reference Range Interpretation Comme nts HEPATITIS A IgM (test code = 73460) NON-REACTIVE HEPATITIS B CORE IgM (test c ode = 4632) NON-REACTIVE HEPATITIS B SURF AG (test co de = 2819) NON-REACTIVE HEPATITIS C ANTIBODY (test c ode = 4146) NON-REACTIVE INTERPRETATION HEPATITIS A: (test code = 2552) (NOTE) INTERPRETATION HEPATITIS B: (test code = 82814) (NOTE) INTERPRETATION HEPATITIS C: (test code = 02789) (NOTE) Colby Robles AUTOIMMUNE [id number] 00:00:00* Test Item Value Reference Range Interpretation Comme nts ANTI-NUCLEAR ANTIBODIES (laina t code = 3506) NEGATIVE ESHA PATTERN (REPORTED TITER) (test code = 58718) SEE BELOW HOMOGENEOUS (test code = 45692) NEGATIVE TITER SPECKLED (test code = 648691) NEGATIVE TITER DENSE FINE SPECKLED (test co de = 16625) NEGATIVE TITER CENTROMERE (test code = 349045) NEGATIVE TITER COARSE SPECKLED (test code = 586776) NEGATIVE TITER DISCRETE NUCLEAR DOTS (test code = 380996) NEGATIVE TITER NUCLEOLAR (test code = 633387) NEGATIVE TITER NUCLEAR MEMBRANE (test code = 754587) NEGATIVE TITER CYTO. RETICULAR (MARGARET) (test code = 876709) NEGATIVE COMMENTS (test code = 153028) NONE METHOD (test code = 07911) (NOTE) SJOGREN'S SS-A ANTIBODY (laina t code = 48536) <0.2 AI SJOGREN'S SS-B ANTIBODY (laina t code = 17111) <0.2 AI DUBON (Sm) ANTIBODY (test co de = 02600) <0.2 AI COMMUNITY SUPPORT ASSOCIATE ANTIBODY (test code = 41715) <0.2 AI SCL-70 ANTIBODY (test code = 4606) <0.2 AI Divya-1 ANTIBODY (test code = 4680) <0.2 AI CENTROMERE B ANTIBODY (test code = 4630) <0.2 AI RIBOSOMAL P ANTIBODY (test code = 78778) <0.2 AI CHROMATIN ANTIBODY (test cod e = 86688) <0.2 AI THYROID PEROXIDASE AB (test code = 47264) 10 IU/ML COMPLEMENT C3 (test code = 7519) 152 MG/DL COMPLEMENT C4 (test code = 3510) 23 MG/DL RHEUMATOID FACTOR, QUANT (te st code = 7322) <10 IU/ML dsDNA ANTIBODY (test code = 4287) 1.0 IU/ML CCP IgG (test code = 23424) <0.5 U/ML Colby [id number] 00:00:00* Test Item Value Reference Range Interpretation Comme nts RPR RESULT (test code = 3501) NON-REACTIVE RPR TITER (test code = 3500) NOT INDIC. TITER Colby RankinFOLATE, [id number] 00:00:00* Test Item Value Reference Range Interpretation Comme [facility] HEMATOCRIT (test code = 1004) 35.4 % FOLATE, RBC (test code = 2690) 1000 NG/ML Colby RankinVITAMIN D, 25 [id number] 00:00:00* Test Item Value Reference Range Interpretation Comme [facility] VITAMIN D, 25 OH (test code = 4958) 16 NG/ML Colby RankinVITAMIN [id number] 00:00:00* Test Item Value Reference Range Interpretation Comme [facility] VITAMIN B-12 (test code = 2840) 762 PG/ML Colby RankinC-REACTIVE [id number] 00:00:00* Test Item Value Reference Range Interpretation Comme [facility] C-REACTIVE PROTEIN (test cod e = 3513) 1.1 MG/DL Colby RankinSEDIMENTATION [id number] 00:00:00* Test Item Value Reference Range Interpretation Comme nts SEDIMENTATION RATE (test cod e = 1017) 16 MM/HOUR Colby RankinCOMPREHENSIVE METABOLIC [id number] 00:00:00* Test Item Value Reference Range Interpretation Comme nts GLUCOSE (test code = 2217) 122 MG/DL BUN (test code = 2208) 24 MG/DL CREATININE (test code = 2214) 0.92 MG/DL eGFR (2020 CKD-EPI) (test co de = 43270) 84 ML/MIN/1.73 CALC BUN/CREAT (test code = 2235) 26 RATIO SODIUM (test code = 2231) 139 MEQ/L POTASSIUM (test code = 2228) 4.2 MEQ/L CHLORIDE (test code = 2215) 100 MEQ/L CARBON DIOXIDE (test code = 2206) 24 MEQ/L CALCIUM (test code = 2209) 9.9 MG/DL PROTEIN, TOTAL (test code = 2229) 7.1 G/DL ALBUMIN (test code = 2201) 4.6 G/DL CALC GLOBULIN (test code = 2240) 2.5 G/DL CALC A/G RATIO (test code = 2234) 1.8 RATIO BILIRUBIN, TOTAL (test code = 2207) 0.3 MG/DL ALKALINE PHOSPHATASE (test code = 2204) 63 U/L AST (test code = 2218) 14 U/L ALT (test code = 2219) 18 U/L Colby RankinHIV 1/2 4TH GEN, RFLX [id number] 00:00:00* Test Item Value Reference Range Interpretation Comme nts HIV 1/2 4TH GEN, RFLX CONF ( test code = 3514) NON-REACTIVE Colby RankinIRON BINDING CAPACITY AND IRON AND % [id number] 00:00:00* Test Item Value Reference Range Interpretation Comme nts IRON, SERUM (test code = 2222) 49 UG/DL UNSATURATED IBC (test code = 13276) 363 UG/DL CALC TOTAL IBC (test code = 2076) 412 UG/DL CALC % IRON SAT (test code = 2079) 12 % Colby RankinACUTE HEPATITIS [id number] 00:00:00* Test Item Value Reference Range Interpretation Comme nts HEPATITIS A IgM (test code = 30280) NON-REACTIVE HEPATITIS B CORE IgM (test c ode = 4644) NON-REACTIVE HEPATITIS B SURF AG (test co de = 2739) NON-REACTIVE HEPATITIS C ANTIBODY (test c ode = 4675) NON-REACTIVE INTERPRETATION HEPATITIS A: (test code = 2552) (NOTE) INTERPRETATION HEPATITIS B: (test code = 78376) (NOTE) INTERPRETATION HEPATITIS C: (test code = 97822) (NOTE) Colby Robles AUTOIMMUNE [id number] 00:00:00* Test Item Value Reference Range Interpretation Comme nts ANTI-NUCLEAR ANTIBODIES (laina t code = 3506) NEGATIVE ESHA PATTERN (REPORTED TITER) (test code = 32390) SEE BELOW HOMOGENEOUS (test code = 60178) NEGATIVE TITER SPECKLED (test code = 599748) NEGATIVE TITER DENSE FINE SPECKLED (test co de = 12294) NEGATIVE TITER CENTROMERE (test code = 985885) NEGATIVE TITER COARSE SPECKLED (test code = 212011) NEGATIVE TITER DISCRETE NUCLEAR DOTS (test code = 048077) NEGATIVE TITER NUCLEOLAR (test code = 707455) NEGATIVE TITER NUCLEAR MEMBRANE (test code = 916422) NEGATIVE TITER CYTO. RETICULAR (MARGARET) (test code = 477224) NEGATIVE COMMENTS (test code = 397226) NONE METHOD (test code = 81591) (NOTE) SJOGREN'S SS-A ANTIBODY (laina t code = 86257) <0.2 AI SJOGREN'S SS-B ANTIBODY (laina t code = 30071) <0.2 AI DUBON (Sm) ANTIBODY (test co de = 44414) <0.2 AI COMM[employer]ITY SUPPORT ASSOCIATE ANTIBODY (test code = 25768) <0.2 AI SCL-70 ANTIBODY (test code = 4606) <0.2 AI Divya-1 ANTIBODY (test code = 4680) <0.2 AI CENTROMERE B ANTIBODY (test code = 4630) <0.2 AI RIBOSOMAL P ANTIBODY (test code = 62226) <0.2 AI CHROMATIN ANTIBODY (test cod e = 22304) <0.2 AI THYROID PEROXIDASE AB (test code = 85256) 10 IU/ML COMPLEMENT C3 (test code = 3509) 152 MG/DL COMPLEMENT C4 (test code = 3510) 23 MG/DL RHEUMATOID FACTOR, QUANT (te st code = 3502) <10 IU/ML dsDNA ANTIBODY (test code = 4287) 1.0 IU/ML CCP IgG (test code = 14019) <0.5 U/ML Colby [id number] 00:00:00* Test Item Value Reference Range Interpretation Comme nts RPR RESULT (test code = 3501) NON-REACTIVE RPR TITER (test code = 3500) NOT INDIC. TITER Colby RankinFOLATE, [id number] 00:00:00* Test Item Value Reference Range Interpretation Comme nts HEMATOCRIT (test code = 1004) 35.4 % FOLATE, RBC (test code = 2690) 1000 NG/ML Colby RankinVITAMIN D, 25 [id number] 00:00:00* Test Item Value Reference Range Interpretation Comme nts VITAMIN D, 25 OH (test code = 4958) 16 NG/ML Colby RankinVITAMIN [id number] 00:00:00* Test Item Value Reference Range Interpretation Comme nts VITAMIN B-12 (test code = 2840) 762 PG/ML Colby RankinSEDIMENTATION [id number] 15:07:29* Test Item Value Reference Range Interpretation Comme nts SEDIMENTATION RATE (test cod e = 1017) 9 MM/HOUR 0-20 ESHA (ANTI-NUCLEAR AB) WITH REFLEX [id number] 13:00:38* Test Item Value Reference Range Interpretation Comme nts ANTI-NUCLEAR ANTIBODIES (test code = 3506) NEGATIVE NEGATIVE Methodology is I ndirect Immunofluorescent Assay (IFA) with a titering system using [id number] cells (Hep2 cells transfected with SS-A/Ro). HEMOGLOBIN [id number] 06:12:02* Test Item Value Reference Range Interpretation Comme nts HEMOGLOBIN A1c (test code = 10310) 6.1 % 4.2-5.6 H dsDNA [id number] 05:50:30* Test Item Value Reference Range Interpretation Comme nts dsDNA ANTIBODY (test code = 4287) 1.0 IU/ML SEE BELOW NEGATIVE . . . . . . . . . . . . . . IU/ML <=4.9 INDETERMINATE. . . . . . . . . . . . IU/ML 5.0-9.0 POSITIVE . . . . . . . . . . . . . . IU/ML >=10.0 UNLESS OTHERWISE INDICATED, ALL TESTING PERFORMED [facility] [address] [place] [address] [employer] BO[employer]: TALISHA CARPIO M.D. CLIA NUMBER [id number] [place]. [id number] RHEUMATOID FACTOR, [id number] 04:33:13* Test Item Value Reference Range Interpretation Comme nts RHEUMATOID FACTOR, QUANT ( st code = 3502) <10 IU/ML <14 COMPREHENSIVE METABOLIC [id number] 04:32:50* Test Item Value Reference Range Interpretation Comme nts GLUCOSE (test code = 2217) 112 MG/DL 70-99 H BUN (test code = 2208) 13 MG/DL 6-20 CREATININE (test code = 2214) 0.66 MG/DL 0.60-1.30 eGFR (2020 CKD-EPI) (test code = 84622) 119 ML/MIN/1.73 >60 CALC BUN/CREAT (test code = 2235) 20 RATIO 6-28 SODIUM (test code = 2231) 140 MEQ/L 133-146 POTASSIUM (test code = 2228) 4.4 MEQ/L 3.5-5.4 CHLORIDE (test code = 2215) 103 MEQ/L 95-107 CARBON DIOXIDE (test code = 220) 25 MEQ/L 19-31 CALCIUM (test code = 220) 9.5 MG/DL 8.5-10.5 PROTEIN, TOTAL (test code = 222) 6.7 G/DL 6.1-8.3 ALBUMIN (test code = 220) 4.2 G/DL 3.5-5.2 CALC GLOBULIN (test code = 2240) 2.5 G/DL 1.9-3.7 CALC A/G RATIO (test code = 2234) 1.7 RATIO 1.0-2.6 BILIRUBIN, TOTAL (test code = 2207) <0.2 MG/DL See_Comment [Automated me ssage] The system which generated this result transmitted reference range: <=1.2. The reference range was not used to interpret this result as normal/abnormal. ALKALINE PHOSPHATASE (test code = 2203) 76 U/L 40-114 AST (test code = 2218) 11 U/L 9-40 ALT (test code = 2219) 12 U/L 5-40 COMPREHENSIVE METABOLIC [id number] 00:00:00* Test Item Value Reference Range Interpretation Comme nts GLUCOSE (test code = 7) 112 MG/DL BUN (test code = 8) 13 MG/DL CREATININE (test code = 2214) 0.66 MG/DL eGFR (2020 CKD-EPI) (test code = 02300) 119 ML/MIN/1.73 CALC BUN/CREAT (test code = 2235) 20 RATIO SODIUM (test code = 2231) 140 MEQ/L POTASSIUM (test code = 2228) 4.4 MEQ/L CHLORIDE (test code = 2215) 103 MEQ/L CARBON DIOXIDE (test code = 6) 25 MEQ/L CALCIUM (test code = 2209) 9.5 MG/DL PROTEIN, TOTAL (test code = 2229) 6.7 G/DL ALBUMIN (test code = 2201) 4.2 G/DL CALC GLOBULIN (test code = 2240) 2.5 G/DL CALC A/G RATIO (test code = 2234) 1.7 RATIO BILIRUBIN, TOTAL (test code = 2207) <0.2 MG/DL ALKALINE PHOSPHATASE (test code = 2204) 76 U/L AST (test code = 2218) 11 U/L ALT (test code = 2219) 12 U/L Colby Robles (ANTI-NUCLEAR AB) WITH REFLEX [id number] 00:00:00* Test Item Value Reference Range Interpretation Comme nts ANTI-NUCLEAR ANTIBODIES (laina t code = 3506) NEGATIVE Colby RankinSEDIMENTATION [id number] 00:00:00* Test Item Value Reference Range Interpretation Comme nts SEDIMENTATION RATE (test cod e = 1017) 9 MM/HOUR Colby RankinRHEUMATOID FACTOR, [id number] 00:00:00* Test Item Value Reference Range Interpretation Comme claude RHEUMATOID FACTOR, QUANT (te st code = 3502) <10 IU/ML Colby RankinDNA DS [id number] 00:00:00* Test Item Value Reference Range Interpretation Comme nts dsDNA ANTIBODY (test code = 4287) 1.0 IU/ML Colby RankinHEMOGLOBIN [id number] 00:00:00* Test Item Value Reference Range Interpretation Comme claude HEMOGLOBIN A1c (test code = 09795) 6.1 % Colby RankinCOMPREHENSIVE METABOLIC [id number] 00:00:00* Test Item Value Reference Range Interpretation Comme nts GLUCOSE (test code = 2217) 112 MG/DL BUN (test code = 2208) 13 MG/DL CREATININE (test code = 2214) 0.66 MG/DL eGFR (2020 CKD-EPI) (test code = 66818) 119 ML/MIN/1.73 CALC BUN/CREAT (test code = 2235) 20 RATIO SODIUM (test code = 2231) 140 MEQ/L POTASSIUM (test code = 2228) 4.4 MEQ/L CHLORIDE (test code = 2215) 103 MEQ/L CARBON DIOXIDE (test code = 2206) 25 MEQ/L CALCIUM (test code = 2209) 9.5 MG/DL PROTEIN, TOTAL (test code = 2229) 6.7 G/DL ALBUMIN (test code = 2201) 4.2 G/DL CALC GLOBULIN (test code = 2240) 2.5 G/DL CALC A/G RATIO (test code = 2234) 1.7 RATIO BILIRUBIN, TOTAL (test code = 2207) <0.2 MG/DL ALKALINE PHOSPHATASE (test code = 2204) 76 U/L AST (test code = 2218) 11 U/L ALT (test code = 2219) 12 U/L Colby Robles (ANTI-NUCLEAR AB) WITH REFLEX [id number] 00:00:00* Test Item Value Reference Range Interpretation Comme claude ANTI-NUCLEAR ANTIBODIES (laina t code = 3506) NEGATIVE Colby RankinSEDIMENTATION [id number] 00:00:00* Test Item Value Reference Range Interpretation Comme nts SEDIMENTATION RATE (test cod e = 1017) 9 MM/HOUR Colby RankinRHEUMATOID FACTOR, [id number] 00:00:00* Test Item Value Reference Range Interpretation Comme claude RHEUMATOID FACTOR, QUANT (te st code = 3502) <10 IU/ML Colby RankinDNA DS [id number] 00:00:00* Test Item Value Reference Range Interpretation Comme claude dsDNA ANTIBODY (test code = 4287) 1.0 IU/ML Colby RankinHEMOGLOBIN [id number] 00:00:00* Test Item Value Reference Range Interpretation Comme claude HEMOGLOBIN A1c (test code = 19819) 6.1 % Colby RankinCOMPREHENSIVE METABOLIC [id number] 00:00:00* Test Item Value Reference Range Interpretation Comme nts GLUCOSE (test code = 2217) 112 MG/DL BUN (test code = 2208) 13 MG/DL CREATININE (test code = 2214) 0.66 MG/DL eGFR (2020 CKD-EPI) (test code = 12012) 119 ML/MIN/1.73 CALC BUN/CREAT (test code = 2235) 20 RATIO SODIUM (test code = 2231) 140 MEQ/L POTASSIUM (test code = 2228) 4.4 MEQ/L CHLORIDE (test code = 2215) 103 MEQ/L CARBON DIOXIDE (test code = 2206) 25 MEQ/L CALCIUM (test code = 2209) 9.5 MG/DL PROTEIN, TOTAL (test code = 2229) 6.7 G/DL ALBUMIN (test code = 2201) 4.2 G/DL CALC GLOBULIN (test code = 2240) 2.5 G/DL CALC A/G RATIO (test code = 2234) 1.7 RATIO BILIRUBIN, TOTAL (test code = 2207) <0.2 MG/DL ALKALINE PHOSPHATASE (test code = 2204) 76 U/L AST (test code = 2218) 11 U/L ALT (test code = 2219) 12 U/L Colby Robles (ANTI-NUCLEAR AB) WITH REFLEX [id number] 00:00:00* Test Item Value Reference Range Interpretation Comme claude ANTI-NUCLEAR ANTIBODIES (laina t code = 3506) NEGATIVE Colby RankinSEDIMENTATION [id number] 00:00:00* Test Item Value Reference Range Interpretation Comme nts SEDIMENTATION RATE (test cod e = 1017) 9 MM/HOUR Colby RankinRHEUMATOID FACTOR, [id number] 00:00:00* Test Item Value Reference Range Interpretation Comme claude RHEUMATOID FACTOR, QUANT (te st code = 3502) <10 IU/ML Colby RankinDNA DS [id number] 00:00:00* Test Item Value Reference Range Interpretation Comme nts dsDNA ANTIBODY (test code = 4287) 1.0 IU/ML Colby RankinHEMOGLOBIN [id number] 00:00:00* Test Item Value Reference Range Interpretation Comme claude HEMOGLOBIN A1c (test code = 95865) 6.1 % Colby RankinCOMPREHENSIVE METABOLIC [id number] 00:00:00* Test Item Value Reference Range Interpretation Comme nts GLUCOSE (test code = 2217) 112 MG/DL BUN (test code = 2208) 13 MG/DL CREATININE (test code = 2214) 0.66 MG/DL eGFR (2020 CKD-EPI) (test code = 77907) 119 ML/MIN/1.73 CALC BUN/CREAT (test code = 2235) 20 RATIO SODIUM (test code = 2231) 140 MEQ/L POTASSIUM (test code = 2228) 4.4 MEQ/L CHLORIDE (test code = 2215) 103 MEQ/L CARBON DIOXIDE (test code = 2206) 25 MEQ/L CALCIUM (test code = 2209) 9.5 MG/DL PROTEIN, TOTAL (test code = 2229) 6.7 G/DL ALBUMIN (test code = 2201) 4.2 G/DL CALC GLOBULIN (test code = 2240) 2.5 G/DL CALC A/G RATIO (test code = 2234) 1.7 RATIO BILIRUBIN, TOTAL (test code = 2207) <0.2 MG/DL ALKALINE PHOSPHATASE (test code = 2204) 76 U/L AST (test code = 2218) 11 U/L ALT (test code = 2219) 12 U/L Colby Robles (ANTI-NUCLEAR AB) WITH REFLEX [id number] 00:00:00* Test Item Value Reference Range Interpretation Comme claude ANTI-NUCLEAR ANTIBODIES (laina t code = 3506) NEGATIVE Colby RankinSEDIMENTATION [id number] 00:00:00* Test Item Value Reference Range Interpretation Comme nts SEDIMENTATION RATE (test cod e = 1017) 9 MM/HOUR Colby RankinRHEUMATOID FACTOR, [id number] 00:00:00* Test Item Value Reference Range Interpretation Comme claude RHEUMATOID FACTOR, QUANT (te st code = 3502) <10 IU/ML Colby RankinDNA DS [id number] 00:00:00* Test Item Value Reference Range Interpretation Comme nts dsDNA ANTIBODY (test code = 4287) 1.0 IU/ML Colby RankinHEMOGLOBIN [id number] 00:00:00* Test Item Value Reference Range Interpretation Comme claude HEMOGLOBIN A1c (test code = 83713) 6.1 % Colby RankinCOMPREHENSIVE METABOLIC [id number] 00:00:00* Test Item Value Reference Range Interpretation Comme nts GLUCOSE (test code = 2217) 112 MG/DL BUN (test code = 2208) 13 MG/DL CREATININE (test code = 2214) 0.66 MG/DL eGFR (2020 CKD-EPI) (test code = 35569) 119 ML/MIN/1.73 CALC BUN/CREAT (test code = 2235) 20 RATIO SODIUM (test code = 2231) 140 MEQ/L POTASSIUM (test code = 2228) 4.4 MEQ/L CHLORIDE (test code = 2215) 103 MEQ/L CARBON DIOXIDE (test code = 2206) 25 MEQ/L CALCIUM (test code = 2209) 9.5 MG/DL PROTEIN, TOTAL (test code = 2229) 6.7 G/DL ALBUMIN (test code = 2201) 4.2 G/DL CALC GLOBULIN (test code = 2240) 2.5 G/DL CALC A/G RATIO (test code = 2234) 1.7 RATIO BILIRUBIN, TOTAL (test code = 2207) <0.2 MG/DL ALKALINE PHOSPHATASE (test code = 2204) 76 U/L AST (test code = 2218) 11 U/L ALT (test code = 2219) 12 U/L Colby Robles (ANTI-NUCLEAR AB) WITH REFLEX [id number] 00:00:00* Test Item Value Reference Range Interpretation Comme claude ANTI-NUCLEAR ANTIBODIES (laina t code = 3506) NEGATIVE Colby RankinSEDIMENTATION [id number] 00:00:00* Test Item Value Reference Range Interpretation Comme claude SEDIMENTATION RATE (test cod e = 1017) 9 MM/HOUR Colby RankinRHEUMATOID FACTOR, [id number] 00:00:00* Test Item Value Reference Range Interpretation Comme claude RHEUMATOID FACTOR, QUANT (te st code = 3502) <10 IU/ML Colby RankinDNA DS [id number] 00:00:00* Test Item Value Reference Range Interpretation Comme claude dsDNA ANTIBODY (test code = 4287) 1.0 IU/ML Colby RankinHEMOGLOBIN [id number] 00:00:00* Test Item Value Reference Range Interpretation Comme claude HEMOGLOBIN A1c (test code = 89638) 6.1 % Colby RankinCOMPREHENSIVE METABOLIC [id number] 00:00:00* Test Item Value Reference Range Interpretation Comme nts GLUCOSE (test code = 2217) 112 MG/DL BUN (test code = 2208) 13 MG/DL CREATININE (test code = 2214) 0.66 MG/DL eGFR (2020 CKD-EPI) (test code = 11982) 119 ML/MIN/1.73 CALC BUN/CREAT (test code = 2235) 20 RATIO SODIUM (test code = 2231) 140 MEQ/L POTASSIUM (test code = 2228) 4.4 MEQ/L CHLORIDE (test code = 2215) 103 MEQ/L CARBON DIOXIDE (test code = 2206) 25 MEQ/L CALCIUM (test code = 2209) 9.5 MG/DL PROTEIN, TOTAL (test code = 2229) 6.7 G/DL ALBUMIN (test code = 2201) 4.2 G/DL CALC GLOBULIN (test code = 2240) 2.5 G/DL CALC A/G RATIO (test code = 2234) 1.7 RATIO BILIRUBIN, TOTAL (test code = 2207) <0.2 MG/DL ALKALINE PHOSPHATASE (test code = 2204) 76 U/L AST (test code = 2218) 11 U/L ALT (test code = 2219) 12 U/L Colby Robles (ANTI-NUCLEAR AB) WITH REFLEX [id number] 00:00:00* Test Item Value Reference Range Interpretation Comme claude ANTI-NUCLEAR ANTIBODIES (laina t code = 3506) NEGATIVE Colby RankinSEDIMENTATION [id number] 00:00:00* Test Item Value Reference Range Interpretation Comme nts SEDIMENTATION RATE (test cod e = 1017) 9 MM/HOUR Colby RankinRHEUMATOID FACTOR, [id number] 00:00:00* Test Item Value Reference Range Interpretation Comme claude RHEUMATOID FACTOR, QUANT (te st code = 3502) <10 IU/ML Colby RankinDNA DS [id number] 00:00:00* Test Item Value Reference Range Interpretation Comme nts dsDNA ANTIBODY (test code = 4287) 1.0 IU/ML Colby RankinHEMOGLOBIN [id number] 00:00:00* Test Item Value Reference Range Interpretation Comme claude HEMOGLOBIN A1c (test code = 82020) 6.1 % Colby RankinCOMPREHENSIVE METABOLIC [id number] 00:00:00* Test Item Value Reference Range Interpretation Comme nts GLUCOSE (test code = 2217) 112 MG/DL BUN (test code = 2208) 13 MG/DL CREATININE (test code = 2214) 0.66 MG/DL eGFR (2020 CKD-EPI) (test code = 61228) 119 ML/MIN/1.73 CALC BUN/CREAT (test code = 2235) 20 RATIO SODIUM (test code = 2231) 140 MEQ/L POTASSIUM (test code = 2228) 4.4 MEQ/L CHLORIDE (test code = 2215) 103 MEQ/L CARBON DIOXIDE (test code = 2206) 25 MEQ/L CALCIUM (test code = 2209) 9.5 MG/DL PROTEIN, TOTAL (test code = 2229) 6.7 G/DL ALBUMIN (test code = 2201) 4.2 G/DL CALC GLOBULIN (test code = 2240) 2.5 G/DL CALC A/G RATIO (test code = 2234) 1.7 RATIO BILIRUBIN, TOTAL (test code = 2207) <0.2 MG/DL ALKALINE PHOSPHATASE (test code = 2204) 76 U/L AST (test code = 2218) 11 U/L ALT (test code = 2219) 12 U/L Colby Robles (ANTI-NUCLEAR AB) WITH REFLEX [id number] 00:00:00* Test Item Value Reference Range Interpretation Comme claude ANTI-NUCLEAR ANTIBODIES (laina t code = 3506) NEGATIVE Colby RankinSEDIMENTATION [id number] 00:00:00* Test Item Value Reference Range Interpretation Comme claude SEDIMENTATION RATE (test cod e = 1017) 9 MM/HOUR Colby RankinRHEUMATOID FACTOR, [id number] 00:00:00* Test Item Value Reference Range Interpretation Comme claude RHEUMATOID FACTOR, QUANT (te st code = 3502) <10 IU/ML Colby RankinDNA DS [id number] 00:00:00* Test Item Value Reference Range Interpretation Comme claude dsDNA ANTIBODY (test code = 4287) 1.0 IU/ML Colby RankinHEMOGLOBIN [id number] 00:00:00* Test Item Value Reference Range Interpretation Comme claude HEMOGLOBIN A1c (test code = 72550) 6.1 % Colby RankinHEMOGLOBIN [id number] 04:22:50* Test Item Value Reference Range Interpretation Comme claude HEMOGLOBIN A1c (test code = 36180) 6.4 % 4.2-5.6 H CBC W/AUTO DIFF WITH [id number] 03:57:11* Test Item Value Reference Range Interpretation Comme claude WBC (test code = 1001) 5.6 K/UL 3.5-11.0 RBC (test code = 1002) 4.84 M/UL 3.80-5.40 HEMOGLOBIN (test code = 1003) 11.2 G/DL 11.5-15.5 L HEMATOCRIT (test code = 1004) 35.2 % 34.0-45.0 MCV (test code = 1005) 72.7 fL 80.0-99.0 L MCH (test code = 1006) 23.1 PG 25.0-33.0 L MCHC (test code = 1007) 31.8 G/DL 31.0-36.0 RDW (test code = 1038) 15.3 % 11.5-15.0 H NEUTROPHILS (test code = 1008) 47.9 % NOTE: EFFECTIVE 10/15/2021, REFERENCE INTERVALS AND FLAGGING FORRELATIVE (%) WBC DIFFERENTIAL WILL BE ELIMINATED REDUNDANT TOABSOLUTE COUNTS.SEE [email or web address] LYMPHOCYTES (test code = 1010) 41.0 % MONOCYTES (test code = 1011) 5.9 % EOSINOPHILS (test code = 1012) 4.0 % BASOPHILS (test code = 1013) 0.7 % IMMATURE GRANYLOCYTES (test code = 1036) 0.5 % NUCLEATED RBCS (test code = 1065) 0.0 /100 WBC'S See_Comment [Automated message] The system which generated this result transmitted reference range: 0.0. The reference range was not used to interpret this result as normal/abnormal. PLATELET COUNT (test code = 1015) 289 K/UL 130-400 ABSOLUTE NEUTROPHILS (test code = 1066) 2.66 K/UL 1.50-7.50 ABSOLUTE LYMPHOCYTES (test code = 1067) 2.28 K/UL 1.00-4.00 ABSOLUTE MONOCYTES (test code = 1068) 0.33 K/UL 0.20-1.00 ABSOLUTE EOSINOPHILS (test code = 1040) 0.22 K/UL 0.00-0.50 ABSOLUTE BASOPHILS (test code = 1069) 0.04 K/UL 0.00-0.20 ABS IMMATURE GRANULOCYTES (test code = 1020) 0.03 K/UL 0.00-0.10 ABS NUCLEATED RBCS (test code = 86550) 0.00 K/UL 0.00-0.11 UNLESS OTHER SCHMID INDICATED, ALL TESTING [facility]MED [facility] [address] [place] [address] [employer] P[employer] BOAT: TALISHA CARPIO M.D. CLIA NUMBER [id number] [facility] [place]. [id number] CBC W/AUTO [id number] 00:00:00* Test Item Value Reference Range Interpretation Comme nts WBC (test code = 1001) 5.6 K/UL RBC (test code = 1002) 4.84 M/UL HEMOGLOBIN (test code = 1003) 11.2 G/DL HEMATOCRIT (test code = 1004) 35.2 % MCV (test code = 1005) 72.7 fL MCH (test code = 1006) 23.1 PG MCHC (test code = 1007) 31.8 G/DL RDW (test code = 1038) 15.3 % NEUTROPHILS (test code = 1008) 47.9 % LYMPHOCYTES (test code = 1010) 41.0 % MONOCYTES (test code = 1011) 5.9 % EOSINOPHILS (test code = 1012) 4.0 % BASOPHILS (test code = 1013) 0.7 % IMMATURE GRANYLOCYTES (test code = 1036) 0.5 % NUCLEATED RBCS (test code = 1065) 0.0 /100WBC'S PLATELET COUNT (test code = 1015) 289 K/UL ABSOLUTE NEUTROPHILS (test c ode = 1066) 2.66 K/UL ABSOLUTE LYMPHOCYTES (test c ode = 1067) 2.28 K/UL ABSOLUTE MONOCYTES (test cod e = 1068) 0.33 K/UL ABSOLUTE EOSINOPHILS (test c ode = 1040) 0.22 K/UL ABSOLUTE BASOPHILS (test cod e = 1069) 0.04 K/UL ABS IMMATURE GRANULOCYTES (t est code = 1020) 0.03 K/UL ABS NUCLEATED RBCS (test cod e = 46792) 0.00 K/UL Colby RankinHEMOGLOBIN [id number] 00:00:00* Test Item Value Reference Range Interpretation Comme nts HEMOGLOBIN A1c (test code = 85598) 6.4 % Colby RankinCBC W/AUTO [id number] 00:00:00* Test Item Value Reference Range Interpretation Comme nts WBC (test code = 1001) 5.6 K/UL RBC (test code = 1002) 4.84 M/UL HEMOGLOBIN (test code = 1003) 11.2 G/DL HEMATOCRIT (test code = 1004) 35.2 % MCV (test code = 1005) 72.7 fL MCH (test code = 1006) 23.1 PG MCHC (test code = 1007) 31.8 G/DL RDW (test code = 1038) 15.3 % NEUTROPHILS (test code = 1008) 47.9 % LYMPHOCYTES (test code = 1010) 41.0 % MONOCYTES (test code = 1011) 5.9 % EOSINOPHILS (test code = 1012) 4.0 % BASOPHILS (test code = 1013) 0.7 % IMMATURE GRANYLOCYTES (test code = 1036) 0.5 % NUCLEATED RBCS (test code = 1065) 0.0 /100WBC'S PLATELET COUNT (test code = 1015) 289 K/UL ABSOLUTE NEUTROPHILS (test c ode = 1066) 2.66 K/UL ABSOLUTE LYMPHOCYTES (test c ode = 1067) 2.28 K/UL ABSOLUTE MONOCYTES (test cod e = 1068) 0.33 K/UL ABSOLUTE EOSINOPHILS (test c ode = 1040) 0.22 K/UL ABSOLUTE BASOPHILS (test cod e = 1069) 0.04 K/UL ABS IMMATURE GRANULOCYTES (t est code = 1020) 0.03 K/UL ABS NUCLEATED RBCS (test cod e = 23409) 0.00 K/UL Colby RankinHEMOGLOBIN [id number] 00:00:00* Test Item Value Reference Range Interpretation Comme nts HEMOGLOBIN A1c (test code = 20136) 6.4 % Colby RankinCBC W/AUTO [id number] 00:00:00* Test Item Value Reference Range Interpretation Comme nts WBC (test code = 1001) 5.6 K/UL RBC (test code = 1002) 4.84 M/UL HEMOGLOBIN (test code = 1003) 11.2 G/DL HEMATOCRIT (test code = 1004) 35.2 % MCV (test code = 1005) 72.7 fL MCH (test code = 1006) 23.1 PG MCHC (test code = 1007) 31.8 G/DL RDW (test code = 1038) 15.3 % NEUTROPHILS (test code = 1008) 47.9 % LYMPHOCYTES (test code = 1010) 41.0 % MONOCYTES (test code = 1011) 5.9 % EOSINOPHILS (test code = 1012) 4.0 % BASOPHILS (test code = 1013) 0.7 % IMMATURE GRANYLOCYTES (test code = 1036) 0.5 % NUCLEATED RBCS (test code = 1065) 0.0 /100WBC'S PLATELET COUNT (test code = 1015) 289 K/UL ABSOLUTE NEUTROPHILS (test c ode = 1066) 2.66 K/UL ABSOLUTE LYMPHOCYTES (test c ode = 1067) 2.28 K/UL ABSOLUTE MONOCYTES (test cod e = 1068) 0.33 K/UL ABSOLUTE EOSINOPHILS (test c ode = 1040) 0.22 K/UL ABSOLUTE BASOPHILS (test cod e = 1069) 0.04 K/UL ABS IMMATURE GRANULOCYTES (t est code = 1020) 0.03 K/UL ABS NUCLEATED RBCS (test cod e = 71612) 0.00 K/UL Colby RankinHEMOGLOBIN [id number] 00:00:00* Test Item Value Reference Range Interpretation Comme nts HEMOGLOBIN A1c (test code = 81479) 6.4 % Colby RankinCBC W/AUTO [id number] 00:00:00* Test Item Value Reference Range Interpretation Comme nts WBC (test code = 1001) 5.6 K/UL RBC (test code = 1002) 4.84 M/UL HEMOGLOBIN (test code = 1003) 11.2 G/DL HEMATOCRIT (test code = 1004) 35.2 % MCV (test code = 1005) 72.7 fL MCH (test code = 1006) 23.1 PG MCHC (test code = 1007) 31.8 G/DL RDW (test code = 1038) 15.3 % NEUTROPHILS (test code = 1008) 47.9 % LYMPHOCYTES (test code = 1010) 41.0 % MONOCYTES (test code = 1011) 5.9 % EOSINOPHILS (test code = 1012) 4.0 % BASOPHILS (test code = 1013) 0.7 % IMMATURE GRANYLOCYTES (test code = 1036) 0.5 % NUCLEATED RBCS (test code = 1065) 0.0 /100WBC'S PLATELET COUNT (test code = 1015) 289 K/UL ABSOLUTE NEUTROPHILS (test c ode = 1066) 2.66 K/UL ABSOLUTE LYMPHOCYTES (test c ode = 1067) 2.28 K/UL ABSOLUTE MONOCYTES (test cod e = 1068) 0.33 K/UL ABSOLUTE EOSINOPHILS (test c ode = 1040) 0.22 K/UL ABSOLUTE BASOPHILS (test cod e = 1069) 0.04 K/UL ABS IMMATURE GRANULOCYTES (t est code = 1020) 0.03 K/UL ABS NUCLEATED RBCS (test cod e = 55908) 0.00 K/UL [facility] [place] [id number] 00:00:00* Test Item Value Reference Range Interpretation Comme nts HEMOGLOBIN A1c (test code = 36623) 6.4 % [facility]ran AustinCBC W/AUTO [id number] 00:00:00* Test Item Value Reference Range Interpretation Comme nts WBC (test code = 1001) 5.6 K/UL RBC (test code = 1002) 4.84 M/UL HEMOGLOBIN (test code = 1003) 11.2 G/DL HEMATOCRIT (test code = 1004) 35.2 % MCV (test code = 1005) 72.7 fL MCH (test code = 1006) 23.1 PG MCHC (test code = 1007) 31.8 G/DL RDW (test code = 1038) 15.3 % NEUTROPHILS (test code = 1008) 47.9 % LYMPHOCYTES (test code = 1010) 41.0 % MONOCYTES (test code = 1011) 5.9 % EOSINOPHILS (test code = 1012) 4.0 % BASOPHILS (test code = 1013) 0.7 % IMMATURE GRANYLOCYTES (test code = 1036) 0.5 % NUCLEATED RBCS (test code = 1065) 0.0 /100WBC'S PLATELET COUNT (test code = 1015) 289 K/UL ABSOLUTE NEUTROPHILS (test c ode = 1066) 2.66 K/UL ABSOLUTE LYMPHOCYTES (test c ode = 1067) 2.28 K/UL ABSOLUTE MONOCYTES (test cod e = 1068) 0.33 K/UL ABSOLUTE EOSINOPHILS (test c ode = 1040) 0.22 K/UL ABSOLUTE BASOPHILS (test cod e = 1069) 0.04 K/UL ABS IMMATURE GRANULOCYTES (t est code = 1020) 0.03 K/UL ABS NUCLEATED RBCS (test cod e = 71368) 0.00 K/UL [facility] [place] [id number] 00:00:00* Test Item Value Reference Range Interpretation Comme nts HEMOGLOBIN A1c (test code = 02928) 6.4 % [facility] [place]CBC W/AUTO [id number] 00:00:00* Test Item Value Reference Range Interpretation Comme nts WBC (test code = 1001) 5.6 K/UL RBC (test code = 1002) 4.84 M/UL HEMOGLOBIN (test code = 1003) 11.2 G/DL HEMATOCRIT (test code = 1004) 35.2 % MCV (test code = 1005) 72.7 fL MCH (test code = 1006) 23.1 PG MCHC (test code = 1007) 31.8 G/DL RDW (test code = 1038) 15.3 % NEUTROPHILS (test code = 1008) 47.9 % LYMPHOCYTES (test code = 1010) 41.0 % MONOCYTES (test code = 1011) 5.9 % EOSINOPHILS (test code = 1012) 4.0 % BASOPHILS (test code = 1013) 0.7 % IMMATURE GRANYLOCYTES (test code = 1036) 0.5 % NUCLEATED RBCS (test code = 1065) 0.0 /100WBC'S PLATELET COUNT (test code = 1015) 289 K/UL ABSOLUTE NEUTROPHILS (test c ode = 1066) 2.66 K/UL ABSOLUTE LYMPHOCYTES (test c ode = 1067) 2.28 K/UL ABSOLUTE MONOCYTES (test cod e = 1068) 0.33 K/UL ABSOLUTE EOSINOPHILS (test c ode = 1040) 0.22 K/UL ABSOLUTE BASOPHILS (test cod e = 1069) 0.04 K/UL ABS IMMATURE GRANULOCYTES (t est code = 1020) 0.03 K/UL ABS NUCLEATED RBCS (test cod e = 01615) 0.00 K/UL [facility] [place] [id number] 00:00:00* Test Item Value Reference Range Interpretation Comme nts HEMOGLOBIN A1c (test code = 96806) 6.4 % [facility]CBC W/AUTO [id number] 00:00:00* Test Item Value Reference Range Interpretation Comme nts WBC (test code = 1001) 5.6 K/UL RBC (test code = 1002) 4.84 M/UL HEMOGLOBIN (test code = 1003) 11.2 G/DL HEMATOCRIT (test code = 1004) 35.2 % MCV (test code = 1005) 72.7 fL MCH (test code = 1006) 23.1 PG MCHC (test code = 1007) 31.8 G/DL RDW (test code = 1038) 15.3 % NEUTROPHILS (test code = 1008) 47.9 % LYMPHOCYTES (test code = 1010) 41.0 % MONOCYTES (test code = 1011) 5.9 % EOSINOPHILS (test code = 1012) 4.0 % BASOPHILS (test code = 1013) 0.7 % IMMATURE GRANYLOCYTES (test code = 1036) 0.5 % NUCLEATED RBCS (test code = 1065) 0.0 /100WBC'S PLATELET COUNT (test code = 1015) 289 K/UL ABSOLUTE NEUTROPHILS (test c ode = 1066) 2.66 K/UL ABSOLUTE LYMPHOCYTES (test c ode = 1067) 2.28 K/UL ABSOLUTE MONOCYTES (test cod e = 1068) 0.33 K/UL ABSOLUTE EOSINOPHILS (test c ode = 1040) 0.22 K/UL ABSOLUTE BASOPHILS (test cod e = 1069) 0.04 K/UL ABS IMMATURE GRANULOCYTES (t est code = 1020) 0.03 K/UL ABS NUCLEATED RBCS (test cod e = 42751) 0.00 K/UL Colby RankinHEMOGLOBIN [id number] 00:00:00* Test Item Value Reference Range Interpretation Comme nts HEMOGLOBIN A1c (test code = 00372) 6.4 % Colby RankinCOMPREHENSIVE METABOLIC [id number] 02:14:03* Test Item Value Reference Range Interpretation Comme nts GLUCOSE (test code = 2217) 120 MG/DL 70-99 H BUN (test code = 2208) 9 MG/DL 6-20 CREATININE (test code = 2214) 0.73 MG/DL 0.60-1.30 EFFECTIVE 11/05/2021, [facility] HAS IMPLEMENTED THE NKF-ASN RECOMMENDED KD-EPI EGFR REFIT CALCULATION THAT DOES NOT INCLUDE A COEFFICIENT FORRACE. FOR MORE INFORMATION, SEE ANNOUNCEMENT [email or web address] (2020 CKD-EPI) (test code = 94756) 113 ML/MIN/1.73 >60 CALC BUN/CREAT (test code = 2235) 12 RATIO 6-28 SODIUM (test code = 223) 141 MEQ/L 133-146 POTASSIUM (test code = 2228) 4.2 MEQ/L 3.5-5.4 CHLORIDE (test code = 2215) 103 MEQ/L 95-107 CARBON DIOXIDE (test code = 2206) 24 MEQ/L 19-31 CALCIUM (test code = 2209) 9.7 MG/DL 8.5-10.5 PROTEIN, TOTAL (test code = 2229) 7.5 G/DL 6.1-8.3 ALBUMIN (test code = 2201) 4.6 G/DL 3.5-5.2 CALC GLOBULIN (test code = 2240) 2.9 G/DL 1.9-3.7 CALC A/G RATIO (test code = 2234) 1.6 RATIO 1.0-2.6 BILIRUBIN, TOTAL (test code = 2207) 0.3 MG/DL See_Comment [Automated me ssage] The system which generated this result transmitted reference range: <=1.2. The reference range was not used to interpret this result as normal/abnormal. ALKALINE PHOSPHATASE (test code = 2203) 91 U/L 40-114 AST (test code = 2218) 19 U/L 9-40 ALT (test code = 2219) 21 U/L 5-40 COMPREHENSIVE METABOLIC [id number] 00:00:00* Test Item Value Reference Range Interpretation Comme nts GLUCOSE (test code = 2217) 120 MG/DL BUN (test code = 8) 9 MG/DL CREATININE (test code = 2214) 0.73 MG/DL eGFR (2020 CKD-EPI) (test code = 89742) 113 ML/MIN/1.73 CALC BUN/CREAT (test code = 2235) 12 RATIO SODIUM (test code = 2231) 141 MEQ/L POTASSIUM (test code = 2228) 4.2 MEQ/L CHLORIDE (test code = 2215) 103 MEQ/L CARBON DIOXIDE (test code = 2206) 24 MEQ/L CALCIUM (test code = 2209) 9.7 MG/DL PROTEIN, TOTAL (test code = 2229) 7.5 G/DL ALBUMIN (test code = 2201) 4.6 G/DL CALC GLOBULIN (test code = 2240) 2.9 G/DL CALC A/G RATIO (test code = 2234) 1.6 RATIO BILIRUBIN, TOTAL (test code = 2207) 0.3 MG/DL ALKALINE PHOSPHATASE (test code = 4) 91 U/L AST (test code = 2218) 19 U/L ALT (test code = 2219) 21 U/L Colby RankinCOMPREHENSIVE METABOLIC [id number] 00:00:00* Test Item Value Reference Range Interpretation Comme nts GLUCOSE (test code = 2217) 120 MG/DL BUN (test code = 2208) 9 MG/DL CREATININE (test code = 2214) 0.73 MG/DL eGFR (2020 CKD-EPI) (test code = 29308) 113 ML/MIN/1.73 CALC BUN/CREAT (test code = 2235) 12 RATIO SODIUM (test code = 2231) 141 MEQ/L POTASSIUM (test code = 2228) 4.2 MEQ/L CHLORIDE (test code = 2215) 103 MEQ/L CARBON DIOXIDE (test code = 2206) 24 MEQ/L CALCIUM (test code = 2209) 9.7 MG/DL PROTEIN, TOTAL (test code = 2229) 7.5 G/DL ALBUMIN (test code = 2201) 4.6 G/DL CALC GLOBULIN (test code = 2240) 2.9 G/DL CALC A/G RATIO (test code = 2234) 1.6 RATIO BILIRUBIN, TOTAL (test code = 2207) 0.3 MG/DL ALKALINE PHOSPHATASE (test code = 2204) 91 U/L AST (test code = 2218) 19 U/L ALT (test code = 2219) 21 U/L Colby RankinCOMPREHENSIVE METABOLIC [id number] 00:00:00* Test Item Value Reference Range Interpretation Comme nts GLUCOSE (test code = 2217) 120 MG/DL BUN (test code = 2208) 9 MG/DL CREATININE (test code = 2214) 0.73 MG/DL eGFR (2020 CKD-EPI) (test code = 86589) 113 ML/MIN/1.73 CALC BUN/CREAT (test code = 2235) 12 RATIO SODIUM (test code = 2231) 141 MEQ/L POTASSIUM (test code = 2228) 4.2 MEQ/L CHLORIDE (test code = 2215) 103 MEQ/L CARBON DIOXIDE (test code = 2206) 24 MEQ/L CALCIUM (test code = 2209) 9.7 MG/DL PROTEIN, TOTAL (test code = 2229) 7.5 G/DL ALBUMIN (test code = 2201) 4.6 G/DL CALC GLOBULIN (test code = 2240) 2.9 G/DL CALC A/G RATIO (test code = 2234) 1.6 RATIO BILIRUBIN, TOTAL (test code = 2207) 0.3 MG/DL ALKALINE PHOSPHATASE (test code = 2204) 91 U/L AST (test code = 2218) 19 U/L ALT (test code = 2219) 21 U/L Colby F AustinCOMPREHENSIVE METABOLIC [id number] 00:00:00* Test Item Value Reference Range Interpretation Comme nts GLUCOSE (test code = 2217) 120 MG/DL BUN (test code = 2208) 9 MG/DL CREATININE (test code = 2214) 0.73 MG/DL eGFR (2020 CKD-EPI) (test code = 19141) 113 ML/MIN/1.73 CALC BUN/CREAT (test code = 2235) 12 RATIO SODIUM (test code = 2231) 141 MEQ/L POTASSIUM (test code = 2228) 4.2 MEQ/L CHLORIDE (test code = 2215) 103 MEQ/L CARBON DIOXIDE (test code = 2206) 24 MEQ/L CALCIUM (test code = 2209) 9.7 MG/DL PROTEIN, TOTAL (test code = 2229) 7.5 G/DL ALBUMIN (test code = 2201) 4.6 G/DL CALC GLOBULIN (test code = 2240) 2.9 G/DL CALC A/G RATIO (test code = 2234) 1.6 RATIO BILIRUBIN, TOTAL (test code = 2207) 0.3 MG/DL ALKALINE PHOSPHATASE (test code = 2204) 91 U/L AST (test code = 2218) 19 U/L ALT (test code = 2219) 21 U/L Colby F AustinCOMPREHENSIVE METABOLIC [id number] 00:00:00* Test Item Value Reference Range Interpretation Comme nts GLUCOSE (test code = 2217) 120 MG/DL BUN (test code = 2208) 9 MG/DL CREATININE (test code = 2214) 0.73 MG/DL eGFR (2020 CKD-EPI) (test code = 24251) 113 ML/MIN/1.73 CALC BUN/CREAT (test code = 2235) 12 RATIO SODIUM (test code = 2231) 141 MEQ/L POTASSIUM (test code = 2228) 4.2 MEQ/L CHLORIDE (test code = 2215) 103 MEQ/L CARBON DIOXIDE (test code = 2206) 24 MEQ/L CALCIUM (test code = 2209) 9.7 MG/DL PROTEIN, TOTAL (test code = 2229) 7.5 G/DL ALBUMIN (test code = 2201) 4.6 G/DL CALC GLOBULIN (test code = 2240) 2.9 G/DL CALC A/G RATIO (test code = 2234) 1.6 RATIO BILIRUBIN, TOTAL (test code = 2207) 0.3 MG/DL ALKALINE PHOSPHATASE (test code = 2204) 91 U/L AST (test code = 2218) 19 U/L ALT (test code = 2219) 21 U/L Colby F TraverCOMPREHENSIVE METABOLIC [id number] 00:00:00* Test Item Value Reference Range Interpretation Comme nts GLUCOSE (test code = 2217) 120 MG/DL BUN (test code = 2208) 9 MG/DL CREATININE (test code = 2214) 0.73 MG/DL eGFR (2020 CKD-EPI) (test code = 14980) 113 ML/MIN/1.73 CALC BUN/CREAT (test code = 2235) 12 RATIO SODIUM (test code = 2231) 141 MEQ/L POTASSIUM (test code = 2228) 4.2 MEQ/L CHLORIDE (test code = 2215) 103 MEQ/L CARBON DIOXIDE (test code = 2206) 24 MEQ/L CALCIUM (test code = 2209) 9.7 MG/DL PROTEIN, TOTAL (test code = 2229) 7.5 G/DL ALBUMIN (test code = 2201) 4.6 G/DL CALC GLOBULIN (test code = 2240) 2.9 G/DL CALC A/G RATIO (test code = 2234) 1.6 RATIO BILIRUBIN, TOTAL (test code = 2207) 0.3 MG/DL ALKALINE PHOSPHATASE (test code = 2204) 91 U/L AST (test code = 2218) 19 U/L ALT (test code = 2219) 21 U/L Colby F AustinCOMPREHENSIVE METABOLIC [id number] 00:00:00* Test Item Value Reference Range Interpretation Comme nts GLUCOSE (test code = 2217) 120 MG/DL BUN (test code = 2208) 9 MG/DL CREATININE (test code = 2214) 0.73 MG/DL eGFR (2020 CKD-EPI) (test code = ) 113 ML/MIN/1.73 CALC BUN/CREAT (test code = 223) 12 RATIO SODIUM (test code = 223) 141 MEQ/L POTASSIUM (test code = 2228) 4.2 MEQ/L CHLORIDE (test code = 2215) 103 MEQ/L CARBON DIOXIDE (test code = 2206) 24 MEQ/L CALCIUM (test code = 2209) 9.7 MG/DL PROTEIN, TOTAL (test code = 222) 7.5 G/DL ALBUMIN (test code = 220) 4.6 G/DL CALC GLOBULIN (test code = 2240) 2.9 G/DL CALC A/G RATIO (test code = 2234) 1.6 RATIO BILIRUBIN, TOTAL (test code = 7) 0.3 MG/DL ALKALINE PHOSPHATASE (test code = 2203) 91 U/L AST (test code = 221) 19 U/L ALT (test code = 2219) 21 U/L Colby Cochran [facility] W/AUTO DIFF WITH [id number] 13:36:08* Test Item Value Reference Range Interpretation Comme nts WBC (test code = 1001) TEST NOT PERFORMED K/UL 3.5-11.0 Unable to perform testing, specimen clotted.Charges adjusted as applicable. RBC (test code = 1002) TEST NOT PERFORMED M/UL 3.80-5.40 HEMOGLOBIN (test code = 1003) TEST NOT PERFORMED G/DL 11.5-15.5 HEMATOCRIT (test code = 1004) TEST NOT PERFORMED % 34.0-45.0 MCV (test code = 1005) TEST NOT PERFORMED fL 80.0-99.0 MCH (test code = 1006) TEST NOT PERFORMED PG 25.0-33.0 MCHC (test code = 1007) TEST NOT PERFORMED G/DL 31.0-36.0 RDW (test code = 1038) TEST NOT PERFORMED % 11.5-15.0 NEUTROPHILS (test code = 1008) TEST NOT PERFORMED % NOTE: EFFECTIVE 10/15/2021, REFERENCE INTERVALS AND FLAGGING FORRELATIVE (%) WBC DIFFERENTIAL WILL BE ELIMINATED REDUNDANT TOABSOLUTE COUNTS.SEE [email or web address] te LYMPHOCYTES (test code = 1010) TEST NOT PERFORMED % MONOCYTES (test code = 1011) TEST NOT PERFORMED % EOSINOPHILS (test code = 1012) TEST NOT PERFORMED % BASOPHILS (test code = 1013) TEST NOT PERFORMED % PLATELET COUNT (test code = 1015) TEST NOT PERFORMED K/UL 130-400 ABSOLUTE NEUTROPHILS (test code = 1066) TEST NOT PERFORMED K/UL 1.50-7.50 ABSOLUTE LYMPHOCYTES (test code = 1067) TEST NOT PERFORMED K/UL 1.00-4.00 ABSOLUTE MONOCYTES (test code = 1068) TEST NOT PERFORMED K/UL 0.20-1.00 ABSOLUTE EOSINOPHILS (test code = 1040) TEST NOT PERFORMED K/UL 0.00-0.50 ABSOLUTE BASOPHILS (test code = 1069) TEST NOT PERFORMED K/UL 0.00-0.20 UNLESS OTHERWISE INDICATED, ALL TESTING PERFORMED [facility] [employer] [address] [place] [id number] [employer] BOAT: TALISHA CARPIO M.D. CLIA NUMBER [id number] [facility] [place]. [id number] CBC W/AUTO [id number] 00:00:00* Test Item Value Reference Range Interpretation Comme nts WBC (test code = 1001) TEST NOT PERFORME D K/UL RBC (test code = 1002) TEST NOT PERFORME D M/UL HEMOGLOBIN (test code = 1003) TEST NOT PERFORMED G/DL HEMATOCRIT (test code = 1004) TEST NOT PERFORMED % MCV (test code = 1005) TEST NOT PERFORMED fL MCH (test code = 1006) TEST NOT PERFORMED PG MCHC (test code = 1007) TEST NOT PERFORM ED G/DL RDW (test code = 1038) TEST NOT PERFORMED % NEUTROPHILS (test code = 1008) TEST NOT PERFORMED % LYMPHOCYTES (test code = 1010) TEST NOT PERFORMED % MONOCYTES (test code = 1011) TEST NOT PERFORMED % EOSINOPHILS (test code = 1012) TEST NOT PERFORMED % BASOPHILS (test code = 1013) TEST NOT PERFORMED % PLATELET COUNT (test code = 1015) TEST NOT PERFORMED K/UL ABSOLUTE NEUTROPHILS (test code = 1066) TEST NOT PERFORMED K/UL ABSOLUTE LYMPHOCYTES (test code = 1067) TEST NOT PERFORMED K/UL ABSOLUTE MONOCYTES (test code = 1068) TEST NOT PERFORMED K/UL ABSOLUTE EOSINOPHILS (test code = 1040) TEST NOT PERFORMED K/UL ABSOLUTE BASOPHILS (test code = 1069) TEST NOT PERFORMED K/UL Colby F AustinCBC W/AUTO [id number] 00:00:00* Test Item Value Reference Range Interpretation Comme nts WBC (test code = 1001) TEST NOT PERFORME D K/UL RBC (test code = 1002) TEST NOT PERFORME D M/UL HEMOGLOBIN (test code = 1003) TEST NOT PERFORMED G/DL HEMATOCRIT (test code = 1004) TEST NOT PERFORMED % MCV (test code = 1005) TEST NOT PERFORMED fL MCH (test code = 1006) TEST NOT PERFORMED PG MCHC (test code = 1007) TEST NOT PERFORM ED G/DL RDW (test code = 1038) TEST NOT PERFORMED % NEUTROPHILS (test code = 1008) TEST NOT PERFORMED % LYMPHOCYTES (test code = 1010) TEST NOT PERFORMED % MONOCYTES (test code = 1011) TEST NOT PERFORMED % EOSINOPHILS (test code = 1012) TEST NOT PERFORMED % BASOPHILS (test code = 1013) TEST NOT PERFORMED % PLATELET COUNT (test code = 1015) TEST NOT PERFORMED K/UL ABSOLUTE NEUTROPHILS (test code = 1066) TEST NOT PERFORMED K/UL ABSOLUTE LYMPHOCYTES (test code = 1067) TEST NOT PERFORMED K/UL ABSOLUTE MONOCYTES (test code = 1068) TEST NOT PERFORMED K/UL ABSOLUTE EOSINOPHILS (test code = 1040) TEST NOT PERFORMED K/UL ABSOLUTE BASOPHILS (test code = 1069) TEST NOT PERFORMED K/UL Colby F AustinCBC W/AUTO [id number] 00:00:00* Test Item Value Reference Range Interpretation Comme nts WBC (test code = 1001) TEST NOT PERFORME D K/UL RBC (test code = 1002) TEST NOT PERFORME D M/UL HEMOGLOBIN (test code = 1003) TEST NOT PERFORMED G/DL HEMATOCRIT (test code = 1004) TEST NOT PERFORMED % MCV (test code = 1005) TEST NOT PERFORMED fL MCH (test code = 1006) TEST NOT PERFORMED PG MCHC (test code = 1007) TEST NOT PERFORM ED G/DL RDW (test code = 1038) TEST NOT PERFORMED % NEUTROPHILS (test code = 1008) TEST NOT PERFORMED % LYMPHOCYTES (test code = 1010) TEST NOT PERFORMED % MONOCYTES (test code = 1011) TEST NOT PERFORMED % EOSINOPHILS (test code = 1012) TEST NOT PERFORMED % BASOPHILS (test code = 1013) TEST NOT PERFORMED % PLATELET COUNT (test code = 1015) TEST NOT PERFORMED K/UL ABSOLUTE NEUTROPHILS (test code = 1066) TEST NOT PERFORMED K/UL ABSOLUTE LYMPHOCYTES (test code = 1067) TEST NOT PERFORMED K/UL ABSOLUTE MONOCYTES (test code = 1068) TEST NOT PERFORMED K/UL ABSOLUTE EOSINOPHILS (test code = 1040) TEST NOT PERFORMED K/UL ABSOLUTE BASOPHILS (test code = 1069) TEST NOT PERFORMED K/UL Colby F AustinCBC W/AUTO [id number] 00:00:00* Test Item Value Reference Range Interpretation Comme nts WBC (test code = 1001) TEST NOT PERFORME D K/UL RBC (test code = 1002) TEST NOT PERFORME D M/UL HEMOGLOBIN (test code = 1003) TEST NOT PERFORMED G/DL HEMATOCRIT (test code = 1004) TEST NOT PERFORMED % MCV (test code = 1005) TEST NOT PERFORMED fL MCH (test code = 1006) TEST NOT PERFORMED PG MCHC (test code = 1007) TEST NOT PERFORM ED G/DL RDW (test code = 1038) TEST NOT PERFORMED % NEUTROPHILS (test code = 1008) TEST NOT PERFORMED % LYMPHOCYTES (test code = 1010) TEST NOT PERFORMED % MONOCYTES (test code = 1011) TEST NOT PERFORMED % EOSINOPHILS (test code = 1012) TEST NOT PERFORMED % BASOPHILS (test code = 1013) TEST NOT PERFORMED % PLATELET COUNT (test code = 1015) TEST NOT PERFORMED K/UL ABSOLUTE NEUTROPHILS (test code = 1066) TEST NOT PERFORMED K/UL ABSOLUTE LYMPHOCYTES (test code = 1067) TEST NOT PERFORMED K/UL ABSOLUTE MONOCYTES (test code = 1068) TEST NOT PERFORMED K/UL ABSOLUTE EOSINOPHILS (test code = 1040) TEST NOT PERFORMED K/UL ABSOLUTE BASOPHILS (test code = 1069) TEST NOT PERFORMED K/UL Colby F AustinCBC W/AUTO [id number] 00:00:00* Test Item Value Reference Range Interpretation Comme nts WBC (test code = 1001) TEST NOT PERFORME D K/UL RBC (test code = 1002) TEST NOT PERFORME D M/UL HEMOGLOBIN (test code = 1003) TEST NOT PERFORMED G/DL HEMATOCRIT (test code = 1004) TEST NOT PERFORMED % MCV (test code = 1005) TEST NOT PERFORMED fL MCH (test code = 1006) TEST NOT PERFORMED PG MCHC (test code = 1007) TEST NOT PERFORM ED G/DL RDW (test code = 1038) TEST NOT PERFORMED % NEUTROPHILS (test code = 1008) TEST NOT PERFORMED % LYMPHOCYTES (test code = 1010) TEST NOT PERFORMED % MONOCYTES (test code = 1011) TEST NOT PERFORMED % EOSINOPHILS (test code = 1012) TEST NOT PERFORMED % BASOPHILS (test code = 1013) TEST NOT PERFORMED % PLATELET COUNT (test code = 1015) TEST NOT PERFORMED K/UL ABSOLUTE NEUTROPHILS (test code = 1066) TEST NOT PERFORMED K/UL ABSOLUTE LYMPHOCYTES (test code = 1067) TEST NOT PERFORMED K/UL ABSOLUTE MONOCYTES (test code = 1068) TEST NOT PERFORMED K/UL ABSOLUTE EOSINOPHILS (test code = 1040) TEST NOT PERFORMED K/UL ABSOLUTE BASOPHILS (test code = 1069) TEST NOT PERFORMED K/UL Colby F AustinCBC W/AUTO [id number] 00:00:00* Test Item Value Reference Range Interpretation Comme nts WBC (test code = 1001) TEST NOT PERFORME D K/UL RBC (test code = 1002) TEST NOT PERFORME D M/UL HEMOGLOBIN (test code = 1003) TEST NOT PERFORMED G/DL HEMATOCRIT (test code = 1004) TEST NOT PERFORMED % MCV (test code = 1005) TEST NOT PERFORMED fL MCH (test code = 1006) TEST NOT PERFORMED PG MCHC (test code = 1007) TEST NOT PERFORM ED G/DL RDW (test code = 1038) TEST NOT PERFORMED % NEUTROPHILS (test code = 1008) TEST NOT PERFORMED % LYMPHOCYTES (test code = 1010) TEST NOT PERFORMED % MONOCYTES (test code = 1011) TEST NOT PERFORMED % EOSINOPHILS (test code = 1012) TEST NOT PERFORMED % BASOPHILS (test code = 1013) TEST NOT PERFORMED % PLATELET COUNT (test code = 1015) TEST NOT PERFORMED K/UL ABSOLUTE NEUTROPHILS (test code = 1066) TEST NOT PERFORMED K/UL ABSOLUTE LYMPHOCYTES (test code = 1067) TEST NOT PERFORMED K/UL ABSOLUTE MONOCYTES (test code = 1068) TEST NOT PERFORMED K/UL ABSOLUTE EOSINOPHILS (test code = 1040) TEST NOT PERFORMED K/UL ABSOLUTE BASOPHILS (test code = 1069) TEST NOT PERFORMED K/UL Colby F AustinCBC W/AUTO [id number] 00:00:00* Test Item Value Reference Range Interpretation Comme nts WBC (test code = 1001) TEST NOT PERFORME D K/UL RBC (test code = 1002) TEST NOT PERFORME D M/UL HEMOGLOBIN (test code = 1003) TEST NOT PERFORMED G/DL HEMATOCRIT (test code = 1004) TEST NOT PERFORMED % MCV (test code = 1005) TEST NOT PERFORMED fL MCH (test code = 1006) TEST NOT PERFORMED PG MCHC (test code = 1007) TEST NOT PERFORM ED G/DL RDW (test code = 1038) TEST NOT PERFORMED % NEUTROPHILS (test code = 1008) TEST NOT PERFORMED % LYMPHOCYTES (test code = 1010) TEST NOT PERFORMED % MONOCYTES (test code = 1011) TEST NOT PERFORMED % EOSINOPHILS (test code = 1012) TEST NOT PERFORMED % BASOPHILS (test code = 1013) TEST NOT PERFORMED % PLATELET COUNT (test code = 1015) TEST NOT PERFORMED K/UL ABSOLUTE NEUTROPHILS (test code = 1066) TEST NOT PERFORMED K/UL ABSOLUTE LYMPHOCYTES (test code = 1067) TEST NOT PERFORMED K/UL ABSOLUTE MONOCYTES (test code = 1068) TEST NOT PERFORMED K/UL ABSOLUTE EOSINOPHILS (test code = 1040) TEST NOT PERFORMED K/UL ABSOLUTE BASOPHILS (test code = 1069) TEST NOT PERFORMED K/UL Colby F AustinRSV BY [id number] 00:00:00* Test Item Value Reference Range Interpretation Comme nts RSV BY DFA (test code = 46916) Negative SOURCE (test code = 73641) Not Provided Colby F AustinRSV BY [id number] 00:00:00* Test Item Value Reference Range Interpretation Comme nts RSV BY DFA (test code = 09687) Negative SOURCE (test code = 36298) Not Provided Colby F AustinRSV BY [id number] 00:00:00* Test Item Value Reference Range Interpretation Comme nts RSV BY DFA (test code = 35960) Negative SOURCE (test code = 91722) Not Provided Colby F AustinRSV BY [id number] 00:00:00* Test Item Value Reference Range Interpretation Comme nts RSV BY DFA (test code = 47165) Negative SOURCE (test code = 95199) Not Provided Colby F AustinRSV BY [id number] 00:00:00* Test Item Value Reference Range Interpretation Comme nts RSV BY DFA (test code = 64236) Negative SOURCE (test code = 92275) Not Provided Colby Cochran AustinRSV BY [id number] 00:00:00* Test Item Value Reference Range Interpretation Comme nts RSV BY DFA (test code = 38905) Negative SOURCE (test code = 24568) Not Provided Colby F AustinRSV BY [id number] 00:00:00* Test Item Value Reference Range Interpretation Comme nts RSV BY DFA (test code = 71373) Negative SOURCE (test code = 40150) Not Provided Colby Cochran MmvzzdGQGK-[id number]-7 (COVID-19) by RT-PCR (HIGH RISK)2021-07-18 00:00:00* Test Item Value Reference Range Interpretation Comme nts SARS-CoV-2 INTERPRETATION (t est code = 38873) POSITIVE SOURCE (test code = 45484) NOT SPECIFIED Colby F BahdwzZHWD-ZoQ-0 (COVID-19) by RT-PCR (HIGH RISK)2021-07-18 00:00:00* Test Item Value Reference Range Interpretation Comme nts SARS-CoV-2 INTERPRETATION (t est code = 36129) POSITIVE SOURCE (test code = 85436) NOT SPECIFIED Colby F SadocySEAD-IqQ-5 (COVID-19) by RT-PCR (HIGH RISK)2021-07-18 00:00:00* Test Item Value Reference Range Interpretation Comme nts SARS-CoV-2 INTERPRETATION (t est code = 87633) POSITIVE SOURCE (test code = 29957) NOT SPECIFIED Colby F RiqjudEWYY-[id number]-8 (COVID-19) by RT-PCR (HIGH RISK)2021-07-18 00:00:00* Test Item Value Reference Range Interpretation Comme nts SARS-CoV-2 INTERPRETATION (t est code = 30573) POSITIVE SOURCE (test code = 43715) NOT SPECIFIED Colby F AtieuuMCLB-VbN-4 (COVID-19) by RT-PCR (HIGH RISK)2021-07-18 00:00:00* Test Item Value Reference Range Interpretation Comme nts SARS-CoV-2 INTERPRETATION (t est code = 39508) POSITIVE SOURCE (test code = 96996) NOT SPECIFIED Colby F AbqlovPPNY-IzR-6 (COVID-19) by RT-PCR (HIGH RISK)2021-07-18 00:00:00* Test Item Value Reference Range Interpretation Comme nts SARS-CoV-2 INTERPRETATION (t est code = 52562) POSITIVE SOURCE (test code = 16364) NOT SPECIFIED Colby RankinSARS-CoV-2 (COVID-19) by RT-PCR (HIGH RISK)2021-07-18 00:00:00* Test Item Value Reference Range Interpretation Comme nts SARS-CoV-2 INTERPRETATION (t est code = 06206) POSITIVE SOURCE (test code = 07768) NOT SPECIFIED Colby [id number] 00:00:00* Test Item Value Reference Range Interpretation Comme nts TSH, THIRD GENERATION (test code = 2821) 1.260 UIU/ML Colby [id number] 00:00:00* Test Item Value Reference Range Interpretation Comme nts TSH, THIRD GENERATION (test code = 2821) 1.260 UIU/ML Colby [id number] 00:00:00* Test Item Value Reference Range Interpretation Comme nts TSH, THIRD GENERATION (test code = 2821) 1.260 UIU/ML Colby [id number] 00:00:00* Test Item Value Reference Range Interpretation Comme nts TSH, THIRD GENERATION (test code = 2821) 1.260 UIU/ML Colby [id number] 00:00:00* Test Item Value Reference Range Interpretation Comme nts TSH, THIRD GENERATION (test code = 2821) 1.260 UIU/ML Colby Cochran [id number] 00:00:00* Test Item Value Reference Range Interpretation Comme nts TSH, THIRD GENERATION (test code = 2821) 1.260 UIU/ML Colby [id number] 00:00:00* Test Item Value Reference Range Interpretation Comme nts TSH, THIRD GENERATION (test code = 2821) 1.260 UIU/ML Colby RankinCT SMALL BOWEL [id number] 20:43:42Unremarkable small bowell follow-through.FL SMALL BOWEL SERIES HISTORY: 30 years-old woman with diarrhea, unspecified type COMPARISON: None available TECHNIQUE AND FINDINGS: The basketball assembler image of the abdomen demonstrates moderate stool burden withinascending and transverse colon. Cholecystectomy clipsin the right upperquadrant. Barium was administered for the patient to ingest. Fluoroscopy and serialfilms were obtained as the barium traversed the small bowel into the cecumand ascending colon. Normal transition time at about 4 hours. No mucosal orfunctional abnormalities were observed. No dilatation or stricture. [facility], Radiant Results Inft User - 03/02/2021 3:44 PM CDTFL SMALL BOWEL SERIESHISTORY: 30 years-old woman with diarrhea, unspecified type COMPARISON: None availableTECHNIQUE AND FINDINGS:The basketball assembler image of the abdomen demonstrates moderate stool burden withinascending and transverse colon. Cholecystectomy clips in the right upperquadrant.Barium was administered for the patient to ingest. Fluoroscopy and serialfilms were obtained as the barium traversed the small bowel into the cecumand ascending colon. Normal transition time at about 4 hours. No mucosal orfunctional abnormalities were observed. No dilatation or stricture.IMPRESSIONUnremarkable small bowell follow-through.[facility] [REFLEX]2021-01-26 00:00:00* Test Item Value Reference Range Interpretation Comme nts PATTERN (test code = 43004) SPECKLED ESHA TITER (test code = 3550) 1:40 TITER PATTERN 2 (test code = 20795) NOT DETECTED ESHA TITER 2 (test code = 54464) NOT DETECTED TITER PATTERN 3 (test code = 66950) NOT DETECTED ESHA TITER 3 (test code = 13767) NOT DETECTED TITER METHOD (test code = 20136) (NOTE) Colby Robles TITER AND PATTERN [REFLEX]2021-01-26 00:00:00* Test Item Value Reference Range Interpretation Comme nts PATTERN (test code = 11650) SPECKLED ESHA TITER (test code = 3550) 1:40 TITER PATTERN 2 (test code = 62537) NOT DETECTED ESHA TITER 2 (test code = 76311) NOT DETECTED TITER PATTERN 3 (test code = 95127) NOT DETECTED ESHA TITER 3 (test code = 87360) NOT DETECTED TITER METHOD (test code = 94332) (NOTE) Colby Robles TITER AND PATTERN [REFLEX]2021-01-26 00:00:00* Test Item Value Reference Range Interpretation Comme nts PATTERN (test code = 73339) SPECKLED EHSA TITER (test code = 3550) 1:40 TITER PATTERN 2 (test code = 52521) NOT DETECTED ESHA TITER 2 (test code = 96910) NOT DETECTED TITER PATTERN 3 (test code = 50507) NOT DETECTED ESHA TITER 3 (test code = 42295) NOT DETECTED TITER METHOD (test code = 30973) (NOTE) Colby Dimas ChuchoANA TITER AND PATTERN [REFLEX]2021-01-26 00:00:00* Test Item Value Reference Range Interpretation Comme nts PATTERN (test code = 26242) SPECKLED ESHA TITER (test code = 3550) 1:40 TITER PATTERN 2 (test code = 63261) NOT DETECTED ESHA TITER 2 (test code = 99359) NOT DETECTED TITER PATTERN 3 (test code = 69247) NOT DETECTED ESHA TITER 3 (test code = 19746) NOT DETECTED TITER METHOD (test code = 38548) (NOTE) Colby Dimas ChuchoANA TITER AND PATTERN [REFLEX]2021-01-26 00:00:00* Test Item Value Reference Range Interpretation Comme nts PATTERN (test code = 57891) SPECKLED ESHA TITER (test code = 3550) 1:40 TITER PATTERN 2 (test code = 87051) NOT DETECTED ESHA TITER 2 (test code = 58931) NOT DETECTED TITER PATTERN 3 (test code = 31804) NOT DETECTED ESHA TITER 3 (test code = 04076) NOT DETECTED TITER METHOD (test code = 29280) (NOTE) Cobly Dimas ChuchoANA TITER AND PATTERN [REFLEX]2021-01-26 00:00:00* Test Item Value Reference Range Interpretation Comme nts PATTERN (test code = 17264) SPECKLED ESHA TITER (test code = 3550) 1:40 TITER PATTERN 2 (test code = 91244) NOT DETECTED ESHA TITER 2 (test code = 63207) NOT DETECTED TITER PATTERN 3 (test code = 96907) NOT DETECTED ESHA TITER 3 (test code = 00043) NOT DETECTED TITER METHOD (test code = 25299) (NOTE) Colby Dimas AustinANA TITER AND PATTERN [REFLEX]2021-01-26 00:00:00* Test Item Value Reference Range Interpretation Comme nts PATTERN (test code = 81110) SPECKLED ESHA TITER (test code = 3550) 1:40 TITER PATTERN 2 (test code = 91485) NOT DETECTED ESHA TITER 2 (test code = 56409) NOT DETECTED TITER PATTERN 3 (test code = 67942) NOT DETECTED ESHA TITER 3 (test code = 89421) NOT DETECTED TITER METHOD (test code = 37155) (NOTE) Colby RankinCOMPREHENSIVE METABOLIC [id number] 00:00:00* Test Item Value Reference Range Interpretation Comme nts GLUCOSE (test code = 2217) 104 MG/DL BUN (test code = 2208) 12 MG/DL CREATININE (test code = 2214) 0.65 MG/DL eGFR AMER. (test cod e = 58445) 137 ML/MIN/1.73 eGFR NON- AMER. (test code = 81645) 118 ML/MIN/1.73 CALC BUN/CREAT (test code = 2235) 18 RATIO SODIUM (test code = 2231) 144 MEQ/L POTASSIUM (test code = 2228) 3.5 MEQ/L CHLORIDE (test code = 2215) 105 MEQ/L CARBON DIOXIDE (test code = 2206) 25 MEQ/L CALCIUM (test code = 2209) 9.0 MG/DL PROTEIN, TOTAL (test code = 2229) 6.7 G/DL ALBUMIN (test code = 2201) 4.0 G/DL CALC GLOBULIN (test code = 2240) 2.7 G/DL CALC A/G RATIO (test code = 2234) 1.5 RATIO BILIRUBIN, TOTAL (test code = 2207) <0.2 MG/DL ALKALINE PHOSPHATASE (test code = 2204) 68 U/L AST (test code = 2218) 23 U/L ALT (test code = 2219) 22 U/L Colby RankinSEDIMENTATION [id number] 00:00:00* Test Item Value Reference Range Interpretation Comme nts SEDIMENTATION RATE (test cod e = 1017) 8 MM/HOUR Colby RankinESHA (ANTI-NUCLEAR AB) WITH REFLEX [id number] 00:00:00* Test Item Value Reference Range Interpretation Comme nts ANTI-NUCLEAR ANTIBODIES (laina t code = 3506) POSITIVE Colby RankinC-REACTIVE [id number] 00:00:00* Test Item Value Reference Range Interpretation Comme nts C-REACTIVE PROTEIN (test cod e = 3513) 0.9 MG/DL Colby RankinCBC W/AUTO [id number] 00:00:00* Test Item Value Reference Range Interpretation Comme nts WBC (test code = 1001) 4.7 K/UL RBC (test code = 1002) 5.10 M/UL HEMOGLOBIN (test code = 1003) 11.6 G/DL HEMATOCRIT (test code = 1004) 36.4 % MCV (test code = 1005) 71.4 fL MCH (test code = 1006) 22.7 PG MCHC (test code = 1007) 31.9 G/DL RDW (test code = 1038) 15.1 % NEUTROPHILS (test code = 1008) 35.6 % LYMPHOCYTES (test code = 1010) 54.6 % MONOCYTES (test code = 1011) 6.4 % EOSINOPHILS (test code = 1012) 2.8 % BASOPHILS (test code = 1013) 0.6 % PLATELET COUNT (test code = 1015) 260 K/UL Colby RankinCOMPREHENSIVE METABOLIC [id number] 00:00:00* Test Item Value Reference Range Interpretation Comme nts GLUCOSE (test code = 2217) 104 MG/DL BUN (test code = 2208) 12 MG/DL CREATININE (test code = 2214) 0.65 MG/DL eGFR AMER. (test cod e = 73059) 137 ML/MIN/1.73 eGFR NON- AMER. (test code = 63900) 118 ML/MIN/1.73 CALC BUN/CREAT (test code = 2235) 18 RATIO SODIUM (test code = 2231) 144 MEQ/L POTASSIUM (test code = 2228) 3.5 MEQ/L CHLORIDE (test code = 2215) 105 MEQ/L CARBON DIOXIDE (test code = 2206) 25 MEQ/L CALCIUM (test code = 2209) 9.0 MG/DL PROTEIN, TOTAL (test code = 2229) 6.7 G/DL ALBUMIN (test code = 2201) 4.0 G/DL CALC GLOBULIN (test code = 2240) 2.7 G/DL CALC A/G RATIO (test code = 2234) 1.5 RATIO BILIRUBIN, TOTAL (test code = 2207) <0.2 MG/DL ALKALINE PHOSPHATASE (test code = 2204) 68 U/L AST (test code = 2218) 23 U/L ALT (test code = 2219) 22 U/L Colby RankinSEDIMENTATION [id number] 00:00:00* Test Item Value Reference Range Interpretation Comme nts SEDIMENTATION RATE (test cod e = 1017) 8 MM/HOUR Colby Robles (ANTI-NUCLEAR AB) WITH REFLEX [id number] 00:00:00* Test Item Value Reference Range Interpretation Comme claude ANTI-NUCLEAR ANTIBODIES (laina t code = 3506) POSITIVE Colby RankinC-REACTIVE [id number] 00:00:00* Test Item Value Reference Range Interpretation Comme claude C-REACTIVE PROTEIN (test cod e = 3513) 0.9 MG/DL Colby RankinCBC W/AUTO [id number] 00:00:00* Test Item Value Reference Range Interpretation Comme nts WBC (test code = 1001) 4.7 K/UL RBC (test code = 1002) 5.10 M/UL HEMOGLOBIN (test code = 1003) 11.6 G/DL HEMATOCRIT (test code = 1004) 36.4 % MCV (test code = 1005) 71.4 fL MCH (test code = 1006) 22.7 PG MCHC (test code = 1007) 31.9 G/DL RDW (test code = 1038) 15.1 % NEUTROPHILS (test code = 1008) 35.6 % LYMPHOCYTES (test code = 1010) 54.6 % MONOCYTES (test code = 1011) 6.4 % EOSINOPHILS (test code = 1012) 2.8 % BASOPHILS (test code = 1013) 0.6 % PLATELET COUNT (test code = 1015) 260 K/UL Colby RankinCOMPREHENSIVE METABOLIC [id number] 00:00:00* Test Item Value Reference Range Interpretation Comme nts GLUCOSE (test code = 2217) 104 MG/DL BUN (test code = 2208) 12 MG/DL CREATININE (test code = 2214) 0.65 MG/DL eGFR AMER. (test cod e = 61916) 137 ML/MIN/1.73 eGFR NON- AMER. (test code = 74824) 118 ML/MIN/1.73 CALC BUN/CREAT (test code = 2235) 18 RATIO SODIUM (test code = 2231) 144 MEQ/L POTASSIUM (test code = 2228) 3.5 MEQ/L CHLORIDE (test code = 2215) 105 MEQ/L CARBON DIOXIDE (test code = 2206) 25 MEQ/L CALCIUM (test code = 2209) 9.0 MG/DL PROTEIN, TOTAL (test code = 2229) 6.7 G/DL ALBUMIN (test code = 2201) 4.0 G/DL CALC GLOBULIN (test code = 2240) 2.7 G/DL CALC A/G RATIO (test code = 2234) 1.5 RATIO BILIRUBIN, TOTAL (test code = 2207) <0.2 MG/DL ALKALINE PHOSPHATASE (test code = 2204) 68 U/L AST (test code = 2218) 23 U/L ALT (test code = 2219) 22 U/L Colby RankinSEDIMENTATION [id number] 00:00:00* Test Item Value Reference Range Interpretation Comme nts SEDIMENTATION RATE (test cod e = 1017) 8 MM/HOUR Colby RankinESHA (ANTI-NUCLEAR AB) WITH REFLEX [id number] 00:00:00* Test Item Value Reference Range Interpretation Comme nts ANTI-NUCLEAR ANTIBODIES (laina t code = 3506) POSITIVE Colby RankinC-REACTIVE [id number] 00:00:00* Test Item Value Reference Range Interpretation Comme nts C-REACTIVE PROTEIN (test cod e = 3513) 0.9 MG/DL Colby RankinCBC W/AUTO [id number] 00:00:00* Test Item Value Reference Range Interpretation Comme nts WBC (test code = 1001) 4.7 K/UL RBC (test code = 1002) 5.10 M/UL HEMOGLOBIN (test code = 1003) 11.6 G/DL HEMATOCRIT (test code = 1004) 36.4 % MCV (test code = 1005) 71.4 fL MCH (test code = 1006) 22.7 PG MCHC (test code = 1007) 31.9 G/DL RDW (test code = 1038) 15.1 % NEUTROPHILS (test code = 1008) 35.6 % LYMPHOCYTES (test code = 1010) 54.6 % MONOCYTES (test code = 1011) 6.4 % EOSINOPHILS (test code = 1012) 2.8 % BASOPHILS (test code = 1013) 0.6 % PLATELET COUNT (test code = 1015) 260 K/UL Colby RankinCOMPREHENSIVE METABOLIC [id number] 00:00:00* Test Item Value Reference Range Interpretation Comme nts GLUCOSE (test code = 2217) 104 MG/DL BUN (test code = 2208) 12 MG/DL CREATININE (test code = 2214) 0.65 MG/DL eGFR AMER. (test cod e = 38622) 137 ML/MIN/1.73 eGFR NON- AMER. (test code = 94973) 118 ML/MIN/1.73 CALC BUN/CREAT (test code = 2235) 18 RATIO SODIUM (test code = 2231) 144 MEQ/L POTASSIUM (test code = 2228) 3.5 MEQ/L CHLORIDE (test code = 2215) 105 MEQ/L CARBON DIOXIDE (test code = 2206) 25 MEQ/L CALCIUM (test code = 2209) 9.0 MG/DL PROTEIN, TOTAL (test code = 2229) 6.7 G/DL ALBUMIN (test code = 2201) 4.0 G/DL CALC GLOBULIN (test code = 2240) 2.7 G/DL CALC A/G RATIO (test code = 2234) 1.5 RATIO BILIRUBIN, TOTAL (test code = 2207) <0.2 MG/DL ALKALINE PHOSPHATASE (test code = 2204) 68 U/L AST (test code = 2218) 23 U/L ALT (test code = 2219) 22 U/L Colby Cochran ChuchoSEDIMENTATION [id number] 00:00:00* Test Item Value Reference Range Interpretation Comme nts SEDIMENTATION RATE (test cod e = 1017) 8 MM/HOUR Colby Cochran Margaret (ANTI-NUCLEAR AB) WITH REFLEX [id number] 00:00:00* Test Item Value Reference Range Interpretation Comme nts ANTI-NUCLEAR ANTIBODIES (laina t code = 3506) POSITIVE Colby Cochran ChuchoC-REACTIVE [id number] 00:00:00* Test Item Value Reference Range Interpretation Comme nts C-REACTIVE PROTEIN (test cod e = 3513) 0.9 MG/DL Colby Cochran ChuchoCBC W/AUTO [id number] 00:00:00* Test Item Value Reference Range Interpretation Comme nts WBC (test code = 1001) 4.7 K/UL RBC (test code = 1002) 5.10 M/UL HEMOGLOBIN (test code = 1003) 11.6 G/DL HEMATOCRIT (test code = 1004) 36.4 % MCV (test code = 1005) 71.4 fL MCH (test code = 1006) 22.7 PG MCHC (test code = 1007) 31.9 G/DL RDW (test code = 1038) 15.1 % NEUTROPHILS (test code = 1008) 35.6 % LYMPHOCYTES (test code = 1010) 54.6 % MONOCYTES (test code = 1011) 6.4 % EOSINOPHILS (test code = 1012) 2.8 % BASOPHILS (test code = 1013) 0.6 % PLATELET COUNT (test code = 1015) 260 K/UL Colby Cochran ChuchoCOMPREHENSIVE METABOLIC [id number] 00:00:00* Test Item Value Reference Range Interpretation Comme nts GLUCOSE (test code = 2217) 104 MG/DL BUN (test code = 2208) 12 MG/DL CREATININE (test code = 2214) 0.65 MG/DL eGFR AMER. (test cod e = 77696) 137 ML/MIN/1.73 eGFR NON- AMER. (test code = 34855) 118 ML/MIN/1.73 CALC BUN/CREAT (test code = 2235) 18 RATIO SODIUM (test code = 2231) 144 MEQ/L POTASSIUM (test code = 2228) 3.5 MEQ/L CHLORIDE (test code = 2215) 105 MEQ/L CARBON DIOXIDE (test code = 2206) 25 MEQ/L CALCIUM (test code = 2209) 9.0 MG/DL PROTEIN, TOTAL (test code = 2229) 6.7 G/DL ALBUMIN (test code = 2201) 4.0 G/DL CALC GLOBULIN (test code = 2240) 2.7 G/DL CALC A/G RATIO (test code = 2234) 1.5 RATIO BILIRUBIN, TOTAL (test code = 2207) <0.2 MG/DL ALKALINE PHOSPHATASE (test code = 2204) 68 U/L AST (test code = 2218) 23 U/L ALT (test code = 2219) 22 U/L Colby Cochran ChuchoSEDIMENTATION [id number] 00:00:00* Test Item Value Reference Range Interpretation Comme nts SEDIMENTATION RATE (test cod e = 1017) 8 MM/HOUR Colby Dimas Margaret (ANTI-NUCLEAR AB) WITH REFLEX [id number] 00:00:00* Test Item Value Reference Range Interpretation Comme nts ANTI-NUCLEAR ANTIBODIES (laina t code = 3506) POSITIVE Colby RankinC-REACTIVE [id number] 00:00:00* Test Item Value Reference Range Interpretation Comme claude C-REACTIVE PROTEIN (test cod e = 3513) 0.9 MG/DL Colby RankinCBC W/AUTO [id number] 00:00:00* Test Item Value Reference Range Interpretation Comme nts WBC (test code = 1001) 4.7 K/UL RBC (test code = 1002) 5.10 M/UL HEMOGLOBIN (test code = 1003) 11.6 G/DL HEMATOCRIT (test code = 1004) 36.4 % MCV (test code = 1005) 71.4 fL MCH (test code = 1006) 22.7 PG MCHC (test code = 1007) 31.9 G/DL RDW (test code = 1038) 15.1 % NEUTROPHILS (test code = 1008) 35.6 % LYMPHOCYTES (test code = 1010) 54.6 % MONOCYTES (test code = 1011) 6.4 % EOSINOPHILS (test code = 1012) 2.8 % BASOPHILS (test code = 1013) 0.6 % PLATELET COUNT (test code = 1015) 260 K/UL Colby RankinCOMPREHENSIVE METABOLIC [id number] 00:00:00* Test Item Value Reference Range Interpretation Comme claude GLUCOSE (test code = 2217) 104 MG/DL BUN (test code = 2208) 12 MG/DL CREATININE (test code = 2214) 0.65 MG/DL eGFR AMER. (test cod e = 24572) 137 ML/MIN/1.73 eGFR NON- AMER. (test code = 67625) 118 ML/MIN/1.73 CALC BUN/CREAT (test code = 2235) 18 RATIO SODIUM (test code = 2231) 144 MEQ/L POTASSIUM (test code = 2228) 3.5 MEQ/L CHLORIDE (test code = 2215) 105 MEQ/L CARBON DIOXIDE (test code = 2206) 25 MEQ/L CALCIUM (test code = 2209) 9.0 MG/DL PROTEIN, TOTAL (test code = 2229) 6.7 G/DL ALBUMIN (test code = 2201) 4.0 G/DL CALC GLOBULIN (test code = 2240) 2.7 G/DL CALC A/G RATIO (test code = 2234) 1.5 RATIO BILIRUBIN, TOTAL (test code = 2207) <0.2 MG/DL ALKALINE PHOSPHATASE (test code = 2204) 68 U/L AST (test code = 2218) 23 U/L ALT (test code = 2219) 22 U/L Colby RankinSEDIMENTATION [id number] 00:00:00* Test Item Value Reference Range Interpretation Comme nts SEDIMENTATION RATE (test cod e = 1017) 8 MM/HOUR Colby Robles (ANTI-NUCLEAR AB) WITH REFLEX [id number] 00:00:00* Test Item Value Reference Range Interpretation Comme nts ANTI-NUCLEAR ANTIBODIES (laina t code = 3506) POSITIVE Colby RankinC-REACTIVE [id number] 00:00:00* Test Item Value Reference Range Interpretation Comme nts C-REACTIVE PROTEIN (test cod e = 3513) 0.9 MG/DL Colby RankinCBC W/AUTO [id number] 00:00:00* Test Item Value Reference Range Interpretation Comme nts WBC (test code = 1001) 4.7 K/UL RBC (test code = 1002) 5.10 M/UL HEMOGLOBIN (test code = 1003) 11.6 G/DL HEMATOCRIT (test code = 1004) 36.4 % MCV (test code = 1005) 71.4 fL MCH (test code = 1006) 22.7 PG MCHC (test code = 1007) 31.9 G/DL RDW (test code = 1038) 15.1 % NEUTROPHILS (test code = 1008) 35.6 % LYMPHOCYTES (test code = 1010) 54.6 % MONOCYTES (test code = 1011) 6.4 % EOSINOPHILS (test code = 1012) 2.8 % BASOPHILS (test code = 1013) 0.6 % PLATELET COUNT (test code = 1015) 260 K/UL Colby RankinCOMPREHENSIVE METABOLIC [id number] 00:00:00* Test Item Value Reference Range Interpretation Comme nts GLUCOSE (test code = 2217) 104 MG/DL BUN (test code = 2208) 12 MG/DL CREATININE (test code = 2214) 0.65 MG/DL eGFR AMER. (test cod e = 73512) 137 ML/MIN/1.73 eGFR NON- AMER. (test code = 08143) 118 ML/MIN/1.73 CALC BUN/CREAT (test code = 2235) 18 RATIO SODIUM (test code = 2231) 144 MEQ/L POTASSIUM (test code = 2228) 3.5 MEQ/L CHLORIDE (test code = 2215) 105 MEQ/L CARBON DIOXIDE (test code = 2206) 25 MEQ/L CALCIUM (test code = 2209) 9.0 MG/DL PROTEIN, TOTAL (test code = 2229) 6.7 G/DL ALBUMIN (test code = 2201) 4.0 G/DL CALC GLOBULIN (test code = 2240) 2.7 G/DL CALC A/G RATIO (test code = 2234) 1.5 RATIO BILIRUBIN, TOTAL (test code = 2207) <0.2 MG/DL ALKALINE PHOSPHATASE (test code = 2204) 68 U/L AST (test code = 2218) 23 U/L ALT (test code = 2219) 22 U/L Colby Cochran ChuchoSEDIMENTATION [id number] 00:00:00* Test Item Value Reference Range Interpretation Comme nts SEDIMENTATION RATE (test cod e = 1017) 8 MM/HOUR Colby Cochran Margaret (ANTI-NUCLEAR AB) WITH REFLEX [id number] 00:00:00* Test Item Value Reference Range Interpretation Comme claude ANTI-NUCLEAR ANTIBODIES (laina t code = 3506) POSITIVE Colby Cochran ChuchoC-REACTIVE [id number] 00:00:00* Test Item Value Reference Range Interpretation Comme nts C-REACTIVE PROTEIN (test cod e = 3513) 0.9 MG/DL Colby Cochran ChuchoCBC W/AUTO [id number] 00:00:00* Test Item Value Reference Range Interpretation Comme nts WBC (test code = 1001) 4.7 K/UL RBC (test code = 1002) 5.10 M/UL HEMOGLOBIN (test code = 1003) 11.6 G/DL HEMATOCRIT (test code = 1004) 36.4 % MCV (test code = 1005) 71.4 fL MCH (test code = 1006) 22.7 PG MCHC (test code = 1007) 31.9 G/DL RDW (test code = 1038) 15.1 % NEUTROPHILS (test code = 1008) 35.6 % LYMPHOCYTES (test code = 1010) 54.6 % MONOCYTES (test code = 1011) 6.4 % EOSINOPHILS (test code = 1012) 2.8 % BASOPHILS (test code = 1013) 0.6 % PLATELET COUNT (test code = 1015) 260 K/UL Colby F ItisofSNPE-FjA-9 (COVID-19) by RT-PCR (HIGH RISK)2020-07-11 00:00:00* Test Item Value Reference Range Interpretation Comme nts SARS-CoV-2 INTERPRETATION (test code = 96345) NEGATIVE SOURCE (test code = 74777) NASOPHARYNGEAL Colby F WhkhjoKSCY-DjW-2 (COVID-19) by RT-PCR (HIGH RISK)2020-07-11 00:00:00* Test Item Value Reference Range Interpretation Comme nts SARS-CoV-2 INTERPRETATION (test code = 75023) NEGATIVE SOURCE (test code = 50866) NASOPHARYNGEAL Colby F WuctriBOPG-BmH-9 (COVID-19) by RT-PCR (HIGH RISK)2020-07-11 00:00:00* Test Item Value Reference Range Interpretation Comme nts SARS-CoV-2 INTERPRETATION (test code = 84473) NEGATIVE SOURCE (test code = 22028) NASOPHARYNGEAL Colby F IwdrvxUGFX-XeH-4 (COVID-19) by RT-PCR (HIGH RISK)2020-07-11 00:00:00* Test Item Value Reference Range Interpretation Comme nts SARS-CoV-2 INTERPRETATION (test code = 25846) NEGATIVE SOURCE (test code = 95388) NASOPHARYNGEAL Colby F VnyrupYJHS-FgE-6 (COVID-19) by RT-PCR (HIGH RISK)2020-07-11 00:00:00* Test Item Value Reference Range Interpretation Comme nts SARS-CoV-2 INTERPRETATION (test code = 56173) NEGATIVE SOURCE (test code = 44644) NASOPHARYNGEAL Colby F DepvdzGNNR-IvP-2 (COVID-19) by RT-PCR (HIGH RISK)2020-07-11 00:00:00* Test Item Value Reference Range Interpretation Comme nts SARS-CoV-2 INTERPRETATION (test code = 09315) NEGATIVE SOURCE (test code = 68404) NASOPHARYNGEAL Colby F RitwlvVGMX-MsP-1 (COVID-19) by RT-PCR (HIGH RISK)2020-07-11 00:00:00* Test Item Value Reference Range Interpretation Comme nts SARS-CoV-2 INTERPRETATION (test code = 72064) NEGATIVE SOURCE (test code = 68154) NASOPHARYNGEAL Colby F XghmkvWNSB-UzX-0 (COVID-19) by RT-PCR (HIGH RISK)2020-06-20 00:00:00* Test Item Value Reference Range Interpretation Comme nts SARS-CoV-2 INTERPRETATION (t est code = 43632) NEGATIVE SOURCE (test code = 79430) NOT SPECIFIED Colby F BdhmrbKBWE-AfE-9 (COVID-19) by RT-PCR (HIGH RISK)2020-06-20 00:00:00* Test Item Value Reference Range Interpretation Comme nts SARS-CoV-2 INTERPRETATION (t est code = 68068) NEGATIVE SOURCE (test code = 67436) NOT SPECIFIED Colby F OsqmdlUEZA-AhQ-8 (COVID-19) by RT-PCR (HIGH RISK)2020-06-20 00:00:00* Test Item Value Reference Range Interpretation Comme nts SARS-CoV-2 INTERPRETATION (t est code = 33864) NEGATIVE SOURCE (test code = 15030) NOT SPECIFIED Colby F UyaeiuEYGT-LgD-1 (COVID-19) by RT-PCR (HIGH RISK)2020-06-20 00:00:00* Test Item Value Reference Range Interpretation Comme nts SARS-CoV-2 INTERPRETATION (t est code = 09360) NEGATIVE SOURCE (test code = 30243) NOT SPECIFIED Colby F KvhdoxGHWM-ImS-7 (COVID-19) by RT-PCR (HIGH RISK)2020-06-20 00:00:00* Test Item Value Reference Range Interpretation Comme nts SARS-CoV-2 INTERPRETATION (t est code = 95727) NEGATIVE SOURCE (test code = 59786) NOT SPECIFIED Colby F GyxsazGYVG-QlH-6 (COVID-19) by RT-PCR (HIGH RISK)2020-06-20 00:00:00* Test Item Value Reference Range Interpretation Comme nts SARS-CoV-2 INTERPRETATION (t est code = 30364) NEGATIVE SOURCE (test code = 40380) NOT SPECIFIED Colby F RhmtviHXCX-QtU-3 (COVID-19) by RT-PCR (HIGH RISK)2020-06-20 00:00:00* Test Item Value Reference Range Interpretation Comme nts SARS-CoV-2 INTERPRETATION (t est code = 85666) NEGATIVE SOURCE (test code = 41257) NOT SPECIFIED Colby Rankin Notes || Date/Time Note Provider Source Colby Rankin [facility]2025-01-22 00:00:00|| Colby De Paz [facility]2024-12-23 00:00:00|| Colby De Paz [facility]2024-11-17 15:29:02 Patient discharged to home. Patient given printed and verbal discharge instructions regarding diagnosis. Instructed to follow up with PCP. Patient verbalized understanding of instructions. Patient awake, alert, oriented, respirations even and unlabored, skin warm and dry, color appropriate for race. No adverse reaction to meds given in ER noted upon discharge. Discussed medications. Advised to seek medical attention for new/prolonged/worsening of symptoms, patient ambulated from unit with steady gait in no apparent distress. [id number] 12:14:03 Patient arrived ambulatory c/o vomiting, fatigue, and mouth ulcers. Patient states this all started Friday. 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 Patient states she is having a cough since Friday. [facility]sch [id number] 00:00:00|| Colby De Paz [facility]2024-08-23 00:00:00|| Colby De Paz [facility]2024-05-30 00:00:00|| Colby De Paz [facility]2024-05-27 00:00:00|| Colby De Paz [place] [id number] 11:45:00 Gave patient collection kit with instructions [place] [id number] 13:42:05 Summary: [facility] [place] [facility] Received a fax from [facility] [place] with patients endoscopy report attached. Uploaded into patients chart under external provider records [facility]2024-02-07 16:30:00 Patient presented with specimen for drop-off and was identified by and name. Collection information/ total volume were documented accordingly. The following specimens were sent to [facility] laboratories per lab order on 12/31/2023 : 24 hour urine Random urine Stool 3 Swab Other [facility]2024-02-07 11:30:00 Patient provided with 3 collection kit and associated instructions for home collection. [facility]"
[2025-01-04] MEDS ORDERED: ASPIRIN 81 MG CHEWABLE TABLET ONE (16:24)
[2025-01-04 16:39] LABS: Absolute Eosinophils 0.2 K/uL (0-0.5); Absolute Lymphocytes (CBC) 2.8 K/uL (0.7-4.9); Absolute Monocytes 0.4 K/uL (0.1-1.3); Absolute Neutrophil 2.9 K/uL (1.8-8.0); Basophils % 0.8 % (0-1.3); Eosinophils % 2.9 % (0-4.4); MCH 23.5 pg (27.0-35.0); MCHC 32.4 g/dL (32.0-36.0); MCV 72.5 fL (80-100); Monocytes % 5.9 % (3.3-12.3); Neutrophils % 46.4 % (41.7-73.7); Nucleated Red Blood Cells % 0.2 % (0-0); Platelets 305 thou/uL (152-406); RBC Red Blood Cell Count 4.69 M/uL (3.86-4.86); Red Cell Distribution Width 16.9 % (12.1-15.2)
[2025-01-04 17:04] LABS: ALT/SGPT 27 U/L (13-56); AST/SGOT 14 U/L (15-37); Albumin 3.3 g/dL (3.4-5.0); Albumin/Globulin Ratio 0.8 (1.1-1.8); Alkaline Phosphatase 73 U/L (45-117); Anion Gap 8.6 mEq/L (5.0-15.0); BUN Blood Urea Nitrogen 14 mg/dL (7-18); Bicarbonate 25 mEq/L (21-32); Bilirubin Direct 0.2 mg/dL (0-0.2); Bilirubin Indirect, Calculated 0.3 mg/dL (0.2-0.8); Bilirubin Total 0.5 mg/dL (0.2-1.0); Globulin 4.3 g/dL (2.3-3.5); Glomerular Filtration Rate 97 ml/min (=/>90); Glucose Level 90 mg/dL (74-106); Magnesium 2.1 mg/dL (1.6-2.4); Potassium 3.6 mEq/L (3.5-5.1); Protein, Total 7.6 g/dL (6.4-8.2); Sodium Level 138 mEq/L (136-145)
[2025-01-04 17:05] LABS: Troponin High Sensitivity < 3.0 pg/mL (<58.9)
--- NOTE | 2025-01-04 17:08 | RAD REPORT ---
EXAMINATION: ONE VIEW CHEST XR CLINICAL INDICATION: Female, 34 years old.,CHEST PAIN TECHNIQUE: Frontal chest projection is submitted. Examination is limited by patient positioning and t echnique. COMPARISON: 12/04/2018 FINDINGS: The lungs are well inflated and clear. No pneumothorax or sizable effusion. The heart is normal in s ize. Mediastinal contours are unremarkable. IMPRESSION: No acute intrathoracic abnormalities.
--- NOTE | 2025-01-04 18:36 | RAD REPORT ---
EXAM: CT Chest For Pe Angio TECHNIQUE: CT angiogram of the chest was performed following intravenous contrast administration, inc luding sagittal and coronal as well as maximum intensity projection reformats. One or more of the following dose reduction techniques were used: Automated exposure control, adjustment of the mA and k V according to patient size, and iterative reconstruction. Unless otherwise specified, incidental findings do not require dedicated imaging follow-up. INDICATION: [facility] MAIN CHEST PAIN Bed Name: 19 N COMPARISON: None. FINDINGS: LINES/TUBES: None. PULMONARY ARTERIES: Main pulmonary arteries are normal in caliber. No filling defects within the pul monary arteries to suggest pulmonary embolus. LUNGS AND AIRWAYS: The lungs and central airways are normal without focal abnormality. PLEURA: No effusion or pneumothorax. HEART AND MEDIASTINUM: The visualized thyroid gland is normal. No mediastinal, hilar, or axillary lym phadenopathy. Heart is unremarkable. No pericardial effusion. SOFT TISSUES AND BONES: No acute osseous abnormality. No significant soft tissue finding. UPPER ABDOMEN: Unremarkable. IMPRESSION: No evidence of acute central pulmonary emboli. No suspicious intrathoracic findings..
--- NOTE | 2025-01-04 20:27 | EDPHYS ---
Physician Documentation [facility] Name: Lesly Cisneros Age: 34 yrs Sex: Female : 1990 Arrival Date: 01/04/2025 Time: 16:03 Bed 19 Private MD: ED Physician Ke Ponce HPI: 01/04 19:32 This 34 yrs old Female presents to ER via Ambulatory with complaints of ms3 Abdominal Pain. 19:32 34-year-old female with past medical history of autoimmune disorder, diabetes, anemia ms3 presents to the emergency department for stabbing bilateral upper abdominal pain that she rates an 8/10. Patient states symptoms began 10 minutes prior to arrival. Patient denies any alleviating or inciting factors. Patient denies fevers or vomiting. She endorses chills and nausea.. 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 - Infectious Disease History:: Denies. - Social history:: Smoking status: Reported history of juuling and/or vaping. ROS: 19:32 Constitutional: Negative for fever, and chills. Cardiovascular: Negative for chest ms3 pain, and palpitations. Respiratory: Negative for shortness of breath, cough, wheezing, and pleuritic chest pain, 19:32 Abdomen/GI: Positive for abdominal pain, nausea, Negative for vomiting, diarrhea, Exam: 17:21 ECG was reviewed by the Attending Physician. ms3 19:32 Constitutional: This is a well developed, well nourished patient who is awake, alert, ms3 and in no acute distress. Cardiovascular: Regular rate and rhythm with a normal S1 and S2. No gallops, murmurs, or rubs. Normal PMI, no JVD. No pulse deficits. Respiratory: Lungs have equal breath sounds bilaterally, clear to auscultation and percussion. No rales, rhonchi or wheezes noted. No increased work of breathing, no retractions or nasal flaring. 19:32 Abdomen/GI: Inspection: abdomen appears normal, Bowel sounds: normal, Palpation: moderate abdominal tenderness, in the epigastric area, right upper quadrant and left upper quadrant, Vital Signs: 16:13 BP 129 / 83; Pulse 72; Resp 18; Temp 98.2(O); Pulse Ox 99% on R/A; Weight 120 kg; cm10 Height 5 ft. 8 in. ; Pain 8/10; 17:00 BP 112 / 68; Pulse 94; Resp 17; Pulse Ox 100% ; cm10 18:00 BP 110 / 78; Pulse 62; Resp 17; Pulse Ox 99% ; cm10 18:30 BP 98 / 68; Pulse 58; Resp 17; Pulse Ox 100% on R/A; cm10 19:16 BP 118 / 74; Pulse 70; Resp 20 S; Temp 98; Pulse Ox 100% on R/A; aa10 20:27 BP 115 / 77; Pulse 66; Resp 20; Temp 98.5; Pulse Ox 98% on R/A; aa10 16:13 Body Mass Index 40.22 (120.00 kg, 172.72 cm) cm10 16:13 Pain Scale: Adult cm10 MDM: 16:11 Medical Screening Exam initiated ms3 19:32 Differential diagnosis: abnormal EKG, acute myocardial infarction, coronary artery ms3 disease pulmonary embolus. HEART Score: History: Slightly Suspicious (0), ECG: Normal (0), Age: < or = 45 years (0), Risk Factors: 1 or 2 risk factors (1), Troponin: < or = 1 x Normal Limit (0), Total Score = 1. Data reviewed: vital signs, nurses notes, lab test result(s), EKG, radiologic studies. 19:49 I considered the following discharge prescriptions or medication management in the [facility] [place] Medications were administered in the Emergency Department. See MAR. Independent interpretation of the following test(s) in the Emergency Department EKG: See my EKG interpretation above. Counseling: I had a detailed discussion with the patient and/or guardian regarding the historical points, exam findings, and any diagnostic results supporting the discharge/admit diagnosis, lab results, radiology results, the need for outpatient follow up, to return to the emergency department if symptoms worsen or persist or if there are any questions or concerns that arise at home. Special discussion: Based on the patient's history, exam, and Dx evaluation, there is no indication for emergent intervention or inpatient Tx. It is understood by the patient/guardian that if the Sx's persist or worsen they need to return immediately for re-evaluation. ED course: Discussed EKG, chest x-ray, CT PE findings with patient. Patient currently awaiting second troponin. If second troponin negative patient will be discharged with follow-up with Dr. Brewer in 2 to 3 days. Patient or stands and agrees with plan. All questions were answered. Return precautions discussed include worsening symptoms, or any other concerns. On reevaluation patient symptoms improved, patient is alert and oriented x 4, no apparent distress, nontoxic-appearing, ambulatory in the emergency department.. 01/04 16:11 Order name: Basic Metabolic Panel; Complete Time: 17:17 ms3 01/04 16:11 Order name: CBC with Diff; Complete Time: 17:17 ms3 01/04 16:11 Order name: D-Dimer; Complete Time: 17:41 ms3 01/04 16:11 Order name: LFT's; Complete Time: 17:17 ms3 01/04 16:11 Order name: Magnesium; Complete Time: 17:17 ms3 01/04 16:11 Order name: Troponin HS; Complete Time: 17:17 ms3 01/04 16:20 Order name: Lipase; Complete Time: 17:17 cm10 01/04 17:41 Order name: Troponin High Sensitivity; Complete Time: 20:25 ms3 01/04 16:11 Order name: XRAY Chest (1 view); Complete Time: 17:17 ms3 01/04 17:42 Order name: CT Chest For PE Angio; Complete Time: 18:51 ms3 01/04 16:11 Order name: Cardiac monitoring; Complete Time: 16:49 ms3 01/04 16:11 Order name: EKG - Nurse/Tech; Complete Time: 16:49 ms3 01/04 16:11 Order name: IV Saline Lock; Complete Time: 16:31 ms3 01/04 16:11 Order name: Labs collected and sent; Complete Time: 16:31 ms3 01/04 16:11 Order name: O2 Per Protocol; Complete Time: 16:31 ms3 01/04 16:11 Order name: O2 Sat Monitoring; Complete Time: 16:31 ms3 EC:21 Rate is 68 beats/min. Rhythm is regular. QRS Warren is Normal. MS interval is normal. QRS ms3 interval is normal. Clinical impression: Normal ECG. Interpreted by me. Reviewed by me. Administered Medications: 16:31 Drug: Aspirin PO Chewable Tablet 324 mg PO once; 81 mg tablets x 4 Route: PO; cm10 20:27 Follow up: Response: No adverse reaction; Marked relief of symptoms aa10 Disposition Summary: 01/04/25 20:26 Discharge Ordered Notes: Location: Home kb Condition: Stable kb Diagnosis - Upper abdominal pain, unspecified kb - Chest pain, unspecified kb Followup: ms3 - With: Claus Brewer MD - When: 2 - 3 days - Reason: Recheck today's complaints Discharge Instructions: - Discharge Summary Sheet ms3 - Nonspecific Chest Pain, Adult ms3 - Electrocardiogram ms3 Forms: - Medication Reconciliation Form kb - Antibiotic Education kb - Prescription Opioid Use kb - Patient Portal Instructions kb - Leadership Thank You Letter kb Prescriptions: - Pepcid 20 mg Oral Tablet - take 1 tablet ORAL route every 12 hours for 5 days; 10 tablet; Refills: 0, ms3 Product Selection Permitted Signatures: Dispatcher [employer] EDMS Barbara Hoover, PHOTOENGRAVING ETCHER-C PHOTOENGRAVING ETCHER-[employer] Ke Ponce DO DO ms3 Kaylee Vee RN RN cm10 Feliciano Grajeda RN aa10 Corrections: (The following items were deleted from the chart) 16:12 16:12 BASIC METABOLIC PANEL+C.LAB.BRZ ordered. EDMS EDMS 16:12 16:12 CBC+H.LAB.BRZ ordered. EDMS EDMS 16:12 16:12 D-DIMER+COAG.LAB.BRZ ordered. EDMS EDMS 16:12 16:12 HEPATIC FUNCTION+C.LAB.BRZ ordered. EDMS EDMS 16:12 16:12 MAGNESIUM+C.LAB.BRZ ordered. EDMS EDMS 16:12 16:12 Troponin High Sensitivity+C.LAB.BRZ ordered. EDMS EDMS 16:12 16:12 Chest Single View+RAD.RAD.BRZ ordered. EDMS EDMS 17:42 17:42 Troponin High Sensitivity+C.LAB.BRZ ordered. EDMS EDMS 17:42 17:42 Chest For PE Angio+CT.RAD.BRZ ordered. EDMS EDMS 19:52 19:49 ED course: Discussed EKG, chest x-ray, CT PE findings with patient. Patient ms3 currently awaiting second troponin. If second troponin negative patient will be discharged with follow-up with Dr. Levy in 1 to 2 days. Patient or stands and agrees with plan. All questions were answered. Return precautions discussed include worsening symptoms, or any other concerns. On reevaluation patient symptoms improved, patient is alert and oriented x 4, no apparent distress, nontoxic-appearing, ambulatory in the emergency department.. ms3
--- NOTE | 2025-01-04 20:27 | ER ---
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 Pt states that the pain came on suddenly. Pt also reports nausea. Coronavirus screen: Client denies travel out of the [place] in the last 14 days. Ebola Screen: Patient denies travel to an Ebola-affected area in the 21 days before illness onset. Initial Sepsis Screen: Does the patient meet any 2 criteria? No. Patient's initial sepsis screen is negative. Does the patient have a suspected source of infection? No. Patient's initial sepsis screen is negative. Risk Assessment: Do you want to hurt yourself or someone else? Patient reports no desire to harm self or others. Onset of symptoms was January 04, 2025. 16:13 Method Of Arrival: Ambulatory cm10 16:13 Acuity: DI 3 cm10 Triage Assessment: 16:16 General: Appears in no apparent distress. comfortable, Behavior is calm, cooperative. cm10 Pain: Complains of pain in epigastric area, right upper quadrant and left upper quadrant Pain does not radiate. Pain currently is 8 out of 10 on a pain scale. Quality of pain is described as sharp, Pain began suddenly. Neuro: No deficits noted. Level of Consciousness is awake, alert, obeys commands, Oriented to person, place, time, situation, Appropriate for age. Respiratory: No deficits noted. Airway is patent Respiratory effort is even, unlabored, Respiratory pattern is regular, symmetrical. GI: No deficits noted. Abdomen is obese, Reports upper abdominal pain, nausea. Derm: No deficits noted. Skin is healthy with good turgor, Skin is pink, warm \T\ dry. Musculoskeletal: Range of motion: intact in all extremities. 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 - Infectious Disease History:: Denies. - Social history:: Smoking status: Reported history of juuling and/or vaping. Screenin:18 [facility] ED Fall Risk Assessment (Adult) History of falling in the last 3 months, cm10 including since admission No falls in past 3 months (0 pts) Confusion or Disorientation No (0 pts) Intoxicated or Sedated No (0 pts) Impaired Gait No (0 pts) Mobility Assist Device Used No (0 pt) Altered Elimination No (0 pt) Score/Fall Risk Level 0 - 2 = Low Risk Oriented to surroundings, Maintained a safe environment, Hourly rounding (assess needs \T\ fall precautionary measures) done. Abuse screen: Denies threats or abuse. Denies injuries from another. Nutritional screening: No deficits noted. Tuberculosis screening: No symptoms or risk factors identified. Assessment: 17:55 Reassessment: Patient appears in no apparent distress at this time. Patient and/or cm10 family updated on plan of care and expected duration. Pain level reassessed. Patient states feeling better. Patient states symptoms have improved. 19:15 Reassessment: Patient appears in no apparent distress at this time. No changes from aa10 previously documented assessment. Patient and/or family updated on plan of care and expected duration. Pain level reassessed. Patient is alert, oriented x 3, equal unlabored respirations, skin warm/dry/pink. Pain: Complains of pain in abdomen Pain does not radiate. Pain level that patient reports is acceptable is 4 out of 10 on a pain scale. Quality of pain is described as aching, Pain began gradually, Is intermittent, Alleviated by medications, rest, repositioning, Aggravated by exercise, increased activity, Noted to be quiet/stoic. 20:25 Cardiovascular: No deficits noted. Capillary refill < 3 seconds. GI: Bowel sounds aa10 present X 4 quads. Abd is soft and non tender X 4 quads. Vital Signs: 16:13 BP 129 / 83; Pulse 72; Resp 18; Temp 98.2(O); Pulse Ox 99% on R/A; Weight 120 kg; cm10 Height 5 ft. 8 in. ; Pain 8/10; 17:00 BP 112 / 68; Pulse 94; Resp 17; Pulse Ox 100% ; cm10 18:00 BP 110 / 78; Pulse 62; Resp 17; Pulse Ox 99% ; cm10 18:30 BP 98 / 68; Pulse 58; Resp 17; Pulse Ox 100% on R/A; cm10 19:16 BP 118 / 74; Pulse 70; Resp 20 S; Temp 98; Pulse Ox 100% on R/A; aa10 20:27 BP 115 / 77; Pulse 66; Resp 20; Temp 98.5; Pulse Ox 98% on R/A; aa10 16:13 Body Mass Index 40.22 (120.00 kg, 172.72 cm) cm10 16:13 Pain Scale: Adult cm10 ED Course: 16:06 Patient arrived in ED. iw 16:06 Ke Ponce DO is Attending Physician. ms3 16:13 Kaylee Vee, RN is Primary Nurse. cm10 16:15 Triage completed. cm10 16:16 Arm band placed on right wrist. Patient placed in an exam room, on a stretcher. cm10 16:19 Patient has correct armband on for positive identification. Bed in low position. Call cm10 light in reach. Side rails up X2. Provided Education on: ER process and procedures.. 16:32 Lipase Sent. cm10 16:32 Basic Metabolic Panel Sent. cm10 16:32 CBC with Diff Sent. cm10 16:32 D-Dimer Sent. cm10 16:32 LFT's Sent. cm10 16:32 Magnesium Sent. cm10 16:32 Troponin HS Sent. cm10 16:32 Initial lab(s) drawn, by dc, sent to lab. Inserted saline lock: 20 gauge in right cm10 antecubital area, using aseptic technique. Blood collected. Flushed with 10 mL NS. 17:03 XRAY Chest (1 view) In Process Unspecified. EDMS 18:17 CT Chest For PE Angio In Process Unspecified. EDMS 20:25 No provider procedures requiring assistance completed. Patient maintains SpO2 aa10 saturation greater than 95% on room air. 20:26 Claus Brewer MD is Referral Physician. kb 20:26 Client placed on continuous cardiac and pulse oximetry monitoring. NIBP monitoring aa10 applied. ekg monitor tech on. Pulse ox on. NIBP on. 20:28 IV discontinued. aa10 Administered Medications: 16:31 Drug: Aspirin PO Chewable Tablet 324 mg PO once; 81 mg tablets x 4 Route: PO; cm10 20:27 Follow up: Response: No adverse reaction; Marked relief of symptoms aa10 Medication: 16:18 VIS not applicable for this client. cm10 Outcome: 20:26 Discharge ordered by MD. justice 20:28 Discharged to home ambulatory, aa10 20:28 Condition: good 20:28 Discharge instructions given to patient, 20:35 Patient left the ED. aa10 Signatures: Dispatcher [employer] EDMS Barbara Hoover, KARISSA-Dwain HANCOCK-An Flores, RN RN iw Ke Ponce DO DO ms3 Kaylee Vee RN RN cm10 Feliciano Grajeda RN RN aa10
[2025-01-05 05:51] VITALS: BP 115/77; TEMP 98.5; O2SAT 98
== END 2025-01-04 20:35 | disposition home or self-care (01) ==
LOC: ER 16:03
DX: R10.10 Upper abdominal pain, unspecified (principal); R07.9 Chest pain, unspecified
CPT/HCPCS: 85025; 80048; 36415; 83735; 85379; 80076; 84484 ×2; 83690; 71275; 71045; Q9967; 93005